=== PATIENT | female | born 1990 | race Caucasian/White ===

== ENCOUNTER 2017-12-14 08:15 | Emergency (ER) | payer MEDICAID, SELFPAY ==
[2017-12-14 08:25] VITALS: BP 119/73; PULSE 74; RESP 16; TEMP 36.6; O2SAT 99
--- NOTE | 2017-12-14 08:58 | DI.CT_ITS ---
SYMPTOM/DIAGNOSIS: HEADACHE R/O ACUTE DISEASE CRANIAL CT (WITHOUT CONTRAST): Noncontrast. No priors. A noncontrast cranial CT was performed. The ventricular system is normal in appearance. There is no evidence of an intracranial mass lesion. There is no evidence of a subdural or epidural hematoma. No focal areas of decreased attenuation are seen. CONCLUSION: Normal noncontrast Cranial CT. The findings were discussed with the Emergency Department on the date of the examination.
--- NOTE | 2017-12-14 09:01 | ED.GENADUL_ITS ---
Discharge Plan Disposition Patient Disposition: HOME Condition: Improving Discharge Details Chief Complaint: Headache Clinical Impression: Headache, Abdominal pain Primary Care Provider: Abbey Fuentes ED Provider: Precious Paiz Home Meds and New Rx's Prescriptions: Continue levothyroxine 125 MCG tablet 125 mcg PO DAILY@0600 Qty: 30 RF: 0 acetaminophen [Tylenol] 325 MG tablet 1,000 mg PO Q4H PRN PRNRF: 0 amoxicillin 500 mg Capsule 1 tab PO Q8H RF: 0 sertraline 25 mg Tablet 25 mg PO DAILY RF: 0 ibuprofen 600 MG tablet 600 mg PO Q6H PRN PRNRF: 0 Discharge Instructions Instructions: Abdominal Pain (ED), General Headache (ED) Additional Instructions: Drink plenty of fluids and get plenty of rest. Alternate Tylenol and Motrin as needed and directed for pain. Follow-up with her primary care doctor in 1 week for reevaluation. Return to the emergency department with any worsening or new concerning symptoms. Discharge Data Discharge Date/Time-TO BE ENTERED AT DEPARTURE: 12/14/17 11:17 Discharge Physician: Precious Paiz Medical Decision Making Patient is a 27-year-old female with a history of anxiety, depression and hypothyroidism who presents for headache and abdominal pain for 2 days. Headache is bitemporal, worse when bending over. Admits to photophobia and blurry vision but denies any nausea, vomiting, diarrhea neck pain, urinary symptoms, dizziness. She denies a history of headaches but has a family history of migraines. She states the headache started gradually and denies thunderclap and states is not the worst headache of her life. Vitals within normal limits. No focal deficits. Abdomen is soft but very minimally diffusely tender. No meningeal signs. She appears nontoxic and in no acute distress but does appear uncomfortable with headache. She is currently on amoxicillin for a recent dental abscess but denies any dental pain and no acute abscess noted on exam. Differential diagnosis includes tension headache, dehydration, migraine. Doubt meningitis as she denies fever, neck pain and no focal deficits. Will place an IV, bolus IV fluids, Compazine, Benadryl, Toradol and obtain a CT head. Will hold on CT abdomen at this time and the patient is agreeable. 1050 -- Labs reviewed and unremarkable. CT head negative. Patient states she feels much better and is requesting to go home. Patient that her symptoms can be due to tension headache, migraine, dehydration. Also discussed the possibility of serious causes of headache but doubt meningitis, or subarachnoid hemorrhage and patient agrees and would not want LP. Patient instructed on the importance of rest, fluids. Will send home with 2 tabs of Compazine. She is instructed to alternate Tylenol and Motrin. She is instructed to return here immediately with any worsening symptoms and follow-up with her primary care doctor early next week. HPI General Mode of arrival: ambulatory . Date/Time Provider Initiated Documentation: 12/14/17 08:26 . Limitations to Documentation: no limitations . Information obtained by: patient . HPI Narrative: Patient is a 27-year-old female with history of anxiety, depression and hypothyroidism who presents for headache and abdominal pain for the past 2 days. States the headache is bitemporal, throbbing, worse with bending over, and no improvement with Tylenol or Motrin. She states she woke up at 3 AM this morning crying due to the headache and states it is 9/10. She states the headache began gradually 2 days ago and has worsened since then. Denies thunderclap-like headache. States it feels like she is hearing a pulse in my ears . Denies known history of headaches or migraines but does admit to a family history of migraines. She states her abdominal pain started around the same time and is diffuse, stabbing and feels like she was kicked in the got . She states she has been eating and drinking normally and denies nausea, vomiting, diarrhea, fever, urinary symptoms. She does admit to photophobia and blurry vision. She denies dizziness, neck pain. Her last dose of Tylenol was 3 :30 AM. History: Anxiety, depression, hypothyroidism Surgical history: Tubal ligation, dental surgery as a child Social history: Smokes tobacco, daily marijuana use, denies alcohol use. FH: Migraines - grandmother and aunt Medications: Zoloft, Tylenol, ibuprofen, Synthroid, on amoxicillin currently for a dental abscess which is improving. Allergies: Prozac, Remeron Bad side effects PCP: Abbey Fuentes LMP: 2 weeks ago Related Data Home Medications Medication Instructions Recorded Confirmed ibuprofen 600 mg PO Q6H PRN PRN tab 04/28/17 12/14/17 levothyroxine 125 mcg PO DAILY@0600 #30 tab 05/28/17 12/14/17 acetaminophen [Tylenol] 1,000 mg PO Q4H PRN PRN 12/14/17 12/14/17 amoxicillin 1 tab PO Q8H 12/14/17 12/14/17 sertraline 25 mg PO DAILY 12/14/17 12/14/17 Previous Rx's Medication Instructions Recorded ibuprofen 600 mg PO Q6H PRN PRN tab 04/28/17 levothyroxine 125 mcg PO DAILY@0600 #30 tab 05/28/17 Allergies Allergy/AdvReac Type Severity Reaction Status Date / Time mirtazapine [From Remeron] AdvReac Severe Agitation Unverified 08/01/17 12:56 fluoxetine HCl [From Prozac] AdvReac Agitation Unverified 08/01/17 12:56 General Stated Complaint: Headache MELBA: 3 Review of Systems Review of Systems All systems reviewed & are unremarkable except as noted in HPI and below Constitutional Denies chills, Denies excessive sweating, Denies fatigue, Denies fever(s), Reports headache(s), Denies weakness and Denies weight loss Eyes Reports system reviewed and no additional complaints, except as docu and Reports blurry vision ENT Denies vertigo, Denies dizziness, Denies otalgia, Reports headache(s), Denies nasal congestion, Denies sore throat and Denies throat swelling Cardiovascular Denies chest pain, Denies syncope, Denies rapid heart rate and Denies dyspnea Respiratory Denies dyspnea Gastrointestinal Reports abdominal pain, Denies diarrhea and Denies vomiting Genitourinary Denies hematuria, Denies dysuria and Denies flank pain Musculoskeletal Denies back pain and Denies joint swelling Integumentary/Breasts Denies lesions and Denies rash Neurologic Denies behavioral changes, Denies confusion, Denies vertigo, Denies dizziness, Denies syncope, Reports headache(s) and Denies weakness Psychiatric Denies behavioral changes, Denies confusion and Denies depression Endocrine Denies excessive sweating and Denies fatigue Hematologic/Lymphatic Denies easy bruising and Denies lymphadenopathy Allergic/Immunologic Denies throat swelling PFSH Family History Mother No problems noted. Father FHx: Sibxuke-Voykp-Dwlyi disease Maternal Aunt No problems noted. Maternal Cousin No problems noted. Medical History Anxiety with depression Hypothyroidism Poor dentition Root canal Social History Smoking/Tobacco Use Status: Current every day Surgical History Ligation of fallopian tube (07/18/17) Exam Const General: cooperative and healthy appearing Orientation: alert and awake HENMI Head: normal to inspection Ears: hearing grossly normal bilaterally, external ears normal and TM's normal bilaterally General nose exam: external nose normal Face and sinus: sinus tenderness frontal (bilaterally) Mouth: oral mucosae normal Teeth and gingiva: dentition normal Throat: posterior oropharynx normal and uvula midline Eyes General: appearance normal, both eyes and all related structures Eyelids: eyelids normal Pupils: PERRL EOM: EOM intact bilaterally Neck Neck: normal visual inspection Lymphatic: no lymphadenopathy noted Chest Chest: normal inspection of the chest Resp Effort & Inspection: normal respiratory effort and able to speak in complete sentences Auscultation: clear to auscultation bilaterally Cardio Rate: regular rate Rhythm: regular rhythm GI Inspection: normal to inspection Palpation: soft, not firm, no guarding, no hepatosplenomegaly, no masses and tender (very minimal diffusely tender) Auscultation: normal bowel sounds Back/Spine/Pelvis Back: no CVA tenderness Skin General skin exam: no rashes or lesions noted Neuro General: alert, awake, oriented x3 and no focal motor deficits Cranial Nerves: CN's II-XI intact bilaterally Cognition: normal cognition Speech: speech normal Gait: normal gait Motor: muscle tone normal throughout and strength 5/5 throughout Sensory Exam: no sensory deficits noted Other: Negative Kernig's and Brudzinski's signs Extrem General: normal to inspection, full ROM and normal capillary refill Psych Appearance: grossly normal Mental Status: mental status grossly normal Speech and Movement: speech and movement normal Affect: normal affect Thought Process: normal Course Vital Signs Temperature 97.9 F 12/14/17 08:25 Pulse 74 12/14/17 08:25 Respiratory Rate 16 12/14/17 08:25 Blood Pressure 119/73 12/14/17 08:25 Pulse Oximetry 99 12/14/17 08:25 Temperature 97.9 F 12/14/17 08:25 Temperature Source Temporal Artery Scan 12/14/17 08:25 Pulse 74 12/14/17 08:25 Respiratory Rate 16 12/14/17 08:25 Respiratory Effort 12/14/17 08:30 Blood Pressure 119/73 12/14/17 08:25 Pulse Oximetry 99 12/14/17 08:25 Oxygen Delivery Method Room Air 12/14/17 08:25 Oxygen Flow Rate 0 12/14/17 08:25 Pain Level 9 12/14/17 08:34 Lab/Test Results Lab/Test Results: POC- Test(urine) Negative
[2017-12-14] MEDS: diphenhydrAMINE 50 MG/ML VIAL 25 MG IVP (09:14)
[2017-12-14] MEDS: Prochlorperazine 10 MG/2 ML VIAL IVP (09:15)
[2017-12-14] MEDS: Ketorolac 30 MG/ML VIAL IVP (09:15)
[2017-12-14 09:23] LABS: HCT 41.3 % (36.0-46.0); HGB 14.2 g/dL (12.0-15.5); Mean Corp. HGB Concentration 34.4 g/dL (32.0-36.0); Mean Corpuscular Hemoglobin 30.8 pg (27.0-33.0); Mean Corpuscular Volume 89.6 fL (80-95); Mean Platelet Volume 9.2 fL (8.0-11.0); Platelet Count 289 x1000/uL (130-400); RBC 4.61 m/cumm (4.00-5.20); RBC Distribution Width 13.8 % (11.7-14.6); White Blood Cell Count 7.57 k/cumm (4.4-10.8)
[2017-12-14 09:39] LABS: ALT 27 U/L (12-78); AST 13 U/L (15-37); Alkaline Phosphatase 41 U/L (46-116); Anion Gap 6.7 mmol/L (3-11); BUN 13 mg/dL (7-18); Bilirubin, Total 0.3 mg/dL (0.2-1.0); CO2 28.3 mmol/L (21.0-32.0); Calcium 8.3 mg/dL (8.5-10.1); Chloride 102 mmol/L (98-107); Glucose 91 mg/dL (70-100); Lipase 103 U/L (73-393); Potassium 3.9 mmol/L (3.5-5.1); Sodium 137 mmol/L (136-145); Total Protein 7.2 g/dL (6.4-8.2)
[2017-12-14 11:06] VITALS: BP 102/60; PULSE 54; RESP 17; TEMP 36.8; O2SAT 98
[2017-12-14] MEDS: Prochlorperazine 10 MG TAB PO (11:17)
== END 2017-12-14 11:17 | disposition home or self-care (01) ==
PROVIDERS: Emergency Provider Physician Assistant; PCP Nurse Practitioner Family
DX: R51 Headache (principal); R10.817 Generalized abdominal tenderness
CPT/HCPCS: 36415; 80053; 81025; 83690; 85027; 96374; 96375; 99284; 70450; 99285; J0780; J1200; J1885

== ENCOUNTER 2018-04-15 14:21 | Outpatient (REF) | payer MEDICAID, SELFPAY | END 2018-04-15 14:41 | LOC: NCHCN 14:21 | PROVIDERS: PCP Nurse Practitioner Family; Visit Provider Nurse Practitioner Family | DX: R30.0 Dysuria (principal) | CPT/HCPCS: 87077; 87086; 87186 ==

== ENCOUNTER 2018-08-06 11:13 | Outpatient (REF) | payer SELFPAY ==
[2018-08-06 12:54] LABS: TSH (W/Ref FT4) 30.07 uIU/mL (0.358-3.74)
[2018-08-06 13:17] LABS: FREE T4 0.59 ng/dL (0.76-1.46)
== END 2018-08-06 11:33 ==
LOC: NCHCN 11:13
PROVIDERS: PCP Nurse Practitioner Family; Visit Provider Nurse Practitioner Family
DX: E03.9 Hypothyroidism, unspecified (principal)
CPT/HCPCS: 84439; 84443

== ENCOUNTER 2018-08-19 13:53 | Outpatient (CLI) | payer SELFPAY ==
--- NOTE | 2018-08-19 13:27 | DI.RAD_ITS ---
SYMPTOMS/DIAGNOSIS: RIGHT HEEL PAIN X 2 MOS, M79.671 RIGHT FOOT: Three views were obtained. There is a minimal osteophyte at the site of attachment of the Achilles tendon on the calcaneus. No other bony or soft tissue abnormality seen.
== END 2018-08-19 14:13 ==
PROVIDERS: PCP Nurse Practitioner Family; Visit Provider Nurse Practitioner Family
DX: M79.671 Pain in right foot (principal); M25.771 Osteophyte, right ankle
CPT/HCPCS: 73630

== ENCOUNTER 2019-05-21 13:16 | Outpatient (REF) | payer MEDICAID, SELFPAY ==
[2019-05-21 20:45] LABS: HCT 39.1 % (36.0-46.0); HGB 13.1 g/dL (12.0-15.5); Mean Corp. HGB Concentration 33.5 g/dL (32.0-36.0); Mean Corpuscular Hemoglobin 31.3 pg (27.0-33.0); Mean Corpuscular Volume 93.3 fL (80-95); Platelet Count 346 x1000/uL (130-400); RBC 4.19 m/cumm (4.00-5.20); RBC Distribution Width 13.9 % (11.7-14.6); White Blood Cell Count 7.59 k/cumm (4.4-10.8)
[2019-05-21 20:58] LABS: ALT 42 U/L (14-59); AST 31 U/L (15-37); Albumin 4.7 g/dL (3.4-5.0); Alkaline Phosphatase 37 U/L (46-116); BUN 9 mg/dL (7-18); Bilirubin, Total 0.2 mg/dL (0.2-1.0); CREATININE 0.73 mg/dL (0.55-1.02); Chloride 102 mmol/L (98-107); Glucose 78 mg/dL (74-106); Potassium 4.1 mmol/L (3.5-5.1); Sodium 138 mmol/L (136-145); Total Protein 7.9 g/dL (6.4-8.2)
[2019-05-21 21:22] LABS: TSH (W/Ref FT4) 80.35 uIU/mL (0.36-3.74)
[2019-05-21 21:39] LABS: FREE T4 0.39 ng/dL (0.76-1.46)
== END 2019-05-21 13:36 ==
LOC: NCHCN 13:16
PROVIDERS: PCP Nurse Practitioner Family; Visit Provider Nurse Practitioner Family
DX: E03.9 Hypothyroidism, unspecified (principal)
CPT/HCPCS: 80053; 85027; 84439; 84443

== ENCOUNTER 2019-07-17 13:55 | Outpatient (REF) | payer MEDICAID, SELFPAY ==
[2019-07-17 15:39] LABS: ALT 20 U/L (14-59); AST 16 U/L (15-37); Albumin 4.2 g/dL (3.4-5.0); Alkaline Phosphatase 39 U/L (46-116); Anion Gap 9.3 mmol/L (3-11); BUN 11 mg/dL (7-18); Bilirubin, Total 0.3 mg/dL (0.2-1.0); CO2 26.7 mmol/L (21.0-32.0); CREATININE 0.78 mg/dL (0.55-1.02); Calcium 8.8 mg/dL (8.5-10.1); Chloride 102 mmol/L (98-107); Glucose 97 mg/dL (74-106); Potassium 3.9 mmol/L (3.5-5.1); Sodium 138 mmol/L (136-145); TSH (W/Ref FT4) 76.49 uIU/mL (0.36-3.74); Total Protein 7.6 g/dL (6.4-8.2)
[2019-07-17 16:13] LABS: FREE T4 0.43 ng/dL (0.76-1.46)
== END 2019-07-17 14:15 ==
LOC: NCHCN 13:55
PROVIDERS: PCP Nurse Practitioner Family; Visit Provider Nurse Practitioner Family
DX: E03.9 Hypothyroidism, unspecified (principal); Z00.00 Encounter for general adult medical examination without abnormal findings
CPT/HCPCS: 80053; 84439; 84443

== ENCOUNTER 2019-08-13 22:18 | Outpatient (REF) | payer MEDICAID, SELFPAY ==
[2019-08-15 07:29] LABS: COVID-19 RT-PCR Result NEGATIVE (Negative)
== END 2019-08-13 22:38 ==
LOC: NCHCN 22:18
PROVIDERS: PCP Nurse Practitioner Family; Visit Provider Nurse Practitioner Family
DX: Z11.59 Encounter for screening for other viral diseases (principal)
CPT/HCPCS: U0003

== ENCOUNTER 2019-10-13 18:56 | Outpatient (REF) | payer MEDICAID, SELFPAY ==
[2019-10-13 18:36] LABS: Bilirubin Negative (Negative); Blood Trace-lysed (Negative); Clarity Clear (Clear); Glucose Negative (Negative); Ketones Negative (Negative); Leukocyte Esterase Negative (Negative); Nitrite Negative (Negative); Specific Gravity 1.015 (1.005-1.025); Urobilinogen 0.2 EU/dL (Up TO 0.2); pH 5.5 (5-8)
[2019-10-13 18:43] LABS: Bacteria Rare HPF (Negative); C & S Indicated? C&S Done As Ordered; Casts Negative LPF (Negative); Crystals Negative HPF (Negative); Epithelial Cells Few HPF (Negative); Mucus Negative (Negative); RBC 0-2 HPF (0-2)
[2019-10-13 18:50] LABS: HCT 39.1 % (36.0-46.0); Mean Corp. HGB Concentration 33.2 g/dL (32.0-36.0); Mean Corpuscular Hemoglobin 30.7 pg (27.0-33.0); Mean Corpuscular Volume 92.2 fL (80-95); Mean Platelet Volume 10.2 fL (8.0-11.0); Platelet Count 345 x1000/uL (130-400); RBC 4.24 m/cumm (4.00-5.20); RBC Distribution Width 13.8 % (11.7-14.6); White Blood Cell Count 7.67 k/cumm (4.4-10.8)
[2019-10-13 19:07] LABS: ALT 43 U/L (14-59); AST 25 U/L (15-37); Albumin 4.2 g/dL (3.4-5.0); Alkaline Phosphatase 46 U/L (46-116); BUN 12 mg/dL (7-18); Bilirubin, Total 0.2 mg/dL (0.2-1.0); Calcium 9.4 mg/dL (8.5-10.1); Chloride 103 mmol/L (98-107); Glucose 93 mg/dL (74-106); Potassium 4.5 mmol/L (3.5-5.1); Sodium 139 mmol/L (136-145); TSH (W/Ref FT4) 26.38 uIU/mL (0.36-3.74); Total Protein 7.4 g/dL (6.4-8.2)
[2019-10-13 19:25] LABS: FREE T4 0.64 ng/dL (0.76-1.46)
== END 2019-10-13 19:16 ==
LOC: NCHCN 18:56
PROVIDERS: PCP Nurse Practitioner Family; Visit Provider Nurse Practitioner Family
DX: R53.83 Other fatigue (principal); E03.9 Hypothyroidism, unspecified; E04.9 Nontoxic goiter, unspecified
CPT/HCPCS: 80053; 85027; 81003; 81015; 84439; 84443; 87086

== ENCOUNTER 2019-11-12 00:50 | Outpatient (CLI) | payer MEDICAID, SELFPAY ==
--- NOTE | 2019-11-12 | DI.US_ITS ---
EXAM: US THYROID CLINICAL HISTORY: ENLARGED THYROID,E04.9,HYPOTHYROIDISM,E03.9 TECHNIQUE: Ultrasound performed using standard protocol. COMPARISON: US [facility] OB from 04/26/2017 FINDINGS: Thyroid ultrasound was performed according to the usual protocol. Thyroid gland is markedly heteroge neous and atrophic, right lobe measures 36 x 10 x 11 millimeters and left lobe measures 41 x 6.7 x 13 millimeters. No focal lesion identified. IMPRESSION: Atrophic heterogeneous thyroid gland. No focal abnormality seen. DATA REPOSITORY:
== END 2019-11-12 01:10 ==
PROVIDERS: PCP Nurse Practitioner Family; Visit Provider Nurse Practitioner Family
DX: E03.4 Atrophy of thyroid (acquired) (principal); E04.9 Nontoxic goiter, unspecified
CPT/HCPCS: 76536

== ENCOUNTER 2020-03-23 15:47 | Outpatient (REF) | payer MEDICAID, SELFPAY ==
[2020-03-23 21:04] LABS: TSH (W/Ref FT4) 114.11 uIU/mL (0.36-3.74)
[2020-03-23 21:25] LABS: FREE T4 0.25 ng/dL (0.76-1.46)
== END 2020-03-23 16:07 ==
LOC: NCHCN 15:47
PROVIDERS: PCP Nurse Practitioner Family; Visit Provider Nurse Practitioner Family
DX: E03.9 Hypothyroidism, unspecified (principal); M54.5 Low back pain; R82.998 Other abnormal findings in urine
CPT/HCPCS: 84439; 84443; 87086

== ENCOUNTER 2020-10-25 13:07 | Outpatient (REF) | payer MEDICAID, SELFPAY ==
[2020-10-25 19:33] LABS: Abs Immature Grans 0.02 10^3/uL (0.0-0.06); Absolute Basophil Count 0.08 10^3/uL (0.0-0.2); Absolute Eosinophil Count 0.36 10^3/uL (0.0-0.7); Absolute Lymphocyte Count 2.96 10^3/uL (1.2-3.4); Absolute Monocyte Count 0.41 10^3/uL (0.1-0.8); Absolute Neutrophil Count 4.11 10^3/uL (1.2-6.7); Eosinophils % 4.5; HCT 37.3 % (36.0-46.0); HGB 12.3 g/dL (11.2-15.7); Immature Grans % 0.3; Lymphocytes % 37.3; MCH 30.8 pg (27.0-33.0); MCV 93.5 fL (80-95); MPV 10.1 fL (8.0-11.0); Monocytes % 5.2; Neutrophils % 51.7; Nucleated RBC 0 %; Platelet Count 327 10^3/uL (130-400); RBC 3.99 10^6/uL (3.93-5.22); RDW 15.2 % (11.7-14.6); RDW-SD 52.9 fL; WBC 7.94 10^3/uL (4.4-10.8)
[2020-10-25 19:36] LABS: ALT 45 U/L (14-59); AST 31 U/L (15-37); Albumin 4.8 g/dL (3.4-5.0); Alkaline Phosphatase 42 U/L (46-116); Anion Gap 8.7 mmol/L (3-11); BUN 9 mg/dL (7-18); Bilirubin, Total 0.3 mg/dL (0.2-1.0); CO2 29.3 mmol/L (21.0-32.0); CREATININE 0.9 mg/dL (0.55-1.02); Calcium 9.6 mg/dL (8.5-10.1); Chloride 102 mmol/L (98-107); Glucose 89 mg/dL (74-106); Lipase 97 U/L (73-393); Potassium 4.2 mmol/L (3.5-5.1); Sodium 140 mmol/L (136-145); Total Protein 8.1 g/dL (6.4-8.2)
== END 2020-10-25 13:08 | disposition home or self-care (01) ==
LOC: LBN 13:07
PROVIDERS: PCP Nurse Practitioner Family; Visit Provider Nurse Practitioner Family
DX: R19.01 Right upper quadrant abdominal swelling, mass and lump (principal); R10.11 Right upper quadrant pain
CPT/HCPCS: 80053; 83690; 85025

== ENCOUNTER 2020-10-26 01:29 | Outpatient (CLI) | payer MEDICAID, SELFPAY ==
--- NOTE | 2020-10-26 07:30 | DI.CT_ITS ---
Exam(s) CT ABDOMEN PELVIS W EXAM: CT ABDOMEN PELVIS W CLINICAL HISTORY: RUQ abdominal mass unknown etiology,R19.00. TECHNIQUE: Imaging Protocol: Axial computed tomography images with coronal and sagittal reformatted images were created and reviewed CONTRAST MATERIAL: Intravenous: Omnipaque 350 Contrast volume:100 ml Oral: yes / COMPARISON: No exams were available for comparison FINDINGS: ABDOMEN: Lung Bases: Normal where visualized. Liver: Enlarged. Moderate to severe fatty infiltration.. No measurable mass. Gallbladder and biliary tract: No radiodense calculus or dilation. Pancreas: Normal density, no abnormal calcifications or inflammatory process. Spleen: Normal. Kidneys: Normal size, contour and axis. No radiodense stones or obstructive uropathy. No masses seen. Adrenal glands: No masses seen. Abdominal Aorta: Abdominal portion non-dilated. Soft tissues: No soft tissue mass or abdominal wall hernia. PELVIS: Bladder: No gross wall thickening. No calculi.No focal mass. Bowel: No obstruction or bowel wall thickening. Appendix normal. Peritoneal cavity: No ascites, collection or mesenteric inflammatory response. Bones: Within normal limits for age. Reproductive organs: Retroverted uterus. Within normal limits. Lymph nodes: Unremarkable. Impression: Enlarged fatty liver, otherwise unremarkable CT scan of the abdomen and pelvis. RADIATION DOSE DELIVERED: 1,311.89mGy.cm Total DLP DATA REPOSITORY: All CT scans at this facility are submitted to the National Radiology Data Registry (NRDR) Dose Index Registry (DIR) with the [employer] (A[employer]). RADIATION OPTIMIZATION: All CT scans at this facility use at least one of these dose optimization te chniques: automated exposure control; mA and/or kV adjustment per patient size (includes targeted exa ms where dose is matched to clinical indication); or iterative reconstruction.
[2020-10-26] MEDS: Breeza Beverage 473 ML BTL PO ×2 (12:16→12:17)
[2020-10-26] MEDS: Omnipaque 350 MG/ML 50 ML BTL PO (12:17)
[2020-10-26] MEDS: Omnipaque 350 MG/ML 100 ML BTL IJ (13:24)
[2020-10-26] MEDS: Normal Saline - Diluent 50 ML VIAL IV (13:25)
== END 2020-10-26 01:49 ==
PROVIDERS: PCP Nurse Practitioner Family; Visit Provider Nurse Practitioner Family
DX: K76.0 Fatty (change of) liver, not elsewhere classified (principal); R19.00 Intra-abdominal and pelvic swelling, mass and lump, unspecified site
CPT/HCPCS: 74177; J3490; Q9967

== ENCOUNTER 2021-06-22 13:43 | Outpatient (REF) | payer MEDICAID, SELFPAY ==
[2021-06-22 23:26] LABS: TSH 63.71 uIU/mL (0.36-3.74)
== END 2021-06-22 13:44 | disposition home or self-care (01) ==
LOC: NCHCN 13:43
PROVIDERS: PCP Nurse Practitioner Family; Visit Provider Physician Assistant
DX: E03.9 Hypothyroidism, unspecified (principal)
CPT/HCPCS: 84443

== ENCOUNTER 2021-07-03 12:56 | Emergency (ER) | payer MEDICAID, SELFPAY ==
[2021-07-03 13:04] VITALS: BP 126/62; PULSE 76; RESP 16; TEMP 36.3; O2SAT 98
--- NOTE | 2021-07-03 13:16 | W.ED.GENAD ---
Discharge Plan Disposition Patient Disposition: HOME Condition: Stable Discharge Details Clinical Impression: Vertigo Primary Care Provider: Stanley Ferguson ED Provider: Humberto Pruitt Home Meds and New Rx's Prescriptions: New meclizine 25 mg tablet 25 mg PO TID PRN (Reason: dizziness) Qty: 30 0RF Continued escitalopram oxalate [Lexapro] 20 mg tablet 20 mg PO DAILY 0RF levothyroxine 125 MCG tablet 125 mcg PO DAILY@0600 Qty: 30 0RF acetaminophen [Tylenol] 325 MG tablet 1,000 mg PO Q4H PRN PRN0RF ibuprofen 600 MG tablet 600 mg PO Q6H PRN PRN0RF buspirone 5 mg tablet 5 mg PO BID 0RF Label Comments: TAKE 1 TABLET BY MOUTH TWICE DAILY Discharge Instructions Instructions: Vertigo (ED) Additional Instructions: follow up with your primary care provider within 1 week if you feel more ill, have severe worsening symptoms or pain return to the emergency department Medical Decision Making 30 yo female with hx of hypothyroidism who comes in with cc of feeling dizzy with head turning. She states yesterday she started with a sore throat and bilateral ear pain and today since waking up has felt dizzy with changing postiions, feels the room is spinning. Denies any headaches, fevers, chills, neck stiffness, chest pain, lightheadedness, dyspnea. She localizes discomfort to the posterior pharynx. She arrives stable speaking clearly and in full sentences and swallowing normally. Her bilateral tm's and external auditory canals are normal, perrl, eomi, posterior pharynx with mild erythema, no exudatges and uvula is midline. No submandibular swelling or restricted neck movements or pain over the hyoid, no findings to suggest abscess or epiglotitis. Her symptoms seem typical for uri and likely has labrynthitis. She has a reassuring hints exam and normal gait so doubt central vertigo. Will test for strep and covid and also treat with meclizine and reassess. labs show elevated tsh and midly low free t4, she states she has this checked frequently at her pcp's office and is always abnormal, do not feel it requires inpatient management and can f/u with pcp. She feels better, ambulating without assistance with continued normal neuro exam. Will prescribe prn meclizine and advised to f/u with pcp, return precautions given. Suspect peripheral vertigo due to labrynthitis. Differential Diagnosis Differential Diagnosis: labrynthitis, vertigo, uri, strep HPI General Mode of arrival: ambulatory. Date/Time Provider Initiated Documentation: 07/03/21 12:58. Limitations to Documentation: no limitations. Information obtained by: patient. History of Present Illness 30 year old F presents to the emergency department with the chief complaint of dizziness, described as moderate, Patient started experiencing this day(s) (1) and it has been intermittent. improves with No relieving factors improve symptom(s), No exacerbating factors reported . Patient notes denies fever/chills. Patient did receive the following treatments prior to arrival, none Related Data Home Medications Medication Instructions Recorded Confirmed ibuprofen 600 mg tablet 600 mg PO Q6H PRN PRN tab 04/28/17 07/03/21 levothyroxine 125 mcg tablet 125 mcg PO DAILY@0600 #30 tab 05/28/17 07/03/21 acetaminophen 325 mg tablet 1,000 mg PO Q4H PRN PRN 12/14/17 07/03/21 (Tylenol) escitalopram oxalate 20 mg tablet 20 mg PO DAILY 10/25/20 07/03/21 (Lexapro) buspirone 5 mg tablet 5 mg PO BID 07/03/21 07/03/21 meclizine 25 mg tablet 25 mg PO TID PRN #30 tab 07/03/21 Previous Rx's Medication Instructions Recorded ibuprofen 600 mg tablet 600 mg PO Q6H PRN PRN tab 04/28/17 levothyroxine 125 mcg tablet 125 mcg PO DAILY@0600 #30 tab 05/28/17 meclizine 25 mg tablet 25 mg PO TID PRN #30 tab 07/03/21 Allergies Allergy/AdvReac Type Severity Reaction Status Date / Time mirtazapine [From Remeron] AdvReac Severe Agitation Verified 10/25/20 11:57 fluoxetine HCl [From Prozac] AdvReac Agitation Verified 10/25/20 11:57 General Stated Complaint: Dizzy/Sync MELBA: 3 Review of Systems All systems reviewed & are unremarkable except as noted in HPI and below Constitutional Constitutional: Denies chills, Denies fever(s) and Denies weakness Eyes Eyes: Denies loss of vision ENT Ears, Nose, Mouth, and Throat: Denies change in voice Cardiovascular Cardiovascular: Denies chest pain and Denies dyspnea Respiratory Respiratory: Denies cough and Denies dyspnea Gastrointestinal Gastrointestinal: Denies abdominal pain, Denies nausea and Denies vomiting Genitourinary Genitourinary: Denies dysuria Musculoskeletal Musculoskeletal: Denies joint swelling Integumentary/Breasts Skin/Breast: Denies rash Neurologic Neurologic: Denies loss of vision and Denies weakness PFSH All Active Problems (Updated 07/03/21 @ 14:44 by Humberto Pruitt MD) Vertigo (Acute) Medical History (Updated 07/03/21 @ 14:44 by Humberto Pruitt MD) Anxiety with depression Off and On since age 15, typically situational. Onset after parents divorce, again with of grandfather. Previous use of Remeron, Prozac, Celexa Hypothyroidism Onset at age 9. Diagnosed with goiter Seen by [facility] [employer] at [facility]. Poor dentition Root canal 11/29 Surgical History (Updated 01/02/18 @ 14:35 by [employer] [place]) Ligation of fallopian tube (07/18/17) Bilateral laparoscopic salpingectomy for sterilization. Normal pathology. Family History Mother No problems noted. Father FHx: Duflmpn-Gdgda-Ubojz disease Maternal Aunt No problems noted. Maternal Cousin No problems noted. Social History Smoking/Tobacco Use Status: Current every day Tobacco Type: cigarettes Smoking risk assessment performed?: Yes Alcohol Intake: never Drug use: Daily Substance use type: marijuana Do you feel safe in your relationship?: Yes Exam Const General: no acute distress Orientation: alert HENMT Head: normal to inspection Ears: external ears normal General nose exam: external nose normal Mouth: oral mucosae normal and moist mucous membranes Eyes General: appearance normal, both eyes and all related structures Neck Neck: normal visual inspection Resp Effort & Inspection: normal respiratory effort and able to speak in complete sentences Cardio Rate: regular rate Skin General skin exam: no rashes or lesions noted Neuro General: patient alert and patient oriented x3 Extrem General: normal to inspection Psych Mental Status: mental status grossly normal Course Vital Signs Vital signs: Vital Signs Temperature 36.3 C L 07/03/21 13:04 Pulse 76 07/03/21 13:04 Respiratory Rate 16 07/03/21 13:04 Blood Pressure 126/62 07/03/21 13:04 Pulse Oximetry 98 07/03/21 13:04 Temperature 36.3 C L 07/03/21 13:04 Temperature Source Temporal Artery Scan 07/03/21 13:04 Pulse 76 07/03/21 13:04 Respiratory Rate 16 07/03/21 13:04 Respiratory Effort 07/03/21 13:04 Blood Pressure 126/62 07/03/21 13:04 Blood Pressure Position Sitting 07/03/21 13:04 Pulse Oximetry 98 07/03/21 13:04 Oxygen Delivery Method Room Air 07/03/21 13:04 Oxygen Flow Rate 0 07/03/21 13:04 Pain Level 6 07/03/21 13:04
[2021-07-03] MEDS: Normal Saline 1,000 ML 1000 ML IV (13:30)
[2021-07-03] MEDS: Meclizine 25 MG TAB PO (13:30)
[2021-07-03 13:43] LABS: Abs Immature Grans 0.02 10^3/uL (0.0-0.06); Absolute Basophil Count 0.09 10^3/uL (0.0-0.2); Absolute Eosinophil Count 0.28 10^3/uL (0.0-0.7); Absolute Lymphocyte Count 2.76 10^3/uL (1.2-3.4); Absolute Monocyte Count 0.43 10^3/uL (0.1-0.8); Absolute Neutrophil Count 3.62 10^3/uL (1.2-6.7); Basophils % 1.3; Eosinophils % 3.9; HCT 35.4 % (36.0-46.0); HGB 11.5 g/dL (11.2-15.7); Immature Grans % 0.3; Lymphocytes % 38.3; MCH 29.6 pg (27.0-33.0); MCHC 32.5 % (32.0-36.0); MPV 9.7 fL (8.0-11.0); Neutrophils % 50.2; Platelet Count 376 10^3/uL (130-400); RBC 3.89 10^6/uL (3.93-5.22); RDW 13.9 % (11.7-14.6); RDW-SD 46.7 fL
[2021-07-03] MEDS: Normal Saline Flush 10 ML SYR IVP (13:45)
[2021-07-03 13:53] LABS: Diff Comment Agrees w/ Instrument; RBC Morphology Normal
[2021-07-03 13:59] LABS: ALT 18 U/L (14-59); AST 17 U/L (15-37); Albumin 4.5 g/dL (3.4-5.0); Alkaline Phosphatase 66 U/L (46-116); Anion Gap 9.6 mmol/L (3-11); BUN 8 mg/dL (7-18); Bilirubin, Total 0.4 mg/dL (0.2-1.0); CO2 27.4 mmol/L (21.0-32.0); CREATININE 0.9 mg/dL (0.55-1.02); Chloride 102 mmol/L (98-107); Glucose 87 mg/dL (74-106); Potassium 3.6 mmol/L (3.5-5.1); Sodium 139 mmol/L (136-145); TSH (W/Ref FT4) 80.03 uIU/mL (0.36-3.74); Total Protein 8.4 g/dL (6.4-8.2)
[2021-07-03 14:02] LABS: Source Nasal/Nares
[2021-07-03 14:08] VITALS: RESP 16
[2021-07-03 14:17] LABS: FREE T4 0.53 ng/dL (0.76-1.46)
--- NOTE | 2021-07-03 14:34 | NUR.NOTE ---
pt ambulatory to [facility] states feeling better Nursing Note:
[2021-07-03 14:42] LABS: COVID-19 PCR Negative (Negative)
== END 2021-07-03 14:50 | disposition home or self-care (01) ==
PROVIDERS: Emergency Provider Emergency Medicine; PCP Nurse Practitioner Family
DX: R42 Dizziness and giddiness (principal); E03.9 Hypothyroidism, unspecified; H92.03 Otalgia, bilateral; Z20.822 Contact with and (suspected) exposure to COVID-19
CPT/HCPCS: 36415; 80053; 87635; 87880; 96360; 99283; 99284; 83735; 84439; 84443; 85025; 87081

== ENCOUNTER 2021-08-23 14:40 | Outpatient (REF) | payer MEDICAID, SELFPAY ==
--- NOTE | 2021-08-23 09:30 | PAPFT_PTH ---
PATIENT: Trinity Morse LOC: [facility]#:[id number] AGE/SX: 30/F ROOM: RE08/23/[address]: Yariel Ferreira : 1990 BED: DIS: 08/23/2021 SPEC #: [id number] RECD: 08/23/21 18:06 STATUS: MIRELLA RERachel #: [id number] CHRISTIAN: 08/23/21 09:[address]: Yariel Ferreira DEPT: [facility] Cytology RECD BY: April Alvarado ENTERED: 08/23/21 18:06 SP TYPE: PAPFT ANABEL DR: Stanley Ferguson Tissues: 1 - CX/ENDOCX FOR PAP SMEARS Procedures: PAP THIN PREP/UVM Screening HPV DNA PROBE Comments: [id number]
[2021-08-23 15:31] LABS: TSH 7.98 uIU/mL (0.36-3.74)
[2021-08-23 17:25] LABS: Calculated LDL 167 mg/dL (<100); Cholesterol 239 mg/dL (<200); HDL Cholesterol 44 mg/dL (40-60); Triglyceride 140 mg/dL (<150)
[2021-08-25 14:45] LABS: Chlamydia Result Negative (Negative); GC Result Negative (Negative)
== END 2021-08-23 14:41 | disposition home or self-care (01) ==
LOC: NCHCN 14:40
PROVIDERS: PCP Nurse Practitioner Family; Visit Provider Physician Assistant
DX: Z11.3 Encounter for screening for infections with a predominantly sexual mode of transmission (principal); Z12.4 Encounter for screening for malignant neoplasm of cervix; Z11.51 Encounter for screening for human papillomavirus (HPV); E03.9 Hypothyroidism, unspecified; Z13.220 Encounter for screening for lipoid disorders
CPT/HCPCS: 80061; 87491; 87591; 88142; 84443; 87624

== ENCOUNTER 2021-09-15 12:06 | Emergency (ER) | payer MEDICAID, SELFPAY ==
[2021-09-15 12:14] VITALS: BP 131/90; PULSE 67; RESP 16; TEMP 36.1; O2SAT 98
[2021-09-15 13:00] LABS: Abs Immature Grans 0.02 10^3/uL (0.0-0.06); Absolute Basophil Count 0.11 10^3/uL (0.0-0.2); Absolute Eosinophil Count 0.34 10^3/uL (0.0-0.7); Absolute Lymphocyte Count 3.35 10^3/uL (1.2-3.4); Absolute Monocyte Count 0.43 10^3/uL (0.1-0.8); Absolute Neutrophil Count 5.02 10^3/uL (1.2-6.7); Basophils % 1.2; Eosinophils % 3.7; HCT 41.4 % (36.0-46.0); HGB 13.7 g/dL (11.2-15.7); Immature Grans % 0.2; Lymphocytes % 36.1; MCH 28.4 pg (27.0-33.0); MCHC 33.1 % (32.0-36.0); MCV 86 fL (80-95); MPV 9.6 fL (8.0-11.0); Monocytes % 4.6; Neutrophils % 54.2; Platelet Count 353 10^3/uL (130-400); RBC 4.83 10^6/uL (3.93-5.22); RDW 14.1 % (11.7-14.6); RDW-SD 43.9 fL; WBC 9.27 10^3/uL (4.4-10.8)
[2021-09-15] MEDS: Normal Saline 1,000 ML 1000 ML IV (13:01)
[2021-09-15 14:33] LABS: ALT 22 U/L (14-59); AST 14 U/L (15-37); Albumin 3.8 g/dL (3.4-5.0); Alkaline Phosphatase 47 U/L (46-116); Anion Gap 7.7 mmol/L (3-11); BUN 6 mg/dL (7-18); Bilirubin, Total 0.2 mg/dL (0.2-1.0); CO2 26.3 mmol/L (21.0-32.0); CREATININE 0.7 mg/dL (0.55-1.02); Calcium 8.7 mg/dL (8.5-10.1); Chloride 104 mmol/L (98-107); Glucose 85 mg/dL (74-106); Potassium 3.7 mmol/L (3.5-5.1); Sodium 138 mmol/L (136-145); TSH 21.52 uIU/mL (0.36-3.74); Total Protein 7.4 g/dL (6.4-8.2)
--- NOTE | 2021-09-15 14:43 | W.ED.GENAD ---
Discharge Plan Disposition Patient Disposition: HOME Condition: Stable Discharge Details Clinical Impression: Hypothyroidism, Insomnia, Anorexia Primary Care Provider: Yariel Ferreira ED Provider: April Gamboa Home Meds and New Rx's Prescriptions: Continued escitalopram oxalate [Lexapro] 20 mg tablet 20 mg PO DAILY acetaminophen [Tylenol] 325 MG tablet 1,000 mg PO Q4H PRN PRN ibuprofen 600 MG tablet 600 mg PO Q6H PRN PRN0RF buspirone 5 mg tablet 5 mg PO DAILY Label Comments: TAKE 1 TABLET BY MOUTH TWICE DAILY meclizine 25 mg tablet 25 mg PO TID PRN (Reason: dizziness) Qty: 30 0RF clonazepam 1 mg tablet 1 mg PO .QHS PRN Label Comments: TAKE 1 TABLET BY MOUTH AT NIGHT AND A 1/2 TABLET DURING THE DAY NEEDED levothyroxine 125 MCG tablet 137 mcg PO DAILY@0600 Discharge Instructions Instructions: Hypothyroidism (ED) Additional Instructions: Your doctor about increasing your thyroid medication today or tomorrow Have regular meals and fluids, have small amount 6 times daily, try bland diet, crackers, applesauce, bananas He should have at least eight 8 ounce glasses of fluid daily, this does not include soda or coffee Referrals: Yariel Ferreira [Primary Care Provider] - Discharge Data Discharge Date/Time-TO BE ENTERED AT DEPARTURE: 09/15/21 15:05 Medical Decision Making Patient has ferritin that is increased from 7.8-21 in the past few weeks, she will need readjustment of her Synthroid, she is referred back to her PCP She appears well, her vitals are stable, and her lab did not show additional evidence of acute abnormality she is discharged home in stable condition with stable vitals and encouraged to drink She is encouraged to return should she have new or worsening Medical Records Medical records reviewed: Yes I reviewed the patient's medical records. Lab Data Lab results reviewed: Yes I reviewed the patient's lab results. HPI General Date/Time Provider Initiated Documentation: 09/15/21 12:08. HPI Narrative: This 30-year-old female with history of depression, anxiety, feeling tired, insomnia. Denies any suicidal ideations, her counselor does not want any psychological evaluation. States she feels like she is dehydrated. States she just recently increased her Synthroid but denies any additional changes. Denies chance of . Denies any pain complaints. States he feels safe at home but has decreased interest in all food and fluids. States he feels tired all the time Related Data Home Medications Medication Instructions Recorded Confirmed ibuprofen 600 mg tablet 600 mg PO Q6H PRN PRN 04/28/17 09/15/21 acetaminophen 325 mg tablet 1,000 mg PO Q4H PRN PRN 12/14/17 09/15/21 (Tylenol) escitalopram oxalate 20 mg tablet 20 mg PO DAILY 10/25/20 09/15/21 (Lexapro) buspirone 5 mg tablet 5 mg PO DAILY 07/03/21 09/15/21 meclizine 25 mg tablet 25 mg PO TID PRN dizziness #30 tabs 07/03/21 09/15/21 clonazepam 1 mg tablet 1 mg PO .QHS PRN 09/15/21 09/15/21 levothyroxine 125 mcg tablet 137 mcg PO DAILY@0600 09/15/21 09/15/21 Previous Rx's Medication Instructions Recorded ibuprofen 600 mg tablet 600 mg PO Q6H PRN PRN 04/28/17 meclizine 25 mg tablet 25 mg PO TID PRN dizziness #30 tabs 07/03/21 Allergies Allergy/AdvReac Type Severity Reaction Status Date / Time mirtazapine [From Remeron] AdvReac Severe Agitation Verified 09/15/21 12:21 fluoxetine HCl [From Prozac] AdvReac Agitation Verified 09/15/21 12:21 General Stated Complaint: GenMedical MELBA: 3 Review of Systems All systems reviewed & are unremarkable except as noted in HPI and below PFSH All Active Problems (Updated 09/15/21 @ 14:46 by ARIELA Duggan) Hypothyroidism (Chronic) Insomnia (Acute) Anorexia (Acute) Medical History (Updated 09/15/21 @ 14:46 by ARIELA Duggan) Anxiety with depression Off and On since age 15, typically situational. Onset after parents divorce, again with of grandfather. Previous use of Remeron, Prozac, Celexa Hypothyroidism Onset at age 9. Diagnosed with goiter Seen by Pediatric Computerized Table Cutter at [facility] [place]. Poor dentition Root canal 11/29 Surgical History (Updated 01/02/18 @ 14:35 by [facility]) Ligation of fallopian tube (07/18/17) Bilateral laparoscopic salpingectomy for sterilization. Normal pathology. Family History Mother No problems noted. Father FHx: Zzbhbvl-Nnrzo-Xdrmx disease Maternal Aunt No problems noted. Maternal Cousin No problems noted. Social History Smoking/Tobacco Use Status: Current every day Tobacco Type: cigarettes Smoking risk assessment performed?: Yes Alcohol Intake: never Drug use: Daily Substance use type: marijuana Do you feel safe in your relationship?: Yes Exam Const General: cooperative and comfortable HENMT Head: normal to inspection Mouth: oral mucosae normal Other: Moist mucous membranes Eyes Pupils: PERRL Chest Chest: normal inspection of the chest Resp Effort & Inspection: normal respiratory effort Auscultation: clear to auscultation bilaterally Cardio Rate: regular rate GI Inspection: normal to inspection Skin General skin exam: no rashes or lesions noted Neuro General: patient alert and patient oriented x3 Extrem General: normal to inspection Course Vital Signs Vital signs: Vital Signs Temperature 36.1 C L 09/15/21 12:14 Pulse 67 09/15/21 12:14 Respiratory Rate 16 09/15/21 12:14 Blood Pressure 131/90 09/15/21 12:14 Pulse Oximetry 98 09/15/21 12:14 Temperature 36.1 C L 09/15/21 12:14 Temperature Source Tympanic 09/15/21 12:14 Pulse 67 09/15/21 12:14 Respiratory Rate 16 09/15/21 12:14 Respiratory Effort 09/15/21 14:16 Respiratory Depth Normal 09/15/21 14:16 Respiratory Pattern Normal 09/15/21 14:16 Blood Pressure 131/90 09/15/21 12:14 Blood Pressure Position Sitting 09/15/21 12:14 Pulse Oximetry 98 09/15/21 12:14 Oxygen Delivery Method Room Air 09/15/21 12:14 Oxygen Flow Rate 0 09/15/21 12:14 Pain Level 0 09/15/21 12:14 Lab/Test Results Lab/Test Results: Laboratory Tests Range/Units 09/15/21 09/15/21 09/15/21 12:55 12:55 13:01 WBC (4.4-10.8) 10^3/uL 9.27 RBC (3.93-5.22) 10^6/uL 4.83 Hgb (11.2-15.7) g/dL 13.7 Hct (36.0-46.0) % 41.4 MCV (80-95) fL 86 MCH (27.0-33.0) pg 28.4 MCHC (32.0-36.0) % 33.1 RDW (11.7-14.6) % 14.1 Plt Count (130-400) 10^3/uL 353 MPV (8.0-11.0) fL 9.6 Immature Gran % 0.2 Neutrophils % 54.2 Lymphocytes % 36.1 Monocytes % 4.6 Eosinophils % 3.7 Basophils % 1.2 Nucleated RBC % (0.0-0.3) % 0.0 Absolute Neutrophils (1.2-6.7) 10^3/uL 5.02 Absolute Lymphocytes (1.2-3.4) 10^3/uL 3.35 Absolute Monocytes (0.1-0.8) 10^3/uL 0.43 Absolute Eosinophils (0.0-0.7) 10^3/uL 0.34 Absolute Basophils (0.0-0.2) 10^3/uL 0.11 Sodium Cancelled 138 Potassium Cancelled 3.7 Chloride Cancelled 104 Carbon Dioxide Cancelled 26.3 Anion Gap Cancelled 7.7 BUN Cancelled 6 L Creatinine Cancelled 0.7 Estimated GFR/1.73 m2 Cancelled >= 60.00 Glucose Cancelled 85 Calcium Cancelled 8.7 Total Bilirubin Cancelled 0.2 AST Cancelled 14 L ALT Cancelled 22 Alkaline Phosphatase Cancelled 47 Total Protein Cancelled 7.4 Albumin Cancelled 3.8 TSH Cancelled 21.52 H POC- Test(urine) Negative PAWSS Have you Been Recently Intoxicated or Drunk Within the Last 30 days?: Yes Have you Ever Experienced Previous Episodes of Alcohol Withdrawal?: No Have you ever Experienced Withdrawal Seizures?: No Have you ever Experienced Delirium Tremens(DT)s?: No Have you ever undergone Alcohol Rehabilitation Treatment (i.e, inpt ot outpatient treatment programs)?: No Have you ever Experienced Blackouts?: No Have you ever Combined Alcohol with other Downers within the last 90 days?: No Have you ever Combined Alcohol with any other Substance of Abuse during the last 90 days?: No Result: 1
[2021-09-15 14:53] VITALS: BP 139/93; PULSE 55; O2SAT 94
== END 2021-09-15 15:05 | disposition home or self-care (01) ==
PROVIDERS: Emergency Provider Physician Assistant; PCP Physician Assistant
DX: E03.9 Hypothyroidism, unspecified (principal); G47.00 Insomnia, unspecified; R63.0 Anorexia; Z32.02 Encounter for pregnancy test, result negative; F17.210 Nicotine dependence, cigarettes, uncomplicated
CPT/HCPCS: 36415; 80053; 81025; 96360; 99284; 84443; 85025

== ENCOUNTER 2021-11-25 08:51 | Emergency (ER) | payer MEDICAID, SELFPAY ==
[2021-11-25 08:55] VITALS: BP 119/78; PULSE 77; RESP 20; TEMP 36.7; O2SAT 100
--- NOTE | 2021-11-25 09:03 | W.ED.GENAD ---
Discharge Plan Disposition Patient Disposition: HOME Condition: Stable Discharge Details Clinical Impression: Sprain of right wrist Primary Care Provider: Yariel Ferreira ED Provider: Zoraida Valdovinos Home Meds and New Rx's Prescriptions: Continued clonazepam 0.5 mg tablet 1 mg PO BID Qty: 12 0RF buspirone 5 mg tablet 7.5 mg PO DAILY Label Comments: TAKE 1 TABLET BY MOUTH TWICE DAILY acetaminophen [Tylenol] 325 MG tablet 1,000 mg PO Q4H PRN PRN paroxetine HCl 20 mg tablet 20 tab PO DAILY Label Comments: TAKE ONE TABLET BY MOUTH EVERY DAY ibuprofen 600 MG tablet 600 mg PO Q6H PRN PRN0RF meclizine 25 mg tablet 25 mg PO TID PRN (Reason: dizziness) Qty: 30 0RF levothyroxine 125 MCG tablet 150 mcg PO DAILY@0600 Discharge Instructions Instructions: Wrist Sprain (ED) Additional Instructions: No evidence of broken bones at this time. I do suspect that you sprained your hand and wrist. Rest ice compression elevation. Wear the splint as needed for comfort. Please take Tylenol or Ibuprofen with food every 4-6 hours as needed for pain and swelling. Follow up with primary care provider in 3-5 days. Return to ED sooner if any worsening or concerns. Increase oral fluids. Referrals: Yariel Ferreira [Primary Care Provider] - Discharge Data Discharge Date/Time-TO BE ENTERED AT DEPARTURE: 11/25/21 11:12 Medical Decision Making X-rays ordered, within normal limits no fracture. Patient placed in universal wrist splint instructed on RICE procedures and follow-up care. This text was generated using entegra technologiesation system, please disregard any oddities of phrase or misspellings. HPI General Mode of arrival: ambulatory. Date/Time Provider Initiated Documentation: 11/25/21 08:53. Limitations to Documentation: no limitations. Information obtained by: patient and RN notes reviewed. HPI Narrative: 31-year-old female presents to the ER with chief complaint of right wrist and hand pain after punching a wall this morning. Has not taken any medications prior to arrival. There is some swelling to the radial aspect of her right wrist. Distal CMS intact. Related Data Home Medications Medication Instructions Recorded Confirmed ibuprofen 600 mg tablet 600 mg PO Q6H PRN PRN 04/28/17 11/25/21 acetaminophen 325 mg tablet 1,000 mg PO Q4H PRN PRN 12/14/17 11/25/21 (Tylenol) meclizine 25 mg tablet 25 mg PO TID PRN dizziness #30 tabs 07/03/21 11/25/21 levothyroxine 125 mcg tablet 150 mcg PO DAILY@0600 09/15/21 11/25/21 buspirone 5 mg tablet 7.5 mg PO DAILY 10/20/21 11/25/21 clonazepam 0.5 mg tablet 1 mg PO BID #12 tabs 10/20/21 11/25/21 paroxetine HCl 20 mg tablet 20 tab PO DAILY 11/25/21 11/25/21 Previous Rx's Medication Instructions Recorded ibuprofen 600 mg tablet 600 mg PO Q6H PRN PRN 04/28/17 meclizine 25 mg tablet 25 mg PO TID PRN dizziness #30 tabs 07/03/21 clonazepam 0.5 mg tablet 1 mg PO BID #12 tabs 10/20/21 Allergies Allergy/AdvReac Type Severity Reaction Status Date / Time mirtazapine [From Remeron] AdvReac Severe Agitation Verified 11/25/21 08:58 fluoxetine HCl [From Prozac] AdvReac Agitation Verified 11/25/21 08:58 General Stated Complaint: Orthopedic MELBA: 4 Review of Systems All systems reviewed & are unremarkable except as noted in HPI and below Musculoskeletal Musculoskeletal: Reports as per HPI, Reports arthralgias and Reports joint swelling PFSH All Active Problems (Updated 11/25/21 @ 11:08 by Zoraida Valdovinos NP) Sprain of right wrist (Acute) Medical History (Updated 11/25/21 @ 11:08 by Zoraida Valdovinos NP) Anxiety with depression Off and On since age 15, typically situational. Onset after parents divorce, again with of grandfather. Previous use of Remeron, Prozac, Celexa Hypothyroidism Onset at age 9. 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 Poor dentition Root canal 11/29 Surgical History Ligation of fallopian tube (07/18/17) Bilateral laparoscopic salpingectomy for sterilization. Normal pathology. Family History Mother No problems noted. Father FHx: Feeomav-Gdxbh-Ueogz disease Maternal Aunt No problems noted. Maternal Cousin No problems noted. Social History Smoking/Tobacco Use Status: Current every day Tobacco Type: cigarettes Smoking risk assessment performed?: Yes Alcohol Intake: never Drug use: Daily Substance use type: marijuana Do you feel safe at home: Yes Do you feel safe in your relationship?: Yes Exam Extrem Right upper extremity: normal capillary refill, wrist Details: tenderness, swelling Location: of the dorsal wrist and radial pulse present and hand Course Vital Signs Vital signs: Vital Signs Temperature 36.7 C 11/25/21 08:55 Pulse 77 11/25/21 08:55 Respiratory Rate 20 11/25/21 08:55 Blood Pressure 119/78 11/25/21 08:55 Pulse Oximetry 100 11/25/21 08:55 Temperature 36.7 C 11/25/21 08:55 Temperature Source Temporal Artery Scan 11/25/21 08:55 Pulse 77 11/25/21 08:55 Respiratory Rate 20 11/25/21 08:55 Respiratory Effort 11/25/21 08:59 Blood Pressure 119/78 11/25/21 08:55 Blood Pressure Position Sitting 11/25/21 08:55 Pulse Oximetry 100 11/25/21 08:55 Oxygen Delivery Method Room Air 11/25/21 08:55 Oxygen Flow Rate 0 11/25/21 08:55 Pain Level 8 11/25/21 09:01
--- NOTE | 2021-11-25 09:18 | DI.RAD_ITS ---
Exam(s) XR WRIST RT COMPLETE EXAM: XR WRIST RT COMPLETE CLINICAL HISTORY: R/O Fracture. TECHNIQUE: 2D digital imaging was performed of the right wrist. Three views were obtained. PA, lat eral and oblique views were obtained. COMPARISON: No exams were available for comparison FINDINGS: BONES: No acute fracture is present. No bony destructive lesion is seen. JOINTS: The carpal bones are normally aligned. SOFT TISSUE: Normal. IMPRESSION: Unremarkable radiographs of the right wrist. DATA REPOSITORY: RADIATION DOSE DELIVERED:
--- NOTE | 2021-11-25 09:18 | DI.RAD_ITS ---
Exam(s) XR HAND RT COMPLETE EXAM: XR HAND RT COMPLETE CLINICAL HISTORY: Injury, R/O Fracture. TECHNIQUE: 2D digital imaging was performed of the right hand. Three images were obtained. AP, late ral and oblique views were obtained. COMPARISON: No exams were available for comparison FINDINGS: BONES: No acute fracture is present. No bony destructive lesion is seen. JOINTS: No dislocation present. SOFT TISSUE: Normal. IMPRESSION: Unremarkable radiographs of the right hand. DATA REPOSITORY: RADIATION DOSE DELIVERED:
[2021-11-25] MEDS: Ibuprofen 600 MG TAB PO (09:23)
== END 2021-11-25 11:12 | disposition home or self-care (01) ==
PROVIDERS: Emergency Provider Registered Nurse Emergency; PCP Physician Assistant
DX: S63.501A Unspecified sprain of right wrist, initial encounter (principal); F17.210 Nicotine dependence, cigarettes, uncomplicated; W22.01XA Walked into wall, initial encounter
CPT/HCPCS: 29125; 99283; 73110; 73130; 99282

== ENCOUNTER 2021-12-02 14:23 | Emergency (ER) | payer MEDICAID, SELFPAY ==
[2021-12-02 14:28] VITALS: BP 110/69; PULSE 76; RESP 18; TEMP 36.8; O2SAT 100
--- NOTE | 2021-12-02 16:15 | ED.GENADUL_ITS ---
Discharge Plan Disposition Patient Disposition: HOME Condition: Stable Discharge Details Clinical Impression: Left rib fracture, Pain Primary Care Provider: Yariel Ferreira ED Provider: Zoraida Valdovinos Home Meds and New Rx's Prescriptions: New oxycodone 5 mg tablet 5 mg PO Q8H PRN (Reason: pain) Qty: 3 0RF No Action clonazepam 0.5 mg tablet 1 mg PO BID Qty: 12 0RF buspirone 5 mg tablet 7.5 mg PO DAILY Label Comments: TAKE 1 TABLET BY MOUTH TWICE DAILY acetaminophen [Tylenol] 325 MG tablet 1,000 mg PO Q4H PRN PRN paroxetine HCl 20 mg tablet 20 tab PO DAILY Label Comments: TAKE ONE TABLET BY MOUTH EVERY DAY ibuprofen 600 MG tablet 600 mg PO Q6H PRN PRN0RF meclizine 25 mg tablet 25 mg PO TID PRN (Reason: dizziness) Qty: 30 0RF levothyroxine 125 MCG tablet 150 mcg PO DAILY@0600 Discharge Instructions Instructions: Rib Fracture (ED) Additional Instructions: Please take the oxycodone 1 tablet every 4-6 hours as needed for moderate to severe pain. You may take this with Tylenol and ibuprofen. You may also try lidocaine patches which you can obtain [id number] 1 a day. Hold a pillow to the side of your chest and guard with any movement, coughing or deep breathing. Follow up with primary care provider in 3-5 days. Return to ED sooner if any worsening or concerns. Increase oral fluids. Please take Tylenol or Ibuprofen with food every 4-6 hours as needed for pain and swelling. Medical Decision Making Patient is declining repeat chest x-ray at this time. No increased shortness of breath or respiratory distress. We will give patient oxycodone 5 mg here and send patient home with 4 tablets and apply a lidocaine patch. HPI General Mode of arrival: ambulatory . Date/Time Provider Initiated Documentation: 12/02/21 14:58 . Limitations to Documentation: no limitations . Information obtained by: patient, RN notes reviewed and old records reviewed . HPI Narrative: 31-year-old female presents to the ER with chief complaint of left-sided rib pain. Patient was seen 3 days ago at [facility] and was diagnosed with a single rib fracture on the left she reports that she was instructed to take Tylenol and ibuprofen which she has been doing she reports poor pain control. She denies any new shortness of breath new pain. She is declining a repeat x- ray at this time. She denies any productive cough. She does have lung sounds bilaterally to auscultation. Past medical history includes anxiety and depression, hypothyroidism and poor dentition. Related Data Home Medications Medication Instructions Recorded Confirmed ibuprofen 600 mg tablet 600 mg PO Q6H PRN PRN 04/28/17 11/25/21 acetaminophen 325 mg tablet 1,000 mg PO Q4H PRN PRN 12/14/17 11/25/21 (Tylenol) meclizine 25 mg tablet 25 mg PO TID PRN dizziness #30 tabs 07/03/21 11/25/21 levothyroxine 125 mcg tablet 150 mcg PO DAILY@0600 09/15/21 11/25/21 buspirone 5 mg tablet 7.5 mg PO DAILY 10/20/21 11/25/21 clonazepam 0.5 mg tablet 1 mg PO BID #12 tabs 10/20/21 11/25/21 paroxetine HCl 20 mg tablet 20 tab PO DAILY 11/25/21 11/25/21 oxycodone 5 mg tablet 5 mg PO Q8H PRN pain #3 tabs 12/02/21 Previous Rx's Medication Instructions Recorded ibuprofen 600 mg tablet 600 mg PO Q6H PRN PRN 04/28/17 meclizine 25 mg tablet 25 mg PO TID PRN dizziness #30 tabs 07/03/21 clonazepam 0.5 mg tablet 1 mg PO BID #12 tabs 10/20/21 oxycodone 5 mg tablet 5 mg PO Q8H PRN pain #3 tabs 12/02/21 Allergies Allergy/AdvReac Type Severity Reaction Status Date / Time mirtazapine [From Remeron] AdvReac Severe Agitation Verified 11/25/21 08:58 fluoxetine HCl [From Prozac] AdvReac Agitation Verified 11/25/21 08:58 General Stated Complaint: Chest/Rib MELBA: 3 Review of Systems All systems reviewed & are unremarkable except as noted in HPI and below Cardiovascular Cardiovascular: Reports chest pain (Left side, contusions noted,) PFSH All Active Problems (Updated 12/02/21 @ 16:21 by Zoraida Valdovinos NP) Sprain of right wrist (Acute) Left rib fracture (Acute) Pain (Acute) Medical History (Updated 12/02/21 @ 16:21 by Zoraida Valdovinos NP) Anxiety with depression Off and On since age 15, typically situational. Onset after parents divorce, again with of grandfather. Previous use of Remeron, Prozac, Celexa Hypothyroidism Onset at age 9. Diagnosed with [place]iter [place] Pediatric Business Mgr [place] [facility] [place] Poor dentition Root canal 11/29 Surgical History Ligation of fallopian tube (07/18/17) Bilateral laparoscopic salpingectomy for sterilization. Normal pathology. Family History Mother No problems noted. Father FHx: Rscotuo-Zzmyr-Pxfiw disease Maternal Aunt No problems noted. Maternal Cousin No problems noted. Social History Smoking/Tobacco Use Status: Current every day Tobacco Type: cigarettes Smoking risk assessment performed?: Yes Alcohol Intake: never Drug use: Daily Substance use type: marijuana Do you feel safe at home: Yes Do you feel safe in your relationship?: Yes Exam Narrative Exam Narrative: Constitutional: Alert and oriented x3. Appears stated age. Normal body habitus. Head: Normocephalic, no trauma. Chest: RRR, Normal S1, S2, distal pulses intact. Contusions noted to left lateral chest wall that are appear to be healing. Lung sounds are equal bilaterally. Resp: Lungs clear to auscultation bilaterally, no wheezes, rales, or rhonchi. Abdomen: Soft, non-distended, Normoactive bowel sounds all 4 quads. Musculoskeletal: Normal gait, 5/5 strength to all four extremities. Skin: No suspicious rashes or lesions. Capillary refill less than 2 sec. Neurologic: Cranial nerves II-XII intact. Alert and oriented x 3. Motor: No deficits noted. Sensory: Intact bilaterally all 4 extremities. Reflexes: DTR's intact bilaterally.. Course Vital Signs Vital signs: Vital Signs Temperature 36.8 C 12/02/21 14:28 Pulse 76 12/02/21 14:28 Respiratory Rate 18 12/02/21 14:28 Blood Pressure 110/69 12/02/21 14:28 Pulse Oximetry 100 09/16/22 14:28 Temperature 36.8 C 12/02/21 14:28 Temperature Source Temporal Artery Scan 12/02/21 14:28 Pulse 76 12/02/21 14:28 Respiratory Rate 18 12/02/21 14:28 Blood Pressure 110/69 12/02/21 14:28 Blood Pressure Position Sitting 12/02/21 14:28 Pulse Oximetry 100 12/02/21 14:28 Oxygen Delivery Method Room Air 12/02/21 14:28 Oxygen Flow Rate 0 12/02/21 14:28
[2021-12-02] MEDS: Lidocaine 5% Patch 1 PATCH TP (16:19)
[2021-12-02] MEDS: oxyCODONE 5 MG TAB PO (16:19)
== END 2021-12-02 16:49 | disposition home or self-care (01) ==
PROVIDERS: Emergency Provider Registered Nurse Emergency; PCP Physician Assistant
DX: S22.32XA Fracture of one rib, left side, initial encounter for closed fracture (principal); F17.210 Nicotine dependence, cigarettes, uncomplicated; X58.XXXA Exposure to other specified factors, initial encounter
CPT/HCPCS: 99283; 99284

== ENCOUNTER 2021-12-15 08:28 | Emergency (ER) | payer MEDICAID, SELFPAY ==
[2021-12-15 08:31] VITALS: BP 161/97; PULSE 139; RESP 20; TEMP 36.8; O2SAT 97
[2021-12-15 08:53] LABS: Bilirubin Moderate (Negative); Blood Small (Negative); Clarity Clear (Clear); Glucose Negative (Negative); Ketones 80 mg/dL (Negative); Leukocyte Esterase Negative (Negative); Nitrite Negative (Negative); Urobilinogen 0.2 EU/dL (Up TO 0.2)
[2021-12-15 08:59] LABS: Bacteria Few HPF (Negative); Casts Negative LPF (Negative); Crystals Negative HPF (Negative); Epithelial Cells Many HPF (Negative); Mucus Moderate (Negative); WBC 0-2 HPF (0-5)
[2021-12-15 09:00] LABS: C & S Indicated? No/Sq. Contamination
[2021-12-15] MEDS: LORazepam 1 MG TAB PO (09:39)
[2021-12-15] MEDS: Lactated Ringers 1,000 ML 1000 ML IV (09:50)
[2021-12-15 09:54] LABS: Abs Immature Grans 0.04 10^3/uL (0.0-0.06); Absolute Basophil Count 0.13 10^3/uL (0.0-0.2); Absolute Eosinophil Count 0.14 10^3/uL (0.0-0.7); Absolute Monocyte Count 0.81 10^3/uL (0.1-0.8); Absolute Neutrophil Count 11.02 10^3/uL (1.2-6.7); Basophils % 0.9; HCT 39.7 % (36.0-46.0); HGB 13.4 g/dL (11.2-15.7); Immature Grans % 0.3; Lymphocytes % 14.7; MCH 28.2 pg (27.0-33.0); MCHC 33.8 % (32.0-36.0); MCV 84 fL (80-95); MPV 9.2 fL (8.0-11.0); Monocytes % 5.7; Neutrophils % 77.4; Platelet Count 369 10^3/uL (130-400); RBC 4.75 10^6/uL (3.93-5.22); RDW-SD 43.1 fL; WBC 14.24 10^3/uL (4.4-10.8)
[2021-12-15 09:55] LABS: Absolute Lymphocyte Count 2.09 10^3/uL (1.2-3.4)
--- NOTE | 2021-12-15 10:03 | W.ED.GENAD ---
Discharge Plan Disposition Patient Disposition: HOME Condition: Stable Discharge Details Clinical Impression: Depression, Anxiety, Acute nausea with nonbilious vomiting Primary Care Provider: Yariel Ferreira ED Provider: Vipin Sena Home Meds and New Rx's Prescriptions: Continued clonazepam 0.5 mg tablet 1 mg PO BID Qty: 12 0RF buspirone 5 mg tablet 7.5 mg PO DAILY Label Comments: TAKE 1 TABLET BY MOUTH TWICE DAILY acetaminophen [Tylenol] 325 MG tablet 1,000 mg PO Q4H PRN PRN paroxetine HCl 20 mg tablet 20 tab PO DAILY Label Comments: TAKE ONE TABLET BY MOUTH EVERY DAY ibuprofen 600 MG tablet 600 mg PO Q6H PRN PRN0RF meclizine 25 mg tablet 25 mg PO TID PRN (Reason: dizziness) Qty: 30 0RF levothyroxine 125 MCG tablet 150 mcg PO DAILY@0600 Discharge Instructions Instructions: Depression (ED), Anxiety (ED) Additional Instructions: Please follow-up with [facility]. Please follow the safety plan that was established with crisis screener today. Please return to the emergency department immediately should you have any worsening or new concerning symptoms or active thoughts of harming yourself. [facility]Outside] Yariel Ferreira [Primary Care Provider] - Discharge Data Discharge Date/Time-TO BE ENTERED AT DEPARTURE: 12/15/21 15:37 Medical Decision Making 1015 --31-year-old female here with severe anxiety and emotional distress related to social stressors including ongoing divorce, now with nausea, vomiting and loose stool, not eating over the past few days. Patient is tachycardic and appears dehydrated. Abdominal exam is benign. She is quite anxious and upset. I will give Ativan 1 mg p.o. for anxiety. Patient has noted passive suicidality to care management here. She denies active suicidality. I have called [facility] for crisis evaluation. Consider electrolyte normalities. Plan to check labs. I will give IV fluid bolus for dehydration. 1234 --patient was seen by [facility] crisis screener. Patient deemed not at immediate risk of harming self. She is depressed and seeking voluntary psychiatric treatment. Plan established with crisis screener and patient and her family. She has a safety plan for discharge. Patient notes she is feeling better after benzodiazepine. I will discharge with outpatient follow-up as outlined by crisis screener. Usual customary discharge instructions were reviewed with the patient. She was encouraged to return immediately for any worsening or new concerning symptoms. HPI General Mode of arrival: ambulatory. Date/Time Provider Initiated Documentation: 12/15/21 08:56. Limitations to Documentation: no limitations. Information obtained by: patient. HPI Narrative: 31-year-old female here with chief complaint of dehydration. Patient notes she is psychologically overwhelmed. She notes she is going through a divorce and extremely stressed. She has severe nausea and loose stool. Anxiety is worsening symptoms. She notes that she is not eating. She is not actively suicidal but notes that she just wants it all to end. Patient denies physical trauma. Related Data Home Medications Medication Instructions Recorded Confirmed ibuprofen 600 mg tablet 600 mg PO Q6H PRN PRN 04/28/17 12/15/21 acetaminophen 325 mg tablet 1,000 mg PO Q4H PRN PRN 12/14/17 12/15/21 (Tylenol) meclizine 25 mg tablet 25 mg PO TID PRN dizziness #30 tabs 07/03/21 12/15/21 levothyroxine 125 mcg tablet 150 mcg PO DAILY@0600 09/15/21 12/15/21 buspirone 5 mg tablet 7.5 mg PO DAILY 10/20/21 12/15/21 clonazepam 0.5 mg tablet 1 mg PO BID #12 tabs 10/20/21 12/15/21 paroxetine HCl 20 mg tablet 20 tab PO DAILY 11/25/21 12/15/21 Previous Rx's Medication Instructions Recorded ibuprofen 600 mg tablet 600 mg PO Q6H PRN PRN 04/28/17 meclizine 25 mg tablet 25 mg PO TID PRN dizziness #30 tabs 07/03/21 clonazepam 0.5 mg tablet 1 mg PO BID #12 tabs 10/20/21 Allergies Allergy/AdvReac Type Severity Reaction Status Date / Time mirtazapine [From Remeron] AdvReac Severe Agitation Verified 12/15/21 08:39 fluoxetine HCl [From Prozac] AdvReac Agitation Verified 12/15/21 08:39 General Stated Complaint: Nausea/Vomit/Diar MELBA: 3 Review of Systems All systems reviewed & are unremarkable except as noted in HPI and below Constitutional Constitutional: Denies fever(s) Gastrointestinal Gastrointestinal: Reports as per HPI Psychiatric Psychiatric: Reports as per HPI [facility] All Active Problems (Updated 12/15/21 @ 12:38 by Vipin Sena MD) Sprain of right wrist (Acute) Left rib fracture (Acute) Pain (Acute) Depression (Chronic) Anxiety (Chronic) Acute nausea with nonbilious vomiting (Acute) Medical History (Updated 12/15/21 @ 12:38 by Vipin Sena MD) Anxiety with depression Off and On since age 15, typically situational. Onset after parents divorce, again with of grandfather. Previous use of Remeron, Prozac, Celexa Hypothyroidism Onset at age 9. Diagnosed with goiter Seen by Pediatric [facility] at [facility]. Poor dentition Root canal 11/29 Surgical History Ligation of fallopian tube (07/18/17) Bilateral laparoscopic salpingectomy for sterilization. Normal pathology. Family History Mother No problems noted. Father FHx: Kpoutjc-Hlkfi-Swmkm disease Maternal Aunt No problems noted. Maternal Cousin No problems noted. Social History Smoking/Tobacco Use Status: Current every day Tobacco Type: cigarettes Smoking risk assessment performed?: Yes Alcohol Intake: current Alcohol Intake frequency: holidays/special occasions only Drug use: Daily Substance use type: marijuana Do you feel safe at home: Yes Do you feel safe in your relationship?: Yes Exam Const General: in distress and anxious Orientation: alert and oriented x3 HENPR Mouth: mucous membranes dry Eyes Conjunctivae: normal conjunctivae Sclera: normal sclerae EOM: EOM intact bilaterally Neck Neck: trachea midline and supple Resp Auscultation: clear to auscultation bilaterally, no rales, no rhonchi and no wheezes Cardio Rate: tachycardic Rhythm: regular rhythm GI Palpation: soft, not firm, no guarding, no masses, not rigid and nontender Skin General skin exam: no rashes or lesions noted Neuro General: patient alert, patient awake, patient oriented x3 and tone normal Extrem General: no edema Psych Mental Status: mental status grossly normal Course Vital Signs Vital signs: Vital Signs Temperature 36.8 C 12/15/21 08:31 Pulse 139 H 12/15/21 08:31 Respiratory Rate 20 12/15/21 08:31 Blood Pressure 161/97 H 12/15/21 08:31 Pulse Oximetry 97 12/15/21 08:31 Temperature 36.8 C 12/15/21 08:31 Pulse 139 H 12/15/21 08:31 Respiratory Rate 20 12/15/21 08:31 Respiratory Effort Non-Labored 12/15/21 08:36 Blood Pressure 161/97 H 12/15/21 08:31 Blood Pressure Position Sitting 12/15/21 08:31 Pulse Oximetry 97 12/15/21 08:31 Oxygen Delivery Method Room Air 12/15/21 08:31 Oxygen Flow Rate 0 12/15/21 08:31 Pain Level 6 12/15/21 08:31 Comment 12/15/21 08:31 Lab/Test Results Lab/Test Results: Laboratory Tests Range/Units 12/15/21 12/15/21 08:47 09:40 WBC (4.4-10.8) 10^3/uL 14.24 H RBC (3.93-5.22) 10^6/uL 4.75 Hgb (11.2-15.7) g/dL 13.4 Hct (36.0-46.0) % 39.7 MCV (80-95) fL 84 MCH (27.0-33.0) pg 28.2 MCHC (32.0-36.0) % 33.8 RDW (11.7-14.6) % 14.0 Plt Count (130-400) 10^3/uL 369 MPV (8.0-11.0) fL 9.2 Immature Gran % 0.3 Neutrophils % 77.4 Lymphocytes % 14.7 Monocytes % 5.7 Eosinophils % 1.0 Basophils % 0.9 Nucleated RBC % (0.0-0.3) % 0.0 Absolute Neutrophils (1.2-6.7) 10^3/uL 11.02 H Absolute Lymphocytes (1.2-3.4) 10^3/uL 2.09 Absolute Monocytes (0.1-0.8) 10^3/uL 0.81 H Absolute Eosinophils (0.0-0.7) 10^3/uL 0.14 Absolute Basophils (0.0-0.2) 10^3/uL 0.13 Urine Color (Yellow) Yellow Urine Clarity (Clear) Clear Urine pH (5-8) 6.0 Ur Specific [place] (1.005-1.025) 1.020 Urine Protein (Negative) mg/dL Trace H Urine Ketones (Negative) mg/dL 80 H Urine Blood (Negative) Small H Urine Nitrite (Negative) Negative Urine Bilirubin (Negative) Moderate H Urine Urobilinogen (Up TO 0.2) EU/dL 0.2 Ur Leukocyte Esterase (Negative) Negative Urine RBC (0-2) HPF 3-5 H Urine WBC (0-5) HPF 0-2 Ur Epithelial Cells (Negative) HPF Many Urine Crystals (Negative) HPF Negative Urine Bacteria (Negative) HPF Few Urine Casts (Negative) LPF Negative Urine Mucus (Negative) Moderate Ur Culture Indicated? No/Sq. Contamination Urine Glucose (Negative) mg/dL Negative POC- Test(urine) Negative
[2021-12-15 10:04] LABS: ALT 49 U/L (14-59); AST 27 U/L (15-37); Albumin 4.1 g/dL (3.4-5.0); Alkaline Phosphatase 61 U/L (46-116); Anion Gap 9.1 mmol/L (3-11); BUN 6 mg/dL (7-18); Bilirubin, Total 0.5 mg/dL (0.2-1.0); CO2 29.9 mmol/L (21.0-32.0); CREATININE 0.6 mg/dL (0.55-1.02); Calcium 9.5 mg/dL (8.5-10.1); Chloride 98 mmol/L (98-107); Estimated GFR 122.99 (mL/min/1.73m2); Glucose 100 mg/dL (74-106); Magnesium 1.8 mg/dL (1.8-2.4); Potassium 3.5 mmol/L (3.5-5.1); Sodium 137 mmol/L (136-145); Total Protein 8.2 g/dL (6.4-8.2)
--- NOTE | 2021-12-15 10:07 | NUR.NOTE ---
Nursing Note: Had care management come talk with patient, patient is denying any help; patient states she just wants this all to end, complex care nurse practitioner suggests that [facility] speak with patient to rule out suicidal ideation. aware.
[2021-12-15 10:15] LABS: TSH (W/Ref FT4) 0.06 uIU/mL (0.36-3.74)
[2021-12-15 10:45] LABS: FREE T4 1.61 ng/dL (0.76-1.46)
[2021-12-15 10:58] LABS: Bilirubin Negative (Negative); Blood Small (Negative); Clarity Clear (Clear); Glucose Negative (Negative); Ketones 80 mg/dL (Negative); Leukocyte Esterase Negative (Negative); Nitrite Negative (Negative); Specific Gravity 1.015 (1.005-1.025); Urobilinogen 0.2 EU/dL (Up TO 0.2)
[2021-12-15 11:03] LABS: Bacteria Rare HPF (Negative); Epithelial Cells Moderate HPF (Negative); WBC 0-2 HPF (0-5)
[2021-12-15 11:04] LABS: C & S Indicated? No; Casts Negative LPF (Negative); Crystals Negative HPF (Negative); Mucus Trace (Negative)
--- NOTE | 2021-12-15 13:12 | PDOC.MHPN2 ---
Date of service: 12/15/21 Time of Service: 09:00 Mental Health Emergency Note Release HS release signed:: No Reason for Visit In the last 2 weeks has the pt presented for ES prior to today?: Unknown Impression This typewriters functional tester recived incoming call from Dr. Talha Sena informing MH there was a patient in ED. Client presented to [facility] for panic atttack and per client's reports having a mental break down. Per Nathen's report client is an active client of [facility] and receives therapy services. Per Joao reports client reports she has an upcoming appointment scheduled for therapy the upcoming week of 12/19. Nathen reports client is not currently endorsing SI/HI and does not feel client needs to be screened at this time. Nathen is requesting for ES to outreach to client and confirm status of upcoming therapy appointment. Client's contact # was provided ([phone]. Plan/Disposition Recommended Disposition: [facility] Services [facility] Services: Therapy (attend upcoming therapy appointment). Plan: Client is to be discharged/follow-up call from is to be completed. Reports/communication Outcome discussed with: ED/Personnel (Dr. Talha Sena)
[2021-12-15 15:50] VITALS: BP 161/97; PULSE 139; RESP 20; TEMP 36.8; O2SAT 97
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
== END 2021-12-15 15:37 | disposition home or self-care (01) ==
PROVIDERS: Emergency Provider Student in an Organized Health Care Education/Training Program; PCP Physician Assistant
DX: F41.9 Anxiety disorder, unspecified (principal); F32.A Depression, unspecified; R11.2 Nausea with vomiting, unspecified; R00.0 Tachycardia, unspecified; F17.210 Nicotine dependence, cigarettes, uncomplicated
CPT/HCPCS: 36415; 80053; 81025; 96360; 99284; 81003; 81015; 83735; 84439; 84443; 85025

== ENCOUNTER 2022-01-23 06:58 | Emergency (ER) | payer MEDICAID, SELFPAY ==
[2022-01-23 07:04] VITALS: BP 145/85; PULSE 91; RESP 18; TEMP 36.6; O2SAT 99
--- NOTE | 2022-01-23 07:23 | ED.GENADUL_ITS ---
Discharge Plan Disposition Patient Disposition: HOME Condition: Stable Discharge Details Clinical Impression: Suicidal thoughts, Depression Primary Care Provider: Yariel Ferreira ED Provider: Maribel Sena Home Meds and New Rx's Prescriptions: No Action clonazepam 0.5 mg tablet 1 mg PO BID Qty: 12 0RF buspirone 5 mg tablet 7.5 mg PO DAILY Label Comments: TAKE 1 TABLET BY MOUTH TWICE DAILY acetaminophen [Tylenol] 325 MG tablet 1,000 mg PO Q4H PRN PRN paroxetine HCl 20 mg tablet 20 tab PO DAILY Label Comments: TAKE ONE TABLET BY MOUTH EVERY DAY ibuprofen 600 MG tablet 600 mg PO Q6H PRN PRN0RF meclizine 25 mg tablet 25 mg PO TID PRN (Reason: dizziness) Qty: 30 0RF levothyroxine 125 MCG tablet 150 mcg PO DAILY@0600 Discharge Instructions Instructions: Depression (ED) Additional Instructions: Please return immediately to the emergency department if you develop any new or worsening symptoms, if your condition does not improve as expected, or if you become otherwise concerned. It is extremely important that you call soon as possible to make an appointment to be seen in follow-up for this visit by your primary care doctor. Stand Alone Forms: Work Release Referrals: Yariel Ferreira [Primary Care Provider] - Discharge Data Discharge Date/Time-TO BE ENTERED AT DEPARTURE: 01/23/22 09:06 Medical Decision Making 31-year-old female with a history of anxiety and depression presents for increasing depression and thoughts of suicide for the past few weeks, worse today. She has a plan to overdose on her medications. No previous history of suicide attempts. Her blood pressure and heart rate are mildly elevated. Patient medically cleared per [facility] medical clearance form. Case discussed with Althea from [facility] services and she will assess patient. Case endorsed to Dr. Maribel Sena to follow-up with mental health regarding plan. HPI General Mode of arrival: ambulatory . Date/Time Provider Initiated Documentation: 01/23/22 07:01 . Limitations to Documentation: no limitations . Information obtained by: patient . HPI Narrative: Patient is a 31-year-old female with a history of depression and anxiety prese nts for increasing depression and thoughts of suicide for the past few weeks, worse today. Patient states she has thoughts of overdosing on her medication. Patient states she has not taken any of her medications today. She denies any previous history of suicide attempts. She states she has been having ongoing issues with her ex and this is caused increased stress and depression. She states she is living with her boyfriend and she feels safe. She states her children are at school. She states she smokes marijuana but denies any other alcohol or drug use. She denies any hallucinations. Patient states she has had a safety plan contracted 3 times within the last few months for her depression. Related Data Home Medications Medication Instructions Recorded Confirmed ibuprofen 600 mg tablet 600 mg PO Q6H PRN PRN 04/28/17 01/23/22 acetaminophen 325 mg tablet 1,000 mg PO Q4H PRN PRN 12/14/17 01/23/22 (Tylenol) meclizine 25 mg tablet 25 mg PO TID PRN dizziness #30 tabs 07/03/21 01/23/22 levothyroxine 125 mcg tablet 150 mcg PO DAILY@0600 09/15/21 01/23/22 buspirone 5 mg tablet 7.5 mg PO DAILY 10/20/21 01/23/22 clonazepam 0.5 mg tablet 1 mg PO BID #12 tabs 10/20/21 01/23/22 paroxetine HCl 20 mg tablet 20 tab PO DAILY 11/25/21 01/23/22 Previous Rx's Medication Instructions Recorded ibuprofen 600 mg tablet 600 mg PO Q6H PRN PRN 04/28/17 meclizine 25 mg tablet 25 mg PO TID PRN dizziness #30 tabs 07/03/21 clonazepam 0.5 mg tablet 1 mg PO BID #12 tabs 10/20/21 Allergies Allergy/AdvReac Type Severity Reaction Status Date / Time mirtazapine [From Remeron] AdvReac Severe Agitation Verified 01/23/22 07:08 fluoxetine HCl [From Prozac] AdvReac Agitation Verified 01/23/22 07:08 General Stated Complaint: PsychEval MELBA: 2 Review of Systems All systems reviewed & are unremarkable except as noted in HPI and below Constitutional Constitutional: Reports as per HPI, Denies chills and Denies fever(s) Eyes Eyes: Denies blurry vision ENT Ears, Nose, Mouth, and Throat: Denies dizziness, Denies sore throat and Denies throat swelling Cardiovascular Cardiovascular: Denies chest pain and Denies dyspnea Respiratory Respiratory: Denies cough and Denies dyspnea Gastrointestinal Gastrointestinal: Denies abdominal pain, Denies diarrhea and Denies vomiting Genitourinary Genitourinary: Denies hematuria and Denies dysuria Musculoskeletal Musculoskeletal: Denies back pain and Denies numbness Integumentary/Breasts Skin/Breast: Denies lesions and Denies rash Neurologic Neurologic: Denies dizziness, Denies localized weakness and Denies numbness Psychiatric Psychiatric: Reports suicidal ideation Allergic/Immunologic Allergic/Immunologic: Denies throat swelling PFSH All Active Problems (Updated 01/23/22 @ 07:28 by Precious Paiz DO) Suicidal thoughts (Acute) Depression (Chronic) Medical History (Updated 01/23/22 @ 07:28 by Precious Paiz DO) Anxiety with depression Off and On since age 15, typically situational. Onset after parents divorce, again with of grandfather. Previous use of Remeron, Prozac, Celexa Hypothyroidism Onset at age 9. Diagnosed with goiter Seen by Pediatric Periodontal Assistant at [facility] [place]. Poor dentition Root canal 11/29 Surgical History Ligation of fallopian tube (07/18/17) Bilateral laparoscopic salpingectomy for sterilization. Normal pathology. Family History Mother No problems noted. Father FHx: Jaijsiu-Ndidz-Oyceu disease Maternal Aunt No problems noted. Maternal Cousin No problems noted. Social History Smoking/Tobacco Use Status: Current every day Tobacco Type: cigarettes Smoking risk assessment performed?: Yes Alcohol Intake: current Alcohol Intake frequency: holidays/special occasions only Drug use: Daily Substance use type: marijuana Do you feel safe at home: Yes Do you feel safe in your relationship?: Yes Exam Const General: cooperative, anxious and other (tearful) Orientation: alert, awake and oriented x3 HENMT Head: normal to inspection Mouth: oral mucosae normal Eyes General: appearance normal, both eyes and all related structures Neck Neck: normal visual inspection Resp Effort & Inspection: normal respiratory effort and able to speak in complete sentences Auscultation: clear to auscultation bilaterally Cardio Rate: regular rate Rhythm: regular rhythm Skin General skin exam: no rashes or lesions noted Neuro General: patient alert, patient awake and patient oriented x3 Motor: muscle tone normal throughout Extrem General: normal to inspection and full ROM Psych Appearance: grossly normal Affect: normal affect Course Vital Signs Vital signs: Vital Signs Temperature 97.9 F 01/23/22 07:04 Pulse 91 H 01/23/22 07:04 Respiratory Rate 18 01/23/22 07:04 Blood Pressure 145/85 H 01/23/22 07:04 Pulse Oximetry 99 01/23/22 07:04 Temperature 97.9 F 01/23/22 07:04 Temperature Source Tympanic 01/23/22 07:04 Pulse 91 H 01/23/22 07:04 Respiratory Rate 18 01/23/22 07:04 Respiratory Effort Non-Labored 01/23/22 07:05 Blood Pressure 145/85 H 01/23/22 07:04 Blood Pressure Position Sitting 01/23/22 07:04 Pulse Oximetry 99 01/23/22 07:04 Oxygen Delivery Method Room Air 01/23/22 07:04 Oxygen Flow Rate 0 01/23/22 07:04 Pain Level 0 01/23/22 07:04 Sign Out Sign Out Data: Sign Out Comment: Depressed and suicidal. Plan to overdose on pills. Medically cleared. Awaiting to speak with mental health. Last updated by Precious Paiz DO at 01/23/22 07:42
--- NOTE | 2022-01-23 08:46 | ED.PROG_ITS ---
Date of service: 01/23/22 Time of Service: 07:30 Medical Decision Making Trinity Morse was signed out to me at time of shift change by Dr. Paiz with mental health evaluation pending, discharge with safety planning appropriate if also recommended by mental health. Mental health met with patient. I discussed patient with mental health, who stated that discharge is appropriate, plan for checking him and possibly care bed if patient elects to do so, mental health states that patient was unsure whether she wanted to go to care better not at this time. I discussed the plan with patient. She states that check-in's have helped her in the past and she feels this is a safe plan for her. Patient states that she does not have a plan to harm herself and feels safe going home with checking for mental health. She states that she will think about whether or not she feels that she needs a care bed. Patient reports that she will be staying with her boyfriend who will take care of her. She states that she does not have access to firearms. I had a discussion with Patient regarding return to emergency d epartment precautions with plan for immediate return if any worsening, home care, and importance of outpatient follow-up. Pt verbalizes understanding of the plan and is amenable. Patient discharged to home with clear plan for outpatient follow-up. All questions were answered. Disposition decision was made weighing the risks and benefits of hospitalization versus outpatient treatment, the risk for further decompensation, and the patient's wishes. Medical Records Medical records reviewed: Yes I reviewed the patient's medical records. Sign Out Sign Out Data: Sign Out Comment: Depressed and suicidal. Plan to overdose on pills. Medically cleared. Awaiting to speak with mental health. Last updated by Precious Paiz DO at 01/23/22 07:42 Discharge Plan Disposition Patient Disposition: HOME Condition: Stable Discharge Details Clinical Impression: Suicidal thoughts, Depression Primary Care Provider: Yariel Ferreira ED Provider: Maribel Sena Home Meds and New Rx's Prescriptions: No Action clonazepam 0.5 mg tablet 1 mg PO BID Qty: 12 0RF buspirone 5 mg tablet 7.5 mg PO DAILY Label Comments: TAKE 1 TABLET BY MOUTH TWICE DAILY acetaminophen [Tylenol] 325 MG tablet 1,000 mg PO Q4H PRN PRN paroxetine HCl 20 mg tablet 20 tab PO DAILY Label Comments: TAKE ONE TABLET BY MOUTH EVERY DAY ibuprofen 600 MG tablet 600 mg PO Q6H PRN PRN0RF meclizine 25 mg tablet 25 mg PO TID PRN (Reason: dizziness) Qty: 30 0RF levothyroxine 125 MCG tablet 150 mcg PO DAILY@0600 Discharge Instructions Instructions: Depression (ED) Additional Instructions: Please return immediately to the emergency department if you develop any new or worsening symptoms, if your condition does not improve as expected, or if you become otherwise concerned. It is extremely important that you call soon as possible to make an appointment to be seen in follow-up for this visit by your primary care doctor. Stand Alone Forms: Work Release Referrals: Yariel Ferreira [Primary Care Provider] - Discharge Data Discharge Date/Time-TO BE ENTERED AT DEPARTURE: 01/23/22 09:06
[2022-01-23] MEDS: LORazepam 1 MG TAB PO (09:06)
--- NOTE | 2022-01-23 13:26 | PDOC.MHCN_ITS ---
Date of service: 01/23/22 Time of Service: 08:10 PHQ-9 Over the last 2 weeks, how often have you been bothered by any of the following problems? 1. Little interest or pleasure in doing things: nearly every day 2. Feeling down, depressed, or hopeless: more than half the days 3. Trouble falling or staying asleep, or sleeping too much: not at all 4. Feeling tired or having little energy: several days 5. Poor appetite or overeating: not at all 6. Feeling bad about yourself - or that you are a failure or have let yourself and your family down: nearly every day 7. Trouble concentrating on things, such as reading the newspaper or watching television: nearly every day 8. Moving or speaking so slowly that other people could have noticed? - Or the opposite - being so fidgety or restless that you have been moving around a lot more than usual: several days 9. Thoughts that you would be better off or of hurting yourself in some way: several days Total score: 14 If you checked off any problems, how difficult have these problems made it for you to do your work, take care of things at home, or get along with other people?: very difficult PHQ-9 Results: Positive Source: Developed by Drs. Rigoberto Velazquez, Bindu Mckeon, Benjamin Berg and colleagues, with an educational chris from [employer]. Suicide Severity Rate CSSRS Have you wished you were or wished you could go to sleep and not wake up?: Yes Have you actually had any thoughts of killing yourself?: Yes CSSRS2 Have you been thinking about how you might do this?: Yes Have you had these thoughts and had some intention of acting on them?: No Have you started to work out or worked out the details of how to kill yourself? Do you intend to carry out this plan?: No CSSRS3 Have you ever done anything, started to do anything or prepared to do anything to end your life?: No Screening Score Total Score: 4 Screening: Positive Mental Health Emergency Note Release [facility] release signed:: Yes Reason for Visit Trinity reports she has had increased suicidal ideation and needed to talk to someone about what's happening. In the last 2 weeks has the pt presented for ES prior to today?: Unknown Client Information Client is: Adult Outpatient Well Housed: Yes Non Suicidal Self Injury Current: No History: yes, Trinity reports she use to cut herself years ago. Safety Risk/Harm to Self or Others Current Ideation to Harm Self or Others: Yes to self. (Trinity reports she was thinking about overdosing on her medications but drove herself to the emergency room instead.) Intent: no, has no intent. Plan: yes,has a plan. History of suicide attempt: No history of suicide attempt reported Risk: Does risk to harm exist?: No Risk: N/A Duty to warn indicated: No Asssessment/Mental Status Appearance: Disheveled Attitude: Cooperative Behavior: Gait disturbances Speech: Normal Affect: Cogruent with mood Mood: Sad, Depressed and Anxious Thought process: Unremarkable Hallucinations: No evidence Delusions: No evidence Attention: Unremarkable Perception: Not impaired Orientation: Fully orientated Memory: Intact Insight: Fair Judgement: Fair Neurovegetative Symptoms Sleep: No change Appetitie: Increase Interests: Decrease Energy: Decrease Libido: Not applicable Substance Use: Do you use nicotine?: No Have you used substances in the last 7 days?: yes, Trinity smokes marijauna. Additional Issues: Assaultive/Threatening Behavior: No Medical Concerns: No Client engaged in active self harm w/weapon: No Threatening to run away: No Child reported abuse/neglect: No Voluntarily presenting for services: Yes Domestic violence is a concern: No Extreme Psychosis or extreme behavior is present: No Impression Trinity reports she has had increased anxiety the past two days and today she felt she was endorsing suicidal ideation. Trinity reports she would overdose on her medications if she was not able to discuss what is going on. Trinity does not want to end her life as she is a mom, she just feels as if she is st ruggling due to not having a lot of natural supports. Trinity reports she has her boyfriend as a support and plans to go stay with him. Trinity and this commercial real estate underwriter had a conversation about what a crisis bed looks like and this commercial real estate underwriter has asked her to consider a referral to a crisis bed. Resources Reos[employer]ces reviewed and given:: 988, Crisis Bed and [facility] Plan/Disposition Recommended Disposition: [facility] Services ([employer] check ins) [facility] Services: Other and Therapy. Plan: Trinity will be discharged home on a safety plan and follow up with ES regarding a crisis bed referral and how she is doing. Person reported agreement to plan: Yes Reports/communication Outcome discussed with: ED/Personnel
== END 2022-01-23 09:06 | disposition home or self-care (01) ==
PROVIDERS: Emergency Provider Student in an Organized Health Care Education/Training Program; PCP Physician Assistant
DX: F32.A Depression, unspecified (principal); R45.851 Suicidal ideations
CPT/HCPCS: 99285; 99283

== ENCOUNTER 2022-02-14 08:46 | Emergency (ER) | payer MEDICAID, SELFPAY ==
[2022-02-14 09:02] VITALS: BP 120/81; PULSE 88; RESP 17; TEMP 37.1; O2SAT 96
--- NOTE | 2022-02-14 09:45 | DI.CT_ITS ---
Exam(s) CT ABDOMEN PELVIS W EXAM: CT ABDOMEN PELVIS W CLINICAL HISTORY: RLQ pain TECHNIQUE: Imaging Protocol: Axial computed tomography images with coronal and sagittal reformatted images were created and reviewed CONTRAST MATERIAL: Intravenous: Omnipaque 350 Contrast volume:100 mL Oral: Yes COMPARISON: CT CT ABDOMEN PELVIS W from 10/26/2020 FINDINGS: ABDOMEN: Lung Bases: Normal where visualized. Liver: Normal density. No measurable mass. Portal, Superior Mesenteric, and Splenic Veins: Unremarkable. Gallbladder and Biliary Tract: No radiodense calculus or dilation. Pancreas: Normal density, no abnormal calcifications or inflammatory process. Spleen: Normal. Adrenals: No masses seen. Kidneys: Normal size, contour and axis. No radiodense stones or obstructive uropathy. No masses seen. Abdominal Aorta: Abdominal portion non-dilated. Bowel: No evidence of bowel obstruction. There is mild wall thickening in loops of proximal small jocelyn wel in the left upper quadrant. No evidence of appendicitis. Peritoneal Cavity: There is a small amount of free fluid in the pelvis. No free air. Lymph Nodes: Within normal limits. Bones: Within normal limits for the patient's age. Soft Tissues: Unremarkable. PELVIS: Bladder: Symmetric distention, no gross wall thickening. Reproductive Organs: Unremarkable as visualized. Lymph Nodes: Within normal limits. Bones: Within normal limits for the patient's age. IMPRESSION: 1. No findings to suggest acute appendicitis. 2. Mild wall thickening in loops of proximal small bowel in the left upper quadrant. This may repres ent an enteritis. Please correlate clinically. 3. Small amount of free fluid in the pelvis which may be physiologic. 4. Findings were discussed with Ilan Cartwright at 11:11 a.m. on 02/14/2022. RADIATION DOSE DELIVERED: 1,075.66mGy.cm Total DLP DATA REPOSITORY: All CT scans at this facility are submitted to the National Radiology Data Registry (NRDR) Dose Index Registry (DIR) with the [employer] (A[employer]). RADIATION OPTIMIZATION: All CT scans at this facility use at least one of these dose optimization te chniques: automated exposure control; mA and/or kV adjustment per patient size (includes targeted exa ms where dose is matched to clinical indication); or iterative reconstruction.
--- NOTE | 2022-02-14 09:48 | W.ED.GENAD ---
Discharge Plan Disposition Patient Disposition: Home Condition: Stable Discharge Details Clinical Impression: Rupture of cyst of right ovary Primary Care Provider: Yariel Ferreira ED Provider: Ilan Cartwright Home Meds and New Rx's Prescriptions: Continued buspirone 5 mg tablet 7.5 mg PO DAILY Label Comments: TAKE 1 TABLET BY MOUTH TWICE DAILY acetaminophen [Tylenol] 325 MG tablet 1,000 mg PO Q4H PRN PRN paroxetine HCl 20 mg tablet 60 mg PO DAILY Label Comments: TAKE ONE TABLET BY MOUTH EVERY DAY ibuprofen 600 MG tablet 600 mg PO Q6H PRN PRN0RF meclizine 25 mg tablet 25 mg PO TID PRN (Reason: dizziness) Qty: 30 0RF levothyroxine 125 MCG tablet 150 mcg PO DAILY@0600 clonazepam 0.5 mg tablet 1 mg PO BID PRN No Action dicyclomine 20 mg tablet 20 mg PO TID PRN (Reason: stomach upset) Qty: 14 0RF Discharge Instructions Instructions: Ovarian Cyst (ED) Additional Instructions: Please continue inhe-fqq-lawfkwr pain medication as needed for discomfort. You have been given a limited supply of narcotic after discussion of risk versus benefit of this. Please do not drive any vehicles, operate heavy machinery, utilize firearms or perform anything dangerous while on this medication. Use sparingly and only as needed for severe pain. If not improving in the next week follow-up with your primary care provider for reassessment otherwise return to the emergency department for any significant worsening or change of your symptoms. Stand Alone Forms: Work Release Referrals: Yariel Ferreira [Primary Care Provider] - 1 week (If not improving) Discharge Data Discharge Date/Time-TO BE ENTERED AT DEPARTURE: 02/14/22 13:38 Medical Decision Making Patient presenting to the emergency department for chief complaint of right-sided lower abdominal pain. This started last night and has only progressively worsened since. Patient did take some enxy-phx-tqxgoyv pain medication yesterday evening but did not help with pain much. She does state 1 episode of vomiting. Pain does not seem to change with food intake and she does states she is ready to start her menstrual cycle any day now. She denies fever chills, chest pain or shortness of breath. Physical exam shows right lower quadrant and suprapubic tenderness to palpation otherwise no CVA tenderness, normal respiratory cardiac exam, normal active bowel sounds. We will plan on checking labs and CT imaging and ensuring patient is not . Pending results we will give patient IV fluids and ketorolac. Review of patient's labs show an unremarkable CBC. CMP shows BUN of 6, creatinine 1.5 otherwise unremarkable CMP. Urinalysis shows trace intact blood but otherwise negative for infection, patient is not . Review of CT imaging and speaking with radiologist shows a small amount of physiological fluid present in the lower pelvis but otherwise unremarkable CT with no signs of appendicitis bowel obstruction or other surgical findings. Reassessed patient and she states no improvement after ketorolac and still having significant amount of pain. Will order transvaginal and pelvic ultrasound. Pending those results we will give patient [place] to see if this helps with discomfort. Primary report from imaging technician states good blood flow to right ovary, there is the free fluid noted but otherwise no emergent findings were reported. Will discharge patient with limited amount of narcotic to help given her severe pain but feel this is more likely an ovarian cyst that is ruptured with continued irritation due to free fluid. Will recommend that patient follows up with primary care provider if not improving in the next week. After discussion of diagnosis and plan of care patient has no further needs, questions, or concerns and states clear understanding to return to the emergency department for any worsening symptoms. This documentation was generated using [employer] dictation system, please disregard any oddities of phrase or misspellings. Sign Out No HPI General Mode of arrival: ambulatory. Date/Time Provider Initiated Documentation: 02/14/22 09:33. Limitations to Documentation: no limitations. Information obtained by: patient, RN notes reviewed and old records reviewed. History of Present Illness 31 year old F presents to the emergency department with the chief complaint of Right lower quadrant abdominal pain, described as moderate and severe, with intensity rated at 9. Quality is described as sharp, and is localized to the abdomen and right. Patient reports no radiation. Patient started experiencing this day(s) (1) and it has been constant. No relieving factors improve symptom(s), No exacerbating factors reported . Patient notes nausea/vomiting. Patient did receive the following treatments prior to arrival, none Related Data Home Medications Medication Instructions Recorded Confirmed ibuprofen 600 mg tablet 600 mg PO Q6H PRN PRN 04/28/17 02/16/22 acetaminophen 325 mg tablet 1,000 mg PO Q4H PRN PRN 12/14/17 02/16/22 (Tylenol) meclizine 25 mg tablet 25 mg PO TID PRN dizziness #30 tabs 07/03/21 02/16/22 levothyroxine 125 mcg tablet 150 mcg PO DAILY@0600 09/15/21 02/16/22 buspirone 5 mg tablet 7.5 mg PO DAILY 10/20/21 02/16/22 paroxetine HCl 20 mg tablet 60 mg PO DAILY 11/25/21 02/16/22 clonazepam 0.5 mg tablet 1 mg PO BID PRN 02/14/22 02/16/22 dicyclomine 20 mg tablet 20 mg PO TID PRN stomach upset #14 02/16/22 tabs Previous Rx's Medication Instructions Recorded ibuprofen 600 mg tablet 600 mg PO Q6H PRN PRN 04/28/17 meclizine 25 mg tablet 25 mg PO TID PRN dizziness #30 tabs 07/03/21 dicyclomine 20 mg tablet 20 mg PO TID PRN stomach upset #14 02/16/22 tabs Allergies Allergy/AdvReac Type Severity Reaction Status Date / Time mirtazapine [From Remeron] AdvReac Severe Agitation Verified 02/16/22 17:25 fluoxetine HCl [From Prozac] AdvReac Agitation Verified 02/16/22 17:25 General Stated Complaint: Abd Prob MELBA: 3 Review of Systems Constitutional Constitutional: Denies chills, Denies fever(s) and Denies poor appetite Cardiovascular Cardiovascular: Denies chest pain and Denies dyspnea Respiratory Respiratory: Denies cough and Denies dyspnea Gastrointestinal Gastrointestinal: Reports as per HPI, Reports abdominal pain, Denies melena, Denies change in bowel habits, Denies constipation, Denies diarrhea, Reports nausea and Reports vomiting Genitourinary Genitourinary: Denies hematuria, Denies dysuria, Denies pelvic pain, Denies flank pain, Denies urinary hesitancy, Denies urinary urgency and Denies vaginal discharge Integumentary/Breasts Skin/Breast: Denies rash PFSH All Active Problems (Updated 02/16/22 @ 19:31 by Zoraida Valdovinos, MARINO) Suicidal thoughts (Acute) Depression (Chronic) Rupture of cyst of right ovary (Acute) Gastroenteritis (Acute) Medical History (Updated 02/16/22 @ 19:31 by Zoraida Valdovinos NP) Anxiety with depression Off and On since age 15, typically situational. Onset after parents divorce, again with of grandfather. Previous use of Remeron, Prozac, Celexa Hypothyroidism Onset at age 9. 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 Poor dentition Root canal 11/29 Surgical History Ligation of fallopian tube (07/18/17) Bilateral laparoscopic salpingectomy for sterilization. Normal pathology. Family History Mother No problems noted. Father FHx: Tu[place]rumy-Qezhw-Imwev disease Maternal Aunt No problems noted. Maternal Cousin No problems noted. Social History Smoking/Tobacco Use Status: Current every day Tobacco Type: cigarettes Smoking risk assessment performed?: Yes Alcohol Intake: current Alcohol Intake frequency: holidays/special occasions only Drug use: Daily Substance use type: marijuana Do you feel safe at home: Yes Do you feel safe in your relationship?: Yes Exam Const General: cooperative Orientation: alert, awake and oriented x3 Resp Effort & Inspection: normal respiratory effort and able to speak in complete sentences Auscultation: clear to auscultation bilaterally Cardio Rate: regular rate Rhythm: regular rhythm Heart Sounds: S1 normal and S2 normal GI Inspection: normal to inspection Palpation: soft, no hepatosplenomegaly, not firm, no guarding, no masses, no pulsatile masses, not rigid, no splenomegaly and tender in the RLQ; not suprapubicly, psoas sign negative and with no rebound tenderness Auscultation: normal bowel sounds General: No CVA tenderness Back/Spine/Pelvis Back: no CVA tenderness Neuro General: patient alert, patient awake, patient oriented x3, gait normal and moves all extremities Course Vital Signs Vital signs: Vital Signs Temperature 37.1 C 02/14/22 09:02 Pulse 88 02/14/22 09:02 Respiratory Rate 17 02/14/22 09:02 Blood Pressure 120/81 02/14/22 09:02 Pulse Oximetry 96 02/14/22 09:02 Temperature 37.1 C 02/14/22 09:02 Temperature Source Tympanic 02/14/22 09:02 Pulse 88 02/14/22 09:02 Respiratory Rate 17 02/14/22 09:02 Blood Pressure 120/81 02/14/22 09:02 Blood Pressure Position Sitting 02/14/22 09:02 Pulse Oximetry 96 02/14/22 09:02 Oxygen Delivery Method Room Air 02/14/22 09:02 Oxygen Flow Rate 0 02/14/22 09:02 Pain Level 9 02/14/22 09:02
[2022-02-14 09:55] LABS: Abs Immature Grans 0.01 10^3/uL (0.0-0.06); Absolute Basophil Count 0.06 10^3/uL (0.0-0.2); Absolute Eosinophil Count 0.28 10^3/uL (0.0-0.7); Absolute Lymphocyte Count 2.08 10^3/uL (1.2-3.4); Absolute Monocyte Count 0.43 10^3/uL (0.1-0.8); Absolute Neutrophil Count 4.07 10^3/uL (1.2-6.7); Basophils % 0.9; Immature Grans % 0.1; MCH 28.1 pg (27.0-33.0); MCHC 32.5 % (32.0-36.0); MCV 87 fL (80-95); MPV 9.2 fL (8.0-11.0); Monocytes % 6.2; Neutrophils % 58.8; Platelet Count 303 10^3/uL (130-400); RBC 4.62 10^6/uL (3.93-5.22); RDW 15.6 % (11.7-14.6); RDW-SD 49.3 fL; WBC 6.93 10^3/uL (4.4-10.8)
[2022-02-14 09:57] LABS: Bilirubin Negative (Negative); Blood Trace-intact (Negative); Clarity Clear (Clear); Glucose Negative (Negative); Ketones Negative (Negative); Leukocyte Esterase Negative (Negative); Nitrite Negative (Negative); Urobilinogen 0.2 EU/dL (Up TO 0.2); pH 6.5 (5-8)
[2022-02-14 10:03] LABS: Bacteria Negative HPF (Negative); C & S Indicated? No; Casts Negative LPF (Negative); Crystals Negative HPF (Negative); Epithelial Cells Few HPF (Negative); Mucus Negative (Negative); RBC 0-2 HPF (0-2); WBC Negative HPF (0-5)
[2022-02-14] MEDS: Ketorolac 15 MG/ML VIAL IVP (10:05)
[2022-02-14] MEDS: Normal Saline 1,000 ML 1000 ML IV (10:06)
[2022-02-14] MEDS: Ondansetron 4 MG/2 ML VIAL IVP (10:06)
[2022-02-14 10:12] LABS: ALT 36 U/L (14-59); AST 31 U/L (15-37); Albumin 3.8 g/dL (3.4-5.0); Alkaline Phosphatase 59 U/L (46-116); Anion Gap 7.2 mmol/L (3-11); BUN 6 mg/dL (7-18); Bilirubin, Total 0.3 mg/dL (0.2-1.0); CO2 29.8 mmol/L (21.0-32.0); CREATININE 0.5 mg/dL (0.55-1.02); Calcium 8.9 mg/dL (8.5-10.1); Chloride 100 mmol/L (98-107); Estimated GFR 128.52 (mL/min/1.73m2); Glucose 95 mg/dL (74-106); Magnesium 1.8 mg/dL (1.8-2.4); Potassium 3.5 mmol/L (3.5-5.1); Sodium 137 mmol/L (136-145); Total Protein 7.6 g/dL (6.4-8.2)
[2022-02-14] MEDS: Omnipaque 350 MG/ML 100 ML BTL IJ (10:36)
[2022-02-14] MEDS: Normal Saline - Diluent 50 ML VIAL IV (10:36)
--- NOTE | 2022-02-14 11:30 | DI.US_ITS ---
Exam(s) US PELVIS TRANSVAGINAL EXAM: US PELVIS TRANSVAGINAL CLINICAL HISTORY: Right pelvic pain. TECHNIQUE: Transabdominal and transvaginal pelvic ultrasound was performed using standard protocol. COMPARISON: CT CT ABDOMEN PELVIS W from 02/14/2022 FINDINGS: UTERUS: Position: Retroverted. Size: 7.8 long by 5.5 AP by 6.1 transverse cm Endometrium: 1.4 cm. Normal for patient's menstrual status. There is a small amount of fluid seen wit hin the endometrial canal. Myometrium: Unremarkable. Cervix: Unremarkable. OVARIES: Right: 3.7 x 2.5 x 3.3 cm Cyst or mass: No suspicious cystic or solid masses. Left: 3.7 x 3 x 2 cm Cyst or mass: No suspicious cystic or solid masses. DOPPLER: Color: Symmetric and uniform flow to both ovaries. CUL-DE-SAC: Free fluid: There is a small amount of free fluid in the cul-de-sac. This is likely physiologic. Other: None. IMPRESSION: 1. Normal-appearing uterus with endometrial stripe within normal limits. 2. Unremarkable bilateral ovaries. 3. Findings were discussed with Ilan Cartwright in the emergency department on the date of the exami nation. DATA REPOSITORY:
[2022-02-14] MEDS: HYDROcodone 5/Acetaminophen 325 TAB PO (11:40)
[2022-02-14 13:37] VITALS: BP 139/93; PULSE 78; RESP 18; O2SAT 100
== END 2022-02-14 13:38 | disposition home or self-care (01) ==
PROVIDERS: Emergency Provider Nurse Practitioner Family; PCP Physician Assistant
DX: N83.291 Other ovarian cyst, right side (principal)
CPT/HCPCS: 36415; 80053; 81025; 96361; 96374; 96375; 99285; 74177; 76830; 76856; 81003; 81015; 83735; 85025; 99284; J1885; J2405; J3490

== ENCOUNTER 2022-02-16 17:01 | Emergency (ER) | payer MEDICAID, SELFPAY ==
[2022-02-16 17:22] VITALS: BP 130/93; PULSE 79; RESP 18; TEMP 36.8; O2SAT 97
--- NOTE | 2022-02-16 17:30 | RT.EKG_ITS ---
APPROVED REPORT Exam: Resting ECG Reason for Exam: chest pain Patient Location: E HR:68 bpm ECG Measurements Heart Rate 68 AXIS IL 179 P 82 QRSd 90 QRS 39 QT 381 T -8 QTc 407 Conclusion Sinus rhythm...normal P axis, V-rate 60- 99
--- NOTE | 2022-02-16 18:04 | ED.GENADUL_ITS ---
Discharge Plan Disposition Patient Disposition: Home Condition: Stable Discharge Details Clinical Impression: Gastroenteritis Primary Care Provider: Yariel Ferreira ED Provider: Zoraida Valdovinos Home Meds and New Rx's Prescriptions: New dicyclomine 20 mg tablet 20 mg PO TID PRN (Reason: stomach upset) Qty: 14 0RF No Action buspirone 5 mg tablet 7.5 mg PO DAILY Label Comments: TAKE 1 TABLET BY MOUTH TWICE DAILY acetaminophen [Tylenol] 325 MG tablet 1,000 mg PO Q4H PRN PRN paroxetine HCl 20 mg tablet 60 mg PO DAILY Label Comments: TAKE ONE TABLET BY MOUTH EVERY DAY ibuprofen 600 MG tablet 600 mg PO Q6H PRN PRN0RF meclizine 25 mg tablet 25 mg PO TID PRN (Reason: dizziness) Qty: 30 0RF levothyroxine 125 MCG tablet 150 mcg PO DAILY@0600 clonazepam 0.5 mg tablet 1 mg PO BID PRN Discharge Instructions Instructions: Gastroenteritis (ED) Additional Instructions: Please take the nausea medication as directed approximately 20 to 30 minutes before eating or drinking anything. Take the dicyclomine up to 3 times daily as needed for stomach cramps. Clear liquids for the next 2 to 3 days advance as tolerated with a bland diet. No spicy, fried, fatty foods. Follow up with primary care provider in 3-5 days. Return to ED sooner if any worsening or concerns. Increase oral fluids. Please take Tylenol or Ibuprofen with food every 4-6 hours as needed for pain and swelling. Referrals: Yariel Ferreira [Primary Care Provider] - 5 days Discharge Data Discharge Date/Time-TO BE ENTERED AT DEPARTURE: 02/16/22 19:53 Medical Decision Making Patient is a 31-year-old female was seen earlier for abdominal pain possible ovarian cyst and had CT and a full complete work-up. Labs were largely unremarkable, had a CT abdomen pelvis. Which showed some inflammation in the colon in the left upper quadrant questionable enteritis. And some free pelvic fluid. I do suspect gastroenteritis, I discussed this with the patient. I did give her some dicyclomine and instructed on home care and Zofran. Discussed tricked return instructions. Labs are largely unremarkable. Discussed strict return instructions. I did not offer any additional narcotics as I reported that this may be making her feel worse including the bloating and dizziness. She verbalizes understanding. This text was generated using [employer] system, please disregard any oddities of phrase or misspellings. Medical Records Medical records reviewed: Yes I reviewed the patient's medical records. Medical records narrative: CT results and lab results from earlier visit. Lab Data Lab results reviewed: Yes I reviewed the patient's lab results. Labs: Laboratory Tests Range/Units 02/16/22 02/16/22 02/16/22 17:55 17:55 18:25 WBC (4.4-10.8) 10^3/uL 7.72 RBC (3.93-5.22) 10^6/uL 4.87 Hgb (11.2-15.7) g/dL 13.6 Hct (36.0-46.0) % 41.4 MCV (80-95) fL 85 MCH (27.0-33.0) pg 27.9 MCHC (32.0-36.0) % 32.9 RDW (11.7-14.6) % 15.4 H Plt Count (130-400) 10^3/uL 345 MPV (8.0-11.0) fL 9.2 Immature Gran % 0.3 Neutrophils % 45.6 Lymphocytes % 43.3 Monocytes % 6.5 Eosinophils % 3.4 Basophils % 0.9 Nucleated RBC % (0.0-0.3) % 0.0 Absolute Neutrophils (1.2-6.7) 10^3/uL 3.53 Absolute Lymphocytes (1.2-3.4) 10^3/uL 3.34 Absolute Monocytes (0.1-0.8) 10^3/uL 0.50 Absolute Eosinophils (0.0-0.7) 10^3/uL 0.26 Absolute Basophils (0.0-0.2) 10^3/uL 0.07 Sodium (136-145) mmol/L 137 Potassium (3.5-5.1) mmol/L 3.5 Chloride (98-107) mmol/L 101 Carbon Dioxide (21.0-32.0) mmol/L 27.6 Anion Gap (3-11) mmol/L 8.4 BUN (7-18) mg/dL 8 Creatinine (0.55-1.02) mg/dL 0.6 Est GFR (CKD-EPI 2020) (mL/min/1.73m2) 122.99 Glucose (74-106) mg/dL 89 Calcium (8.5-10.1) mg/dL 9.2 Magnesium (1.8-2.4) mg/dL 1.9 Total Bilirubin (0.2-1.0) mg/dL 0.3 AST (15-37) U/L 24 ALT (14-59) U/L 34 Alkaline Phosphatase (46-116) U/L 59 Troponin I (<or=60) ng/L < 50 Total Protein (6.4-8.2) g/dL 8.0 Albumin (3.4-5.0) g/dL 4.0 Lipase (73-393) U/L 60 Urine Color (Yellow) Yellow Urine Clarity (Clear) Sl Cloudy Urine pH (5-8) 6.5 Ur Specific [place] (1.005-1.025) 1.020 Urine Protein (Negative) mg/dL Negative Urine Ketones (Negative) mg/dL Negative Urine Blood (Negative) Trace-intact H Urine Nitrite (Negative) Negative Urine Bilirubin (Negative) Negative Urine Urobilinogen (Up TO 0.2) EU/dL 0.2 Ur Leukocyte Esterase (Negative) Negative Urine RBC (0-2) HPF 3-5 H Urine WBC (0-5) HPF 0-2 Ur Epithelial Cells (Negative) HPF Many Urine Crystals (Negative) HPF Negative Urine Bacteria (Negative) HPF Few Urine Mucus (Negative) Moderate Ur Culture Indicated? No Urine Glucose (Negative) mg/dL Negative Sign Out No HPI General Mode of arrival: ambulatory . Date/Time Provider Initiated Documentation: 02/16/22 17:32 . Limitations to Documentation: no limitations . Information obtained by: patient, RN notes reviewed and old records reviewed . HPI Narrative: 31-year-old female presents to the ER chief complaint abdominal pain, nausea vomiting bloating dizziness after being seen here 2 days ago diagnosed with ovarian cyst with normal free fluid in the pelvis was given tramadol which he checked yesterday. Denies any Is needed, emesis. Denies any vaginal bleeding. Initial FAST exam no significant amount of fluid noted. Related Data Home Medications Medication Instructions Recorded Confirmed ibuprofen 600 mg tablet 600 mg PO Q6H PRN PRN 04/28/17 02/16/22 acetaminophen 325 mg tablet 1,000 mg PO Q4H PRN PRN 12/14/17 02/16/22 (Tylenol) meclizine 25 mg tablet 25 mg PO TID PRN dizziness #30 tabs 07/03/21 02/16/22 levothyroxine 125 mcg tablet 150 mcg PO DAILY@0600 09/15/21 02/16/22 buspirone 5 mg tablet 7.5 mg PO DAILY 10/20/21 02/16/22 paroxetine HCl 20 mg tablet 60 mg PO DAILY 11/25/21 02/16/22 clonazepam 0.5 mg tablet 1 mg PO BID PRN 02/14/22 02/16/22 dicyclomine 20 mg tablet 20 mg PO TID PRN stomach upset #14 02/16/22 tabs Previous Rx's Medication Instructions Recorded ibuprofen 600 mg tablet 600 mg PO Q6H PRN PRN 04/28/17 meclizine 25 mg tablet 25 mg PO TID PRN dizziness #30 tabs 07/03/21 dicyclomine 20 mg tablet 20 mg PO TID PRN stomach upset #14 02/16/22 tabs Allergies Allergy/AdvReac Type Severity Reaction Status Date / Time mirtazapine [From Remeron] AdvReac Severe Agitation Verified 02/16/22 17:25 fluoxetine HCl [From Prozac] AdvReac Agitation Verified 02/16/22 17:25 General Stated Complaint: GenMedical MELBA: 3 Review of Systems All systems reviewed & are unremarkable except as noted in HPI and below Constitutional Constitutional: Reports as per HPI and Reports headache(s) ENT Ears, Nose, Mouth, and Throat: Reports dizziness and Reports headache(s) Gastrointestinal Gastrointestinal: Reports abdominal pain, Reports bloating, Reports nausea and Reports vomiting Neurologic Neurologic: Denies abnormal movements, Denies abnormal speech, Reports dizziness, Reports headache(s), Denies localized weakness and Denies seizure- like activity PFSH All Active Problems (Updated 02/16/22 @ 19:31 by Zoraida Valdovinos NP) Suicidal thoughts (Acute) Depression (Chronic) Rupture of cyst of right ovary (Acute) Gastroenteritis (Acute) Medical History (Updated 02/16/22 @ 19:31 by Zoraida Valdovinos NP) Anxiety with depression Off and On since age 15, typically situational. Onset after parents divorce, again with of grandfather. Previous use of Remeron, Prozac, Celexa Hypothyroidism Onset at age 9. 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 Poor dentition Root canal 11/29 Surgical History Ligation of fallopian tube (07/18/17) Bilateral laparoscopic salpingectomy for sterilization. Normal pathology. Family History Mother No problems noted. Father FHx: Sqidvth-Xqlta-Cdrwf disease Maternal Aunt No problems noted. Maternal Cousin No problems noted. Social History Smoking/Tobacco Use Status: Current every day Tobacco Type: cigarettes Smoking risk assessment performed?: Yes Alcohol Intake: current Alcohol Intake frequency: holidays/special occasions only Drug use: Daily Substance use type: marijuana Do you feel safe at home: Yes Do you feel safe in your relationship?: Yes Exam Narrative Exam Narrative: Constitutional: Alert and oriented x3. Appears stated age. Normal body habitus. Head: Normocephalic, no trauma. Eyes: Pupils PERRL, Red reflex noted, EOM's intact. Eyelids symmetrical without lesions, discharge, or swelling. ENT: Bilateral TM's WNL, External ear normal to inspection, no mastoid TTP, swelling, or erythema, Nasal turbinates WNL, no nasal discharge. Normal dentition, Posterior pharynx WNL, no exudate. Chest: RRR, Normal S1, S2, distal pulses intact. Resp: Lungs clear to auscultation bilaterally, no wheezes, rales, or rhonchi. Abdomen: Soft, non-distended, Normoactive bowel sounds all 4 quads. Left upper quadrant tenderness with palpation. Musculoskeletal: Normal gait, 5/5 strength to all four extremities. Skin: No suspicious rashes or lesions. Capillary refill less than 2 sec. Neurologic: Cranial nerves II-XII intact. Alert and oriented x 3. Motor: No deficits noted. Sensory: Intact bilaterally all 4 extremities. Reflexes: DTR's intact bilaterally.. Hematologic/Lymphatic: No ecchymosis, no lymphadenopathy. Course Vital Signs Vital signs: Vital Signs Temperature 36.8 C 02/16/22 17:22 Pulse 79 02/16/22 17:22 Respiratory Rate 18 02/16/22 17:22 Blood Pressure 130/93 H 02/16/22 17:22 Pulse Oximetry 97 02/16/22 17:22 Temperature 36.8 C 02/16/22 17:22 Temperature Source Oral 02/16/22 17:22 Pulse 79 02/16/22 17:22 Respiratory Rate 18 02/16/22 17:22 Respiratory Effort Non-Labored 02/16/22 17:26 Blood Pressure 130/93 H 02/16/22 17:22 Blood Pressure Position Sitting 02/16/22 17:22 Pulse Oximetry 97 02/16/22 17:22 Oxygen Delivery Method Room Air 02/16/22 17:22 Oxygen Flow Rate 0 02/16/22 17:22
[2022-02-16 18:07] LABS: Abs Immature Grans 0.02 10^3/uL (0.0-0.06); Absolute Basophil Count 0.07 10^3/uL (0.0-0.2); Absolute Eosinophil Count 0.26 10^3/uL (0.0-0.7); Absolute Lymphocyte Count 3.34 10^3/uL (1.2-3.4); Absolute Neutrophil Count 3.53 10^3/uL (1.2-6.7); Basophils % 0.9; Eosinophils % 3.4; HCT 41.4 % (36.0-46.0); HGB 13.6 g/dL (11.2-15.7); Immature Grans % 0.3; Lymphocytes % 43.3; MCH 27.9 pg (27.0-33.0); MCHC 32.9 % (32.0-36.0); MCV 85 fL (80-95); MPV 9.2 fL (8.0-11.0); Monocytes % 6.5; Neutrophils % 45.6; Platelet Count 345 10^3/uL (130-400); RBC 4.87 10^6/uL (3.93-5.22); RDW 15.4 % (11.7-14.6); RDW-SD 47.8 fL; WBC 7.72 10^3/uL (4.4-10.8)
[2022-02-16 18:12] VITALS: RESP 18
[2022-02-16 18:25] LABS: ALT 34 U/L (14-59); AST 24 U/L (15-37); Alkaline Phosphatase 59 U/L (46-116); Anion Gap 8.4 mmol/L (3-11); BUN 8 mg/dL (7-18); Bilirubin, Total 0.3 mg/dL (0.2-1.0); CO2 27.6 mmol/L (21.0-32.0); CREATININE 0.6 mg/dL (0.55-1.02); Calcium 9.2 mg/dL (8.5-10.1); Chloride 101 mmol/L (98-107); Estimated GFR 122.99 (mL/min/1.73m2); Glucose 89 mg/dL (74-106); Lipase 60 U/L (73-393); Magnesium 1.9 mg/dL (1.8-2.4); Potassium 3.5 mmol/L (3.5-5.1); Sodium 137 mmol/L (136-145); Troponin I < 50 ng/L (<or=60)
[2022-02-16 18:36] LABS: Bilirubin Negative (Negative); Blood Trace-intact (Negative); Clarity Sl Cloudy (Clear); Glucose Negative (Negative); Ketones Negative (Negative); Leukocyte Esterase Negative (Negative); Nitrite Negative (Negative); Urobilinogen 0.2 EU/dL (Up TO 0.2); pH 6.5 (5-8)
[2022-02-16] MEDS: Ketorolac 15 MG/ML VIAL IVP (18:39)
[2022-02-16] MEDS: Ondansetron 4 MG/2 ML VIAL IVP (18:39)
[2022-02-16] MEDS: Normal Saline 1,000 ML 1000 ML IV (18:40)
[2022-02-16 18:46] LABS: Bacteria Few HPF (Negative); C & S Indicated? No; Crystals Negative HPF (Negative); Epithelial Cells Many HPF (Negative); Mucus Moderate (Negative); WBC 0-2 HPF (0-5)
[2022-02-16] MEDS: Ondansetron O.D.T. 4 MG TABEF, 3 TABS/BTL PO (19:49)
[2022-02-16] MEDS: Dicyclomine 20 MG TAB PO (19:49)
== END 2022-02-16 19:53 | disposition home or self-care (01) ==
PROVIDERS: Emergency Provider Registered Nurse Emergency; PCP Physician Assistant
DX: K52.9 Noninfective gastroenteritis and colitis, unspecified (principal); E03.9 Hypothyroidism, unspecified; F17.210 Nicotine dependence, cigarettes, uncomplicated
CPT/HCPCS: 80053; 83690; 93005; 96361; 96374; 96375; 99284; 81003; 81015; 83735; 84484; 85025; 93010; J1885; J2405

== ENCOUNTER 2022-04-05 11:18 | Outpatient (REF) | payer MEDICAID, SELFPAY ==
[2022-04-05 16:01] LABS: TSH 3.24 uIU/mL (0.36-3.74)
== END 2022-04-05 11:19 | disposition home or self-care (01) ==
LOC: NCHCN 11:18
PROVIDERS: PCP Physician Assistant; Visit Provider Physician Assistant
DX: E04.8 Other specified nontoxic goiter (principal)
CPT/HCPCS: 84443

== ENCOUNTER 2023-09-10 18:31 | Outpatient (REF) | payer MEDICAID, SELFPAY ==
--- OUTSIDE RECORDS SUMMARY | 2023-09-10 18:33 | XMS_ITS | Continuity of Care Document ---
Author Name Unknown Organization [facility] Address [address] [place] [address] Care Team Providers Care Blade Boner Name Role Phone Yariel Ferreira Primary Care Physician Encounter [facility] Date(s): 05/30/22 - 05/30/[address] [id number] Encounter Diagnosis Osteomyelitis(Discharge Diagnosis) - 05/30/22 Dental infection(Discharge Diagnosis) - 05/30/22 Osteomyelitis, unspecified(Final) - [facility] [place] [facility] (current[facility] drug therapy(Final) - Nicotine dependence, cigarettes, uncomplicated(Final) - Discharge Disposition: Home or Self Care Attending Physician: Aimee Rosas MD Admitting Physician: Aimee Rosas MD Allergies, Adverse Reactions, Alerts Substance Reaction Severity Status mirtazapine Unknown Active FLUoxetine Unknown Active Functional Status 05/30/22 Other exposure to Infectious Disease Non e Medications !-Tylenol with Codeine #3 oral tablet 1 tab, Oral, every 4 hr, PRN as needed for pain, # 12 tab, 0 Refill(s), 06/07/22 17:15:00 EDT Start Date: 05/30/22 Stop Date: 06/07/22 Status: Ordered Abilify 0 Refill(s) Start Date: 05/30/22 Status: Ordered clindamycin 150 mg oral capsule 150 mg = 1 cap, Oral, TID, X 14 days, # 42 cap, 0 Refill(s), 06/13/22 17:14:00 EDT, Pharmacy: [id number], 155, cm, 05/30/22 11:50:00 EDT, Height/Length Dosing, 81, kg, 05/30/22 11:50:00 EDT, Weight Dosing Start Date: 05/30/22 Stop Date: 06/13/22 Status: Ordered cloNIDine 0 Refill(s) Start Date: 05/30/22 Status: Ordered levothyroxine 0 Refill(s) Start Date: 05/30/22 Status: Ordered naproxen 375 mg oral tablet 375 mg = 1 tab, Oral, BID, PRN pain, moderate, # 20 tab, 0 Refill(s), Pharmacy: [id number], 155, cm, 11/29/21 20:05:00 EDT, Height/Length Dosing, 81.65, kg, 11/29/21 20:05:00 EDT, Weight Dosing Start Date: 11/29/21 Status: Ordered Paxil 60 mg =, 0 Refill(s) Start Date: 05/30/22 Status: Ordered prazosin 0 Refill(s) Start Date: 05/30/22 Status: Ordered Results Laboratory List Name Date Beta hCG Quantitative 05/30/22 CBC w/ Diff 05/30/22 Comprehensive Metabolic Panel (CMP) 05/30 Automated Diff 05/30/22 Most recent to oldest [Reference Range]: 1 WBC [5.0-10.0 x10^3/mcL] 9.4 x10^3/mcL (05/30/22 1:01 PM) RBC [4.1-5.3 x10^6/mcL] 4.2 x10^6/mcL (05/30/22 1:01 PM) Neutro Auto [40.0-75.0 %] 60.4 % (05/30/22 1:01 PM) Lymph Auto [20.0-50.0 %] 31.4 % (05/30/22 1:01 PM) Childress Auto [2.0-15.0 %] 4.0 % (05/30/22 1:01 PM) Basophil Auto [0.0-1.0 %] 0.7 % (05/30/22 1:01 PM) BUN [7-18 mg/dL] 5 mg/dL *LOW* (05/30/22 1:01 PM) Glucose Level [74-106 mg/dL] 84 mg/dL (05/30/22 1:01 PM) Potassium Level [3.5-5.1 mmol/L] 3.7 mmo l/L (05/30/22 1:01 PM) MCV [80.0-96.0] 88.3 (05/30/22 1:01 PM) AST [15-37 unit/L] 25 unit/L (05/30/22 1: PM) ALT [14-59 unit/L] 38 unit/L (05/30/22 1: PM) MCHC [31.0-35.0 g/dL] 33.2 g/dL (05/30/22 1: PM) Sodium Level [136-145 mmol/L] 143 mmol/L (05/30/22 1: PM) Hct [37.0-47.0 %] 37.0 % (05/30/22 PM) Calcium Level [8.5-10.1 mg/dL] 9.0 mg/dL (05/30/22 1: PM) Albumin Level [3.4-5.0 g/dL] 3.4 g/dL (05/30/22 1: PM) Protein Total [6.4-8.2 g/dL] 7.3 g/dL (05/30/22 1:01 PM) MCH [26.0-32.0 pg] 29.4 pg (05/30/22 1: PM) Neutro Absolute 5.6 x10^3/mcL *NA* (05/30/22 1:01 PM) Bilirubin Total [0.2-1.0 mg/dL] 0.2 mg/d L (05/30/22 1: PM) Hgb [12.0-16.0 g/dL] 12.3 g/dL (05/30/22 1:01 PM) Alk Phos [46-146 unit/L] 51 unit/L (05/30/22 1:01 PM) Platelets [130-450 x10^3/mcL] 411 x10^3/ mcL (05/30/22 1:01 PM) CO2 [21-32 mmol/L] 27 mmol/L (05/30/22 1:01 PM) eGFR Non-AA [>=60] 127 (05/30/22 1:01 PM) eGFR AA [>=60] 127 (05/30/22 1:01 PM) Chloride Level [98-107 mmol/L] 105 mmol/ L (05/30/22 1:01 PM) RDW-CV [11.7-17.0 %] 13.8 % (05/30/22 1:01 PM) Imm Gran Auto [0.0-0.9 %] 0.3 % (05/30/22 1:01 PM) Creatinine Level [0.55-1.02 mg/dL] 0.52 mg/dL *LOW* (05/30/22 1:01 PM) Eos, Auto [1.0-6.0 %] 3.2 % (05/30/22 1:01 PM) Beta hCG Qnt [1-6 mIntlUnit/mL] 1 mIntlU nit/mL (05/30/22 1:01 PM) Vital Signs Most recent to oldest [Reference Range]: 1 2 3 Temperature Temporal Artery [36-38 Deg C] 36.6 Deg C (05/30/22 11:35 AM) Peripheral Pulse Rate [60-100 bpm] 70 bpm (05/30/22 4:37 PM) 68 bpm (05/30/22 3:12 PM) 70 bpm (05/30/22 2:11 PM) Respiratory Rate [12-24 br/min] 20 br/min (05/30/22 4:37 PM) 18 br/min (05/30/22 3:12 PM) 16 br/min (05/30/22 2:11 PM) Blood Pressure [90-140/60-90 mmHg] 119/66mmHg (05/30/22 4:37 PM) 147/87mmHg *HI* (05/30/22 3:12 PM) 131/75mmHg (05/30/22 2:11 PM) Weight Dosing 81.00 kg (05/30/22 11:50 AM) Weight Estimated 81.00 kg (05/30/22 11:35 AM) Height/Length Dosing 155.000 cm (05/30/22 11:50 AM) Height/Length Estimated 155.000 cm (05/30/22 11:35 AM) Social History Social History Type Response Tobacco Current everyday tob acco user Tobacco Use:. 1 PPD per day. Sex Female Hospital Discharge Instructions Patient Education 05/30/2022 16:16:22 Osteomyelitis, Adult Osteomyelitis, Adult Bone infections, also called osteomyelitis,occur when bacteria or other germs get inside a bone. This can happen if you have an infection in another part of your body that spreads through your blood.It can also happen if you have a wound or a broken bone (fracture) that breaks the skin. A wound ora fracture can allow germs from your skin or from outside of your body to spread to your bone. Bone infections need to be treated quickly to: ??? Prevent bone damage. ??? Prevent the infection from spreading to other areas of your body. What are the causes? Most bone infections are caused by bacteria. The most common bacteria is one found on the skin (staphylococcus). Bone infections can also be caused by other germs, such as viruses and funguses. What increases the risk? You are more likely to develop this condition if: ??? You recently had surgery, especially bone or joint surgery. ??? You have had an injury, such as stepping on a nail or having a fracture that exposes bones through the skin. ??? You have a long-term (chronic) disease, such as: ??? Diabetes. ??? HIV (human immunodeficiency virus). ??? Rheumatoid arthritis. ??? Sickle cell anemia. ??? Kidney disease that requires dialysis. ??? You have a condition that affects your body's defense system (immune system) or you take medicines that block or weaken the immune system. ??? You have a condition that reduces your blood flow. ??? You have an artificial joint. ??? You have had a joint or bone repaired with plates or screws. ??? You use IV drugs. What are the signs or symptoms? Symptoms vary depending on the type and location of your infection. Common symptoms of bone infections include: ??? Fever and chills. ??? Skin redness and warmth. ??? Swelling. ??? Pain and stiffness. ??? Drainage of fluid or pus near the infection. How is this diagnosed? This condition may be diagnosed based on: ??? Your symptoms and medical history. ??? A physical exam. ??? Tests, such as: ??? A sample of tissue, fluid, or blood taken to be examined under a microscope. ??? Pus or discharge swabbed from a wound for testing. This is to identify the type of germs and todetermine what type of medicine will kill them. ??? Blood tests. ??? Imaging studies, including X-rays, MRI, CT scan, bone scan, or ultrasound. How is this treated? Treatment for this condition depends on the cause and type of infection. Antibiotic medicines are usually the first treatment for a bone infection. This may be done in a hospital at first. You may have to continue IV antibiotics at home or take antibiotics by mouth for several weeks after that. Other treatments may include surgery to: ??? Remove or dying tissue from a bone. ??? Remove an infected artificial joint. ??? Remove infected plates or screws that were used to repair a broken bone. Follow these instructions at home: Medicines ??? Take [id number]-[id number] and prescription medicines as told by your health care provider. Finish all antibiotic medicine even if you start to feel better. ??? Follow instructions from your health care provider about how to take IV antibiotics at home. You may need to have a nurse come to your home to give you the IV antibiotics. Managing pain, stiffness, and swelling If directed, put ice on the affected area. To do this: ??? Put ice in a plastic bag. ??? Place a towel between your skin and the bag. ??? Leave the ice on for 20 minutes, 2???3 times a day. General instructions ??? Ask your health care provider if you have any restrictions on your activities. ??? Do not use any products that contain nicotine or tobacco, such as cigarettes, e-cigarettes, andchewing tobacco. If you need help quitting, ask your health care provider. ??? Keep all follow-up visits as told by your health care provider. This is important. How is this prevented? Wash your hands often to stop the spread of germs. Wash your hands for at least 20 seconds withsoap and water. If soap and water are not available, use hand information security. ??? Keep any open areas, cuts, or wounds clean. Apply a clean bandage after cleaning the area. ??? Check wounds frequently for signs of infections. Signs of infection include redness, swelling, warmth, pus, or a bad smell. ??? Wear proper footwear to avoid injuries to the feet. Contact a health care provider if: ??? You develop a fever or chills. ??? You have redness, warmth, pain, or swelling that returns after treatment. Get help right away if: ??? You have rapid breathing or you have trouble breathing. ??? You have chest pain. ??? You cannot drink fluids or make urine. ??? The affected area swells, changes color, or turns blue. ??? You have numbness or severe pain in the affected area. These symptoms may represent a serious problem that is an emergency. Do not wait to see if the symptoms will go away. Get medical help right away. Call your local emergency services (911 in the [place] Do not drive yourself to the hospital. Summary ??? Bone infections, also called osteomyelitis,occur when bacteria or other germs get inside a bone. ??? You are more likely to get this type of infection if you have a condition that lowers your ability to fight infections. You are also likely to get this condition if you take medicines that block or weaken the immune system. ??? Most bone infections are caused by bacteria. They can also be caused by other germs, such as viruses and funguses. ??? Treatment for this condition usually starts with taking antibiotics. Further treatment depends on the cause and type of infection. This information is not intended to replace advice given to you by your health care provider. Make sure you discuss any questions you have with your health care provider. Document Revised: 05/20/2020 Document Reviewed: 05/20/2020 [employer] Patient Education ?? 2021 [employer]. Follow Up Care 05/30/2022 11:35:04 With:Yariel Ferreira DO Address: [address] [place] [phone] When:1 month Physician Emergency department Note * Vinnie Montenegro MD: MODIFY, PERFORM Event Display: ED Note Physician Authored Date: [id number] HERO YEPEZ :1990 Age:31 years Sex:Female Visit Date:05/30/2022 Primary Care Physician: Yariel Ferreira DO Basic Information Time Seen: Vinnie Montenegro MD / 05/30/2022 11:52 Chief Complaint 4 days of amoxicillin for dental infection R side lower teeth. Pt sent in from urgent care for worsening facial/ tongue swelling, pt states difficulty swallowing, denies SOB. History Of Present Illness: 31-year-old female??past medical history??hypothyroidism presents with??dental pain. ??She has had symptoms for approximately??5 days at this point, located??right lower mandibular pain.?? Has been on amoxicillin for the past 3 to 4 days??prescribed as an outpatient but symptoms have been getting worse. ??No difficulty swallowing or sore throat, no fevers nausea vomiting chest pain shortness of breath abdominal pain??or any other symptoms. Review of Systems: Dental pain Physical Exam Vitals & Measurements T:??36.6?C ??(Temporal Artery)?? HR:??70??(Peripheral)?? RR:??20?? BP:??119/66?? SpO2:??98%?? HT:??155.000??cm?? WT:??81.00??kg??(Estimated)?? Pain Score:??6?? Pain Score:??6?? O2 Therapy:??Room air?? General: Alert and oriented, well nourished,?No??acute distress HENT: Significant dental caries throughout??entire mouth, there is some swelling underneath the tongue Neck: There is some induration beneath the right lower mandible??with pain to palpation??and slightswelling??noted Medical Decision Makin-year-old female presents with??dental pain that started 4 to 5 days ago, has been taking??amoxicillin for the past 3 to 4 days??without relief, symptoms are getting worse. ??36.6, 132/92, 75, 16, 100%. ??Patient has??evidence of submandibular swelling??underneath the tongue and has some induration that is palpable??near the right??anterior submandibular space. ??She is phonating well and has no neck stiffness on exam, tolerating p.o., and does not have a sore throat??and no respiratory distress, phonating normally. ?? CT scan??soft tissue neck was obtained to look for??any drainable abscess, the??submandibular tissues were??unremarkable for any drainable abscess, there was osteomyelitis noted of the right mandibular??molars, when speaking to the radiologist about this he said that this extended into the mandible itself.?? 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 ??Ultimately I spoke with ENT??on-call at [facility],??and they are in agreement that this is not??an overt case of Wilfrid angina??given the clinical presentation, and the swelling was focal on the right side of the mandible??and certainly not bilateral??and there is no signs of any respiratory compromise or distress??or any other distress. ??She was given??Tylenol threes??and ibuprofen for pain.?? Patient was called for update. OMFS??referral was placed through [facility] to get the teeth removed. ??In the meantime if she isable to follow-up with dentist this was highly recommended to have her teeth removed.??Instructed to stop taking the amoxicillin and start clindamycin.??Given return precautions the ED, strict returnprecautions regarding any worsening symptoms. ??Discharged her condition return precautions to the ED. Procedure No Qualifying Data Assessment/Plan 1.??Osteomyelitis??M86.9 Ordered: !-Tylenol with Codeine #3 oral tablet, 1 tab, Oral, every 4 hr, PRN as needed for pain, # 12 tab, 0Refill(s), 06/07/22 17:15:00 EDT clindamycin 150 mg oral capsule, 150 mg = 1 cap, Oral, TID, X 14 days, # 42 cap, 0 Refill(s), 06/13/22 17:14:00 EDT, Pharmacy: [id number], 155, cm, 05/30/22 11:50:00 EDT, Height/Length Dosing,81, kg, 05/30/22 11:50:00 EDT, Weight Dosing Discharge Patient, 05/30/22 17:13:00 EDT, Home Independently, Constant Indicator ?? Patient Education Osteomyelitis, Adult Follow Up With When Contact Information Yariel Ferreira DO Within [address] [place] [phone] Additional Instructions: Medication Reconciliation New Prescription acetaminophen-codeine (!-Tylenol with Codeine #3 oral tablet)1 tab Oral (given by mouth) every 4 hours as needed as needed for pain. Refills: 0. ?? clindamycin (clindamycin 150 mg oral capsule)1 Capsules Oral (given by mouth) 3 times a day for 14 Days. Refills: 0. ?? Unchanged ARIPiprazole (Abilify) ?? cloNIDine ?? levothyroxine ?? naproxen (naproxen 375 mg oral tablet)1 tab Oral (given by mouth) 2 times a day as needed pain, moderate. Refills: 0. ?? PARoxetine (Paxil)60 Milligrams. ?? prazosin Problem List/Past Medical History Ongoing No qualifying data Historical No qualifying data Medication Administration Given morphine, 4 mg, IV Push morphine, 2 mg, IV Push NS bolus, 1000 mL, IV Piggyback Toradol, 15 mg, IV Push Toradol, 15 mg, IV Push Unasyn, IV Piggyback Allergies FLUoxetine mirtazapine Social History Alcohol Current, 1-2 times per year Electronic Cigarette/Vaping Electronic Cigarette Use: Use, within last 90 days. Use per Day: 26-50 Inhales/day. Substance Use Current, Marijuana, Daily Tobacco Current everyday tobacco user Tobacco Use:. 1 PPD per day. Lab Results CBC and Differential?? LATEST RESULTS?? HISTORICAL RESULTS?? WBC?? 05/30/22 13:01?? 9.4?? 11/29/21?? 12.1 ??High?? RBC?? 05/30/22 13:01?? 4.2?? 11/29/21?? 4.9?? Hgb?? 05/30/22 13:01?? 12.3?? 11/29/21?? 13.8?? Hct?? 05/30/22 13:01?? 37.0?? 11/29/21?? 41.0?? MCV?? 05/30/22 13:01?? 88.3?? 11/29/21?? 83.7?? MCH?? 05/30/22 13:01?? 29.4?? 11/29/21?? 28.2?? MCHC?? 05/30/22 13:01?? 33.2?? 11/29/21?? 33.7?? RDW-CV?? 05/30/22 13:01?? 13.8?? 11/29/21?? 14.8?? Platelets?? 05/30/22 13:01?? 411?? 11/29/21?? 362?? Neutro Auto?? 05/30/22 13:01?? 60.4?? 11/29/21?? 64.5?? Lymph Auto?? 05/30/22 13:01?? 31.4?? 11/29/21?? 25.7?? Childress Auto?? 05/30/22 13:01?? 4.0?? 11/29/21?? 6.6?? Eos, Auto?? 05/30/22 13:01?? 3.2?? 11/29/21?? 2.3?? Basophil Auto?? 05/30/22 13:01?? 0.7?? 11/29/21?? 0.7?? Imm Gran Auto?? 05/30/22 13:01?? 0.3?? 11/29/21?? 0.2?? Neutro Absolute?? 05/30/22 13:01?? 5.6?? 11/29/21?? 7.8? Routine Chemistry?? LATEST RESULTS?? HISTORICAL RESULTS?? Sodium Level?? 05/30/22 13:01?? 143?? 11/29/21?? 138?? Potassium Level?? 05/30/22 13:01?? 3.7?? 11/29/21?? 3.5?? Chloride Level?? 05/30/22 13:01?? 105?? 11/29/21?? 103?? CO2?? 05/30/22 13:01?? 27?? 11/29/21?? 26?? Alk Phos?? 05/30/22 13:01?? 51?? 11/29/21?? 45 ??Low?? AST?? 05/30/22 13:01?? 25?? 11/29/21?? 14 ??Low?? ALT?? 05/30/22 13:01?? 38?? 11/29/21?? 23?? BUN?? 05/30/22 13:01?? 5 ??Low?? 11/29/21?? 5 ??Low?? Glucose Level?? 05/30/22 13:01?? 84?? 11/29/21?? 89?? Creatinine Level?? 05/30/22 13:01?? 0.52 ??Low?? 11/29/21?? 0.66?? eGFR AA?? 05/30/22 13:01?? 127?? 11/29/21?? 120?? eGFR Non-AA?? 05/30/22 13:01?? 127?? 11/29/21?? 120?? Calcium Level?? 05/30/22 13:01?? 9.0?? 11/29/21?? 9.1?? Protein Total?? 05/30/22 13:01?? 7.3?? 11/29/21?? 7.4?? Albumin Level?? 05/30/22 13:01?? 3.4?? 11/29/21?? 3.8?? Bilirubin Total?? 05/30/22 13:01?? 0.2?? 11/29/21?? 0.4? Testing?? LATEST RESULTS?? Beta hCG Qnt?? 05/30/22 13:01?? 1? Electronically Signed on 05/30/22 05:17 PM Vinnie Montenegro MD Electronically Signed on 05/30/22 08:39 PM Vinnie Montenegro MD Emergency department Discharge instructions * Vinnie Montenegro MD: PERFORM Event Display: ED Discharge Information Authored Date: [id number] HERO YEPEZ :1990 Age:31 years Sex:Female Visit Date:05/30/2022 Primary Care Physician: Yariel Ferreira DO Discharge Instructions We would like to thank you for allowing us to assist you with your healthcare needs. The following includes patient education materials and information regarding your injury/illness. Diagnosis from Today's Visit Osteomyelitis Discharge Vitals Temperature??(Temporal Artery) 97.9 ??F (36.6 ??C) Heart Rate??(Peripheral) 70 Respiratory Rate?? 20 Blood Pressure?? 119/66?? Height?? 61.02 in (155.000 cm) Weight??(Estimated) 178.61 lb (81.00 kg) Allergies FLUoxetine mirtazapine What to Do Next Instructions from Your Care Team Come immediately back to the ER with any worsening symptoms. You Need to Schedule the Following Appointments Follow Up with??Yariel Ferreira DO When:??Within 1 month Where: [address] [place] [phone] You were treated today on an emergency basis; it may be warner to contact your primary care provider to notify them of your visit today. You may have been referred to your regular doctor or a specialist, please follow up as instructed. If your condition worsens or you can't get in to see the doctor, contact the Emergency Department. Medications What How Much When Why Instructions Next Dose New acetaminophen-codeine (!- Tylenol with Codeine #3 oral tablet) 1 tab Oral (given by mouth) Every 4 hours as needed for as needed for pain Osteomyelitis Printed Prescription New clindamycin (clindamycin 150 mg oral capsule) 1 Capsules Oral (given by mouth) 3 times a day Osteomyelitis Duration: 14 Days Pickup at [facility] Unchanged ARIPiprazole (Abilify) Unchanged cloNIDine Unchanged levothyroxine Unchanged naproxen (naproxen 375 mg oral tablet) 1 tab Oral (given by mouth) 2 times a day as needed for pain, moderate Fracture of rib of left side Back contusion Ovarian cyst Unchanged PARoxetine (Paxil) 60 Milligrams Unchanged prazosin Pharmacy Information [facility]: [address], [place] [id number] [phone] Education Materials Osteomyelitis, Adult Bone infections, also called osteomyelitis,occur when bacteria or other germs get inside a bone. This can happen if you have an infection in another part of your body that spreads through your blood.It can also happen if you have a wound or a broken bone (fracture) that breaks the skin. A wound ora fracture can allow germs from your skin or from outside of your body to spread to your bone. Bone infections need to be treated quickly to: ? Prevent bone damage. ? Prevent the infection from spreading to other areas of your body. What are the causes? Most bone infections are caused by bacteria. The most common bacteria is one found on the skin (staphylococcus). Bone infections can also be caused by other germs, such as viruses and funguses. What increases the risk? You are more likely to develop this condition if: ? You recently had surgery, especially bone or joint surgery. ? You have had an injury, such as stepping on a nail or having a fracture that exposes bones through the skin. ? You have a long-term (chronic) disease, such as: ? Diabetes. ? HIV (human immunodeficiency virus). ? Rheumatoid arthritis. ? Sickle cell anemia. ? Kidney disease that requires dialysis. ? You have a condition that affects your body's defense system (immune system) or you take medicines that block or weaken the immune system. ? You have a condition that reduces your blood flow. ? You have an artificial joint. ? You have had a joint or bone repaired with plates or screws. ? You use IV drugs. What are the signs or symptoms? Symptoms vary depending on the type and location of your infection. Common symptoms of bone infections include: ? Fever and chills. ? Skin redness and warmth. ? Swelling. ? Pain and stiffness. ? Drainage of fluid or pus near the infection. How is this diagnosed? This condition may be diagnosed based on: ? Your symptoms and medical history. ? A physical exam. ? Tests, such as: ? A sample of tissue, fluid, or blood taken to be examined under a microscope. ? Pus or discharge swabbed from a wound for testing. This is to identify the type of germs and to determine what type of medicine will kill them. ? Blood tests. ? Imaging studies, including X-rays, MRI, CT scan, bone scan, or ultrasound. How is this treated? Treatment for this condition depends on the cause and type of infection. Antibiotic medicines are usually the first treatment for a bone infection. This may be done in a hospital at first. You may have to continue IV antibiotics at home or take antibiotics by mouth for several weeks after that. Other treatments may include surgery to: ? Remove or dying tissue from a bone. ? Remove an infected artificial joint. ? Remove infected plates or screws that were used to repair a broken bone. Follow these instructions at home: Medicines ? Take iioo-clw-zblhtrl and prescription medicines as told by your health care provider. Finish all antibiotic medicine even if you start to feel better. ? Follow instructions from your health care provider about how to take IV antibiotics at home. You may need to have a nurse come to your home to give you the IV antibiotics. Managing pain, stiffness, and swelling If directed, put ice on the affected area. To do this: ? Put ice in a plastic bag. ? Place a towel between your skin and the bag. ? Leave the ice on for 20 minutes, 2???3 times a day. General instructions ? Ask your health care provider if you have any restrictions on your activities. ? Do not use any products that contain nicotine or tobacco, such as cigarettes, e- cigarettes, and chewing tobacco. If you need help quitting, ask your health care provider. ? Keep all follow-up visits as told by your health care provider. This is important. How is this prevented? Wash your hands often to stop the spread of germs. Wash your hands for at least 20 seconds with soap and water. If soap and water are not available, use hand information security. ? Keep any open areas, cuts, or wounds clean. Apply a clean bandage after cleaning the area. ? Check wounds frequently for signs of infections. Signs of infection include redness, swelling, warmth, pus, or a bad smell. ? Wear proper footwear to avoid injuries to the feet. Contact a health care provider if: ? You develop a fever or chills. ? You have redness, warmth, pain, or swelling that returns after treatment. Get help right away if: ? You have rapid breathing or you have trouble breathing. ? You have chest pain. ? You cannot drink fluids or make urine. ? The affected area swells, changes color, or turns blue. ? You have numbness or severe pain in the affected area. These symptoms may represent a serious problem that is an emergency. Do not wait to see if the symptoms will go away. Get medical help right away. Call your local emergency services (911 in the [place] Do not drive yourself to the hospital. Summary ? Bone infections, also called osteomyelitis,occur when bacteria or other germs get inside a bone. ? You are more likely to get this type of infection if you have a condition that lowers your ability to fight infections. You are also likely to get this condition if you take medicines that block or weaken the immune system. ? Most bone infections are caused by bacteria. They can also be caused by other germs, such as viruses and funguses. ? Treatment for this condition usually starts with taking antibiotics. Further treatment depends on the cause and type of infection. This information is not intended to replace advice given to you by your health care provider. Make sure you discuss any questions you have with your health care provider. Document Revised: 05/20/2020 Document Reviewed: 05/20/2020 [employer] Patient Education ?? 2021 [employer] Tests Performed Medications and Immunizations Administered Given morphine, 4 mg, IV Push morphine, 2 mg, IV Push NS bolus, 1000 mL, IV Piggyback Toradol, 15 mg, IV Push Toradol, 15 mg, IV Push Unasyn, IV Piggyback Lab Test Name Test Result Date/Time WBC 9.4 x10^3/mcL 05/30/2022 13:01 EDT RBC 4.2 x10^6/mcL 05/30/2022 13:01 EDT Hgb 12.3 g/dL 05/30/2022 13:01 EDT Hct 37.0 % 05/30/2022 13:01 EDT MCV 88.3 05/30/2022 13:01 EDT MCH 29.4 pg 05/30/2022 13:01 EDT MCHC 33.2 g/dL 05/30/2022 13:01 EDT RDW-CV 13.8 % 05/30/2022 13:01 EDT Platelets 411 x10^3/mcL 05/30/2022 13:01 EDT Neutro Auto 60.4 % 05/30/2022 13:01 EDT Lymph Auto 31.4 % 05/30/2022 13:01 EDT [place]ress Auto 4.0 % 05/30/2022 13:01 EDT Eos, Auto 3.2 % 05/30/2022 13:01 EDT Basophil Auto 0.7 % 05/30/2022 13:01 EDT Imm Gran Auto 0.3 % 05/30/2022 13:01 EDT Neutro Absolute 5.6 x10^3/mcL 05/30/2022 13:01 EDT Sodium Level 143 mmol/L 05/30/2022 13:01 EDT Potassium Level 3.7 mmol/L 05/30/2022 13:01 EDT Chloride Level 105 mmol/L 05/30/2022 13:01 EDT CO2 27 mmol/L 05/30/2022 13:01 EDT Alk Phos 51 unit/L 05/30/2022 13:01 EDT AST 25 unit/L 05/30/2022 13:01 EDT ALT 38 unit/L 05/30/2022 13:01 EDT BUN 5 mg/dL 05/30/2022 13:01 EDT Glucose Level 84 mg/dL 05/30/2022 13:01 EDT Creatinine Level 0.52 mg/dL 05/30/2022 13:01 EDT eGFR AA 127 05/30/2022 13:01 EDT eGFR Non-AA 127 05/30/2022 13:01 EDT Calcium Level 9.0 mg/dL 05/30/2022 13:01 EDT Protein Total 7.3 g/dL 05/30/2022 13:01 EDT Albumin Level 3.4 g/dL 05/30/2022 13:01 EDT Bilirubin Total 0.2 mg/dL 05/30/2022 13:01 EDT Beta hCG Qnt 1 mIntlUnit/mL 05/30/2022 13:01 EDT 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 Signature Patient Name:HERO YEPEZ I have received this information and my questions have been answered. 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 Name: 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 Signature: Relationship to Patient: Witness Name/Signature: Date: Electronically Signed on: 05/30/2022 17:16 EDTSigned by:[email or web address] Emergency department Note * Deedee Phelps H: PERFORM Event Display: ED Notes Authored Date: [id number] Patient Care team information Care Team Personnel Name: Yariel Ferreira DO Position: No Access Member Role: Primary Care Physician Address: Address: [address] [place] [id number] Name: Vinnie Montenegro MD Position: Physician Member Role: ED Physician Address: Address: [facility] [address] [place] [address] [place], [place] [address] Name: Jessica Valentin Position: Nurse Member Role: ED Nurse Care Team Related Persons Name: REJI YEPEZ Address: [address] [phone] Name: AJ YEPEZ
--- OUTSIDE RECORDS SUMMARY | 2023-09-10 18:33 | XMS_ITS | Continuity of Care Document ---
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 ? If your wrist pain continues, it is important to tell your health care provider. ? You may need to wear a splint or an elastic wrap for a short period of time. ? Return to your normal activities as told by your health care provider. Ask your health care provider what activities are safe for you. This information is not intended to replace advice given to you by your health care provider. Make sure you discuss any questions you have with your health care provider. Document Revised: 01/22/2020 Document Reviewed: 01/22/2020 Elsevier Patient Education ?? 2022 [employer] Inc[employer] Tests Performed Medications and Immunizations Administered Given ibuprofen, 800 mg, Oral Patient/Pals Specialist Signature Patient Name:JEWEL YEPEZRA Palencia I have received this information and my questions have been answered. Patient/Pals Specialist Name: Patient/Pals Specialist Signature: Relationship to Patient: Witness Name/Signature: Date: Electronically Signed on: 10/04/2022 13:28 EDTSigned by:JAN Emergency department Note * Tania Garcia: PERFORM Event Display: ED Notes Authored Date: [id number] Patient Care team information Care Team Personnel Name: Yariel Owens DO Position: No Access Member Role: Informed Provider Address: Address: [address] [place] [id number] Name: Hoa Graves Position: Nurse Member Role: ED Nurse Name: Aimee Rosas MD Position: Physician Member Role: ED Physician Address: Address: [address] [place] [address] Care Team Related Persons Name: REJI YEPEZ Address: Home [address] [place] [address] Name: AJ YEPEZ
--- OUTSIDE RECORDS SUMMARY | 2023-09-10 18:33 | XMS_ITS | Continuity of Care Document ---
Author Name Unknown Organization [facility] Address [address] [place] [address] Care Team Providers Care Release Coordinator Name Role Phone Yariel Owens Primary Care Physic reggie Encounter [facility] Date(s): 01/05/23 - 01/05/23 [facility] [address] [place] [address] Encounter Diagnosis Left ankle sprain(Discharge Diagnosis) - 01/05/23 Discharge Disposition: Home or Self Care Attending Physician: Byron Alvarez MD Admitting Physician: Byron Alvarez MD Allergies, Adverse Reactions, Alerts Substance Reaction Severity Status mirtazapine Unknown Active FLUoxetine Unknown Active Functional Status 01/05/23 Recent Travel History No recent travel Other exposure to Infectious Disease Non e Medications cloNIDine 0 Refill(s) Start Date: 05/30/22 Status: Ordered hydrOXYzine 0 Refill(s) Start Date: 10/04/22 Status: Ordered levothyroxine 0 Refill(s) Start Date: 05/30/22 Status: Ordered Paxil 60 mg =, 0 Refill(s) Start Date: 05/30/22 Status: Ordered prazosin 0 Refill(s) Start Date: 05/30/22 Status: Ordered Problem List No Known Problems Vital Signs Most recent to oldest [Reference Range]: 1 Temperature Temporal Artery [36-38 Deg C ] 36.1 Deg C (01/05/23 8:27 PM) Peripheral Pulse Rate [60-100 bpm] 96 bp m (01/05/23 8:27 PM) Respiratory Rate [12-24 br/min] 32 br/mi n *HI* (01/05/23 8:27 PM) Blood Pressure [90-140/60-90 mmHg] 118/8 6mmHg (01/05/23 8:27 PM) Mean Arterial Pressure, Cuff [65-140 mmH g] 97 mmHg (01/05/23 8:27 PM) Weight Dosing 90.70 kg (01/05/23 8:34 PM) Weight Estimated 90.70 kg (01/05/23 8:27 PM) Height/Length Dosing 154.000 cm (01/05/23 8:34 PM) Height/Length Estimated 154.000 cm (01/05/23 8:27 PM) Social History Social History Type Response Tobacco Current everyday tob acco user Tobacco Use:. 1 PPD per day. Sex Female Hospital Discharge Instructions Patient Education 01/05/2023 20:11:11 Ankle Sprain, Lnle-ku-Vsjd Ankle Sprain An ankle sprain is a stretch or tear in one of the tough tissues (ligaments) that connect the bonesin your ankle. An ankle sprain can happen when the ankle rolls outward (inversion sprain) or inward(eversion sprain). What are the causes? This condition is caused by rolling or twisting the ankle. What increases the risk? You are more likely to develop this condition if you play sports. What are the signs or symptoms? Symptoms of this condition include: ??? Pain in your ankle. ??? Swelling. ??? Bruising. This may happen right after you sprain your ankle or 1???2 days later. ??? Trouble standing or walking. How is this diagnosed? This condition is diagnosed with: ??? A physical exam. During the exam, your doctor will press on certain parts of your foot and ankle and try to move them in certain ways. ??? X-ray imaging. These may be taken to see how bad the sprain is and to check for broken bones. How is this treated? This condition may be treated with: ??? A brace or splint. This is used to keep the ankle from moving until it heals. ??? An elastic bandage. This is used to support the ankle. ??? Crutches. ??? Pain medicine. ??? Surgery. This may be needed if the sprain is very bad. ??? Physical therapy. This may help to improve movement in the ankle. Follow these instructions at home: If you have a brace or a splint: ??? Wear the brace or splint as told by your doctor. Remove it only as told by your doctor. ??? Loosen the brace or splint if your toes: ??? Tingle. ??? Lose feeling (become numb). ??? Turn cold and blue. ??? Keep the brace or splint clean. ??? If the brace or splint is not waterproof: ??? Do not let it get wet. ??? Cover it with a watertight covering when you take a bath or a shower. If you have an elastic bandage (dressing): ??? Remove it to shower or bathe. ??? Try not to move your ankle much, but wiggle your toes from time to time. This helps to prevent swelling. ??? Adjust the dressing if it feels too tight. ??? Loosen the dressing if your foot: ??? Loses feeling. ??? Tingles. ??? Becomes cold and blue. Managing pain, stiffness, and swelling ??? Take efqt-ljd-gprxdjw and prescription medicines only as told by doctor. ??? For 2???3 days, keep your ankle raised (elevated) above the level of your heart. ??? If told, put ice on the injured area: ??? If you have a removable brace or splint, remove it as told by your doctor. ??? Put ice in a plastic bag. ??? Place a towel between your skin and the bag. ??? Leave the ice on for 20 minutes, 2???3 times a day. General instructions ??? Rest your ankle. ??? Do not use your injured leg to support your body weight until your doctor says that you can. Use crutches as told by your doctor. ??? Do not use any products that contain nicotine or tobacco, such as cigarettes, e-cigarettes, andchewing tobacco. If you need help quitting, ask your doctor. ??? Keep all follow-up visits as told by your doctor. Contact a doctor if: ??? Your bruises or swelling are quickly getting worse. ??? Your pain does not get better after you take medicine. Get help right away if: ??? You cannot feel your toes or foot. ??? Your foot or toes look blue. ??? You have very bad pain that gets worse. Summary ??? An ankle sprain is a stretch or tear in one of the tough tissues (ligaments) that connect the bones in your ankle. ??? This condition is caused by rolling or twisting the ankle. ??? Symptoms include pain, swelling, bruising, and trouble walking. ??? To help with pain and swelling, put ice on the injured ankle, raise your ankle above the level of your heart, and use an elastic bandage. Also, rest as told by your doctor. ??? Keep all follow-up visits as told by your doctor. This is important. This information is not intended to replace advice given to you by your health care provider. Make sure you discuss any questions you have with your health care provider. Document Revised: 04/28/2021 Document Reviewed: 04/28/2021 [employer] Patient Education ?? 2022 [employer]. Follow Up Care 01/05/2023 20:27:34 With:Follow up with Orthopedic Address: When:3 to 5 days Physician Emergency department Note * Byron Alvarez MD: PERFORM Event Display: ED Note Physician Authored Date: [id number] HERO YEPEZ :1990 Age:32 years Sex:Female Visit Date:01/05/2023 Primary Care Physician: Yariel Owens DO Basic Information Time Seen: yBron Alvarez MD / 01/05/2023 20:41 Chief Complaint Walking down stairs at [facility] and slipped and fell causing left leg to go backwards and twisting ankle. Did not take any pain meds prior to arrival. non- weight bearing History Of Present Illness: Patient slipped on a step injuring her??left ankle. ??Lateral swelling. ??Is not taking anything for it. ??Pain is severe. ??Unable to bear weight. ??Otherwise has been well. ??No prior injuries to that ankle. Physical Exam Vitals & Measurements T:??36.1?C ??(Temporal Artery)?? HR:??96??(Peripheral)?? RR:??32?? BP:??118/86?? SpO2:??100%?? HT:??154.000??cm?? WT:??90.70??kg??(Estimated)?? Pain Score:??10?? O2 Therapy:??Room air?? Tearful and in pain. ??Obese??well-appearing.?? Left ankle has lateral swelling. ??Normal sensationand pulses. ??No knee swelling??or tenderness.?? Skin is intact. ??No cardiorespiratory distress. Medical Decision Making: X-ray as read by me shows no fracture of the ankle but there may be some??joint space widening. ?? We will put her in a??padded??pressure splint nonweightbearing until she can see orthopedics. ?? Short leg??padded??Ortho-Glass splint applied by me Procedure No Qualifying Data Assessment/Plan 1.??Left ankle sprain??S93.402A Orders: Crutches, 01/05/23 21:10:00 EDT, Stop date 01/05/23 21:10:00 EDT, 01/05/23 21:10:00 EDT Discharge Patient, 01/05/23 21:10:00 EDT, Home Independently, Constant Indicator XR Ankle Complete 3+ Views Left, 01/05/23 20:53:00 EDT, Stat, Reason: injury, Transport Mode: Stretcher, Exam to be performed outside organization? Patient Education Ankle Sprain, Cogy-xf-Vswz Follow Up With When Contact Information Follow up with Orthopedic Within 3 to 5 days Additional Instructions: Medication Reconciliation Unchanged cloNIDine ?? hydrOXYzine ?? levothyroxine ?? PARoxetine (Paxil)60 Milligrams. ?? prazosin Problem List/Past Medical History Ongoing No chronic problems Historical No qualifying data Medication Administration Given acetaminophen, 1000 mg, Oral ibuprofen, 800 mg, Oral Allergies FLUoxetine mirtazapine Social History Alcohol Current, 1-2 times per year Electronic Cigarette/Vaping Electronic Cigarette Use: Use, within last 90 days. Use per Day: 26-50 Inhales/day. Substance Use Current, Marijuana, Daily Tobacco Current everyday tobacco user Tobacco Use:. 1 PPD per day. Electronically Signed on 01/05/23 09:12 PM Byron Alvarez MD Emergency department Discharge instructions * Byron Alvarez MD: PERFORM Event Display: ED Discharge Information Authored Date: [id number] HERO YEPEZ :1990 Age:32 years Sex:Female Visit Date:01/05/2023 Primary Care Physician: Yariel Owens DO Discharge Instructions We would like to thank you for allowing us to assist you with your healthcare needs. The following includes patient education materials and information regarding your injury/illness. Diagnosis from Today's Visit Left ankle sprain Discharge Vitals Temperature??(Temporal Artery) 97.0 ??F (36.1 ??C) Heart Rate??(Peripheral) 96 Respiratory Rate?? 32 Blood Pressure?? 118/86?? Height?? 60.63 in (154.000 cm) Weight??(Estimated) 199.99 lb (90.70 kg) Allergies FLUoxetine mirtazapine What to Do Next You Need to Schedule the Following Appointments Follow Up with??Follow up with Orthopedic When:??Within 3 to 5 days You were treated today on an emergency [...] Emergency Department. Medications What How Much When Instructions Next Dose Unchanged cloNIDine Unchanged hydrOXYzine Unchanged levothyroxine Unchanged PARoxetine (Paxil) 60 Milligrams Unchanged prazosin [employer] Ankle Sprain An ankle sprain is a stretch or tear in one of the tough tissues (ligaments) that connect the bonesin your ankle. An ankle sprain can happen when the ankle rolls outward (inversion sprain) or inward(eversion sprain). What are the causes? This condition is caused by rolling or twisting the ankle. What increases the risk? You are more likely to develop this condition if you play sports. What are the signs or symptoms? Symptoms of this condition include: ? Pain in your ankle. ? Swelling. ? Bruising. This may happen right after you sprain your ankle or 1???2 days later. ? Trouble standing or walking. How is this diagnosed? This condition is diagnosed with: ? A physical exam. During the exam, your doctor will press on certain parts of your foot and ankle and try to move them in certain ways. ? X-ray imaging. These may be taken to see how bad the sprain is and to check for broken bones. How is this treated? This condition may be treated with: ? A brace or splint. This is used to keep the ankle from moving until it heals. ? An elastic bandage. This is used to support the ankle. ? Crutches. ? Pain medicine. ? Surgery. This may be needed if the sprain is very bad. ? Physical therapy. This may help to improve movement in the ankle. Follow these instructions at home: If you have a brace or a splint: ? Wear the brace or splint as told by your doctor. Remove it only as told by your doctor. ? Loosen the brace or splint if your toes: ? Tingle. ? Lose feeling (become numb). ? Turn cold and blue. ? Keep the brace or splint clean. ? If the brace or splint is not waterproof: ? Do not let it get wet. ? Cover it with a watertight covering when you take a bath or a shower. If you have an elastic bandage (dressing): ? Remove it to shower or bathe. ? Try not to move your ankle much, but wiggle your toes from time to time. This helps to prevent swelling. ? Adjust the dressing if it feels too tight. ? Loosen the dressing if your foot: ? Loses feeling. ? Tingles. ? Becomes cold and blue. Managing pain, stiffness, and swelling ? Take ihzh-zvp-orhdiwq and prescription medicines only as told by doctor. ? For 2???3 days, keep your ankle raised (elevated) above the level of your heart. ? If told, put ice on the injured area: ? If you have a removable brace or splint, remove it as told by your doctor. ? Put ice in a plastic bag. ? Place a towel between your skin and the bag. ? Leave the ice on for 20 minutes, 2???3 times a day. General instructions ? Rest your ankle. ? Do not use your injured leg to support your body weight until your doctor says that you can. Use crutches as told by your doctor. ? Do not use any products that contain nicotine or tobacco, such as cigarettes, e- cigarettes, and chewing tobacco. If you need help quitting, ask your doctor. ? Keep all follow-up visits as told by your doctor. Contact a doctor if: ? Your bruises or swelling are quickly getting worse. ? Your pain does not get better after you take medicine. Get help right away if: ? You cannot feel your toes or foot. ? Your foot or toes look blue. ? You have very bad pain that gets worse. Summary ? An ankle sprain is a stretch or tear in one of the tough tissues (ligaments) that connect the bonesin your ankle. ? This condition is caused by rolling or twisting the ankle. ? Symptoms include pain, swelling, bruising, and trouble walking. ? To help with pain and swelling, put ice on the injured ankle, raise your ankle above the level of your heart, and use an elastic bandage. Also, rest as told by your doctor. ? Keep all follow-up visits as told by your doctor. This is important. This information is not intended to replace advice given to you by your health care provider. Make sure you discuss any questions you have with your health care provider. Document Revised: 04/28/2021 Document Reviewed: 04/28/2021 Elsevier Patient Education ?? 2022 Elsevier Inc. Tests Performed Medications and Immunizations Administered Given acetaminophen, 1000 mg, Oral ibuprofen, 800 mg, Oral Patient/Pocket Assembler Signature Patient Name:HERO YEPEZ I have received this information and my questions have been answered. Patient/Pocket Assembler Name: Patient/Pocket Assembler Signature: Relationship to Patient: Witness Name/Signature: Date: Electronically Signed on: 01/05/2023 21:11 EDTSigned by:RENNY Emergency department Note * Tania Garcia: PERFORM Event Display: ED Notes Authored Date: [id number] Patient Care team information Care Team Personnel Name: Yariel Owens DO Position: No Access Member Role: Informed Provider Address: Address: [address] [place] [phone] [place] Name: Sophia Vivas RN Position: Nurse Member Role: ED Nurse Name: Byron Alvarez MD Position: Physician Member Role: ED Physician Address: Address: [id number] [place] [address] Care Team Related Persons Name: REJI YEPEZ Address: [address] [address] Name: AJ YEPEZ Address: [address] [id number]
--- OUTSIDE RECORDS SUMMARY | 2023-09-10 18:33 | XMS_ITS | Continuity of Care Document ---
Author Name Unknown Organization [facility] Address [address] [place] [id number] Encounter LTTL_LA FIN NBR [id number] Date(s): 02/21/22 - 02/21/[address] [id number] [place] Encounter Diagnosis Constipation(Discharge Diagnosis) - 02/21/22 Discharge Disposition: Home f/u Internal Provider Attending Physician: Thierry Camarena MD Admitting Physician: Thierry Camarena MD Allergies, Adverse Reactions, Alerts Substance Reaction Severity Status Remeron Unknown Active PROzac Unknown Active Functional Status 02/21/22 Family Member Travel History No recent t ravel Recent Travel History No recent travel Other exposure to Infectious Disease Non e Medications busPIRone 5 mg oral tablet 0 Refill(s) Start Date: 02/21/22 Status: Ordered clonazePAM 0.5 mg oral tablet 0 Refill(s) Start Date: 02/21/22 Status: Ordered dicyclomine 20 mg oral tablet 0 Refill(s) Start Date: 02/21/22 Status: Ordered levothyroxine 150 mcg (0.15 mg) oral tablet 0 Refill(s) Start Date: 02/21/22 Status: Ordered MiraLax oral powder for reconstitution 17 g, Oral, Daily, dissolve in water before taking, # 255 g, 0 Refill(s) Start Date: 02/21/22 Status: Ordered PARoxetine 20 mg oral tablet 0 Refill(s) Start Date: 02/21/22 Status: Ordered prazosin 2 mg oral capsule 0 Refill(s) Start Date: 02/21/22 Status: Ordered Results Laboratory List Name Date CBC w/ Diff 02/21/22 Comprehensive Metabolic Panel (CMP) 02/21 Lipase Level 02/21/22 Automated Diff 02/21/22 Test Urine Qual 02/21/22 Urinalysis Microscopic 02/21/22 Urinalysis with Microscopic if Indicated 02/21/22 Most recent to oldest [Reference Range]: 1 WBC [4.8-10.8 K/mcL] 9.5 K/mcL (02/21/22 5:35 PM) RBC [4.20-6.10 Million/mcL] 4.41 Million /mcL (02/21/22 5:35 PM) Neutro Auto [42.2-75.2 %] 51.7 % (02/21/22 5:35 PM) Lymph Auto [20.5-51.1 %] 37.5 % (02/21/22 5:35 PM) [place] Auto [1.7-9.3 %] 6.4 % (02/21/22 5:35 PM) Basophil Auto [0.0-0.8 %] 0.8 % (02/21/22 5:35 PM) BUN [8-26 mg/dL] 7 mg/dL *LOW* (02/21/22 5:35 PM) UA Color [Yellow] Yellow (02/21/22 4:15 PM) UA WBC [0-3] 0-3 (02/21/22 4:15 PM) Glucose Level [74-106 mg/dL] 80 mg/dL (02/21/22 5:35 PM) Potassium Level [3.5-5.1 mmol/L] 3.5 mmo l/L (02/21/22 5:35 PM) Baso Absolute [0.0-0.2 K/mcL] 0.1 K/mcL (02/21/22 5:35 PM) MCV [80.0-99.0 fL] 89.1 fL (02/21/22 5:35 PM) UA Urobilinogen [0.2] 0.2 (02/21/22 4:15 PM) UA Bili [Negative] Negative (02/21/22 4:15 PM) UA Ketones [Negative] Negative (02/21/22 4:15 PM) AST [15-41 IntlUnit/L] 17 IntlUnit/L (02/21/22 5:35 PM) ALT [14-54 IntlUnit/L] 15 IntlUnit/L (02/21/22 5:35 PM) MCHC [32.0-36.0 g/dL] 32.6 g/dL (02/21/22 5:35 PM) Osmolality [275-295 mOsm/kg] 269 mOsm/kg *LOW* (02/21/22 5:35 PM) Sodium Level [134-143 mmol/L] 136 mmol/L (02/21/22 5:35 PM) UA RBC [0-3] 0-3 (02/21/22 4:15 PM) UA Leuk Est [Negative] Negative (02/21/22 4:15 PM) Lymph Absolute [1.2-3.4 K/mcL] 3.6 K/mcL *HI* (02/21/22 5:35 PM) UA Nitrite [Negative] Negative (02/21/22 4:15 PM) UA Glucose [Negative] Negative (02/21/22 4:15 PM) Hct [37.0-52.0 %] 39.3 % (02/21/22 5:35 PM) UA Bacteria [None Seen] 1+ *ABN* (02/21/22 4:15 PM) Lipase Level [18-51 unit/L] 41 unit/L (02/21/22 5:35 PM) Calcium Level [8.9-10.3 mg/dL] 8.9 mg/dL (02/21/22 5:35 PM) [place] Absolute [0.1-0.6 K/mcL] 0.6 K/mcL (02/21/22 5:35 PM) Albumin Level [3.5-5.0 g/dL] 3.7 g/dL (02/21/22 5:35 PM) Protein Total [6.5-8.1 g/dL] 7.2 g/dL (02/21/22 5:35 PM) UA Protein [Negative] Negative (02/21/22 4:15 PM) MCH [27.0-31.0 pg] 29.0 pg (02/21/22 5:35 PM) Neutro Absolute [1.4-6.5 K/mcL] 4.9 K/mc L (02/21/22 5:35 PM) Bilirubin Total [0.2-1.2 mg/dL] 0.5 mg/d L (02/21/22 5:35 PM) Hgb [12.0-18.0 g/dL] 12.8 g/dL (02/21/22 5:35 PM) Alk Phos [38-130 IntlUnit/L] 42 IntlUnit /L (02/21/22 5:35 PM) UA Blood [Negative] Trace *ABN* (02/21/22 4:15 PM) MPV [7.4-10.4 fL] 9.6 fL (02/21/22 5:35 PM) UA Spec Grav 1.025 *NA* (02/21/22 4:15 PM) Platelets [130-400 K/mcL] 323 K/mcL (02/21/22 5:35 PM) CO2 [22-32 mmol/L] 28 mmol/L (02/21/22 5:35 PM) Eos Absolute [0.0-0.2 K/mcL] 0.3 K/mcL *HI* (02/21/22 5:35 PM) UA Squam Epithelial [0-3] 10-25 *ABN* (02/21/22 4:15 PM) UA pH 6.50 *NA* (02/21/22 4:15 PM) eGFR Non-AA 130 *NA* (02/21/22 5:35 PM) eGFR AA 130 *NA* (02/21/22 5:35 PM) UA Appear [Clear] Turbid *ABN* (02/21/22 4:15 PM) Chloride Level [98-111 mmol/L] 101 mmol/ L (02/21/22 5:35 PM) RDW-CV [11.5-14.5 %] 15.7 % *HI* (02/21/22 5:35 PM) A/G Ratio 1.1 *NA* (02/21/22 5:35 PM) BUN/Creat Ratio [8.0-20.0] 14.9 (02/21/22 5:35 PM) Globulin 3.5 *NA* (02/21/22 5:35 PM) Imm Gran Absolute 0.03 *NA* (02/21/22 5:35 PM) Imm Gran Auto [0.0-0.5 %] 0.3 % (02/21/22 5:35 PM) UA Culture Ind?. [No] No (02/21/22 4:15 PM) Urine Srce Clean Catch (02/21/22 4:15 PM) Creatinine Level [0.44-1.00 mg/dL] 0.47 mg/dL (02/21/22 5:35 PM) Anion Gap [3.0-12.0] 7.0 (02/21/22 5:35 PM) Eos, Auto [0.00-3.00 %] 3.30 % *HI* (02/21/22 5:35 PM) U hCG Ql [Negative] Negative (02/21/22 4:15 PM) Radiology Reports * Exam Date Time Procedure Performing Provider Status 02/21/22 6:53 PM XR Abdomen 2 Views [email or web address] ed; Auth (Verified) Notes: (XR Abdomen 2 Views) Reason For Exam: pain XR Abdomen 2 Views EXAM DESCRIPTION: XR Abdomen 2 Views 02/21/2022 INDICATION: PAIN COMPARISON: None IMPRESSION: Normal bowel gas pattern. No bowel dilatation to suggest obstruction or ileus. No evidence of free intraperitoneal air. No abnormal calcific densities The visualized lung bases are clear. JOB #: [id number] Final Signed by: Bo Douglas MD Signed (Electronic Signature): 02/21/2022 9:03 pm Vital Signs Most recent to oldest [Reference Range]: 1 Temperature Tympanic [36.6-37.9 Deg C] 3 6.0 Deg C *LOW* (02/21/22 4:09 PM) Peripheral Pulse Rate [60-100 bpm] 75 bp m (02/21/22 4:09 PM) Respiratory Rate [12-24 br/min] 17 br/mi n (02/21/22 4:09 PM) Blood Pressure [90-140/60-90 mmHg] 136/8 0mmHg (02/21/22 4:09 PM) Weight 81.65 kg (02/21/22 4:09 PM) Weight Dosing 81.65 kg (02/21/22 4:38 PM) Height 154.940 cm (02/21/22 4:09 PM) Height/Length Dosing 154.940 cm (02/21/22 4:38 PM) Body Mass Index 34.000 kg/m2 (02/21/22 4:09 PM) Social History Social History Type Response Tobacco Current everyday tob acco user Tobacco Use:. Sex Hospital Discharge Instructions Patient Education 02/21/2022 17:51:45 Constipation, Adult Constipation, Adult Constipation is when a person has fewer than three bowel movements in a week, has difficulty havinga bowel movement, or has stools (feces) that are dry, hard, or larger than normal. Constipation maybe caused by an underlying condition. It may become worse with age if a person takes certain medicines and does not take in enough fluids. Follow these instructions at home: Eating and drinking ??? Eat foods that have a lot of fiber, such as beans, whole grains, and fresh fruits and vegetables. ??? Limit foods that are low in fiber and high in fat and processed sugars, such as fried or sweet foods. These include paraguayan fries, hamburgers, cookies, candies, and soda. ??? Drink enough fluid to keep your urine pale yellow. General instructions ??? Exercise regularly or as told by your health care provider. Try to do 150 minutes of moderate exercise each week. ??? Use the bathroom when you have the urge to go. Do not hold it in. ??? Take dldw-vjh-kvgkhpt and prescription medicines only as told by your health care provider. This includes any fiber supplements. ??? During bowel movements: ??? Practice deep breathing while relaxing the lower abdomen. ??? Practice pelvic floor relaxation. ??? Watch your condition for any changes. Let your health care provider know about them. ??? Keep all follow-up visits as told by your health care provider. This is important. Contact a health care provider if: ??? You have pain that gets worse. ??? You have a fever. ??? You do not have a bowel movement after 4 days. ??? You vomit. ??? You are not hungry or you lose weight. ??? You are bleeding from the opening between the buttocks (anus). ??? You have thin, pencil-like stools. Get help right away if: ??? You have a fever and your symptoms suddenly get worse. ??? You leak stool or have blood in your stool. ??? Your abdomen is bloated. ??? You have severe pain in your abdomen. ??? You feel dizzy or you faint. Summary ??? Constipation is when a person has fewer than three bowel movements in a week, has difficulty having a bowel movement, or has stools (feces) that are dry, hard, or larger than normal. ??? Eat foods that have a lot of fiber, such as beans, whole grains, and fresh fruits and vegetables. ??? Drink enough fluid to keep your urine pale yellow. ??? Take bspc-xlu-xnkdtsq and prescription medicines only as told by your health care provider. This includes any fiber supplements. This information is not intended to replace advice given to you by your health care provider. Make sure you discuss any questions you have with your health care provider. Document Revised: 01/21/2020 Document Reviewed: 01/21/2020 [employer] Patient Education ?? 2021 [employer] Follow Up Care 02/21/2022 16:09:35 With:Follow up with primary care provider Address: When:1 to 2 weeks Physician Emergency department Note * ARIELA Melo: PERFORM Event Display: ED Note Physician Authored Date: [id number] HEOR YEPEZ :1990 Age:31 years Sex:Female Visit Date:02/21/2022 Basic Information Time Seen: ARIELA Melo / 02/21/2022 16:20 Chief Complaint Seen on & at [facility] - CT ??& US performed . DX; Ruptured Cyst . presents here for abd discomfort ?? feels bloated & Inside hurts Passed stool last night & today. History Of Present Illness: Patient is a 31-year-old female presenting to the emergency department for abdominal pain.?? Has had multiple ER visits at [facility] last week had a ultrasound and a CT scan, was diagnosed with a possibleruptured ovarian cyst and enteritis.?? She was constipated for few days but had a bowel movement yesterday and today continues to have generalized abdominal pain with bloating.?? No fevers or chills.?? No nausea or vomiting.?? Has been taking Tylenol and ibuprofen with no relief in pain.?? Denies any bloody or black stools. Review of Systems: Constitutional:?No??fevers,?No??chills,?No??sweats ENT:?No??ear pain,?No??nasal congestion,?No??sore throat Respiratory:?No??shortness of breath,?No??cough Cardiovascular:?No??Chest pain Gastrointestinal:?Nonausea,?No??vomiting,?No??diarrhea,??NoAbdominal pain Musculoskeletal:??No??back pain,??No??neck pain,??No??joint pain Integumentary:?No??rash Physical Exam Vitals & Measurements T:??36.0?C ??(Tympanic)?? HR:??75??(Peripheral)?? RR:??17?? BP:??136/80?? SpO2:??100%?? HT:??154.940??cm?? WT:??81.65??kg?? BMI:??34.000?? GENERAL: Awake and alert. No acute distress ?? CARDIOVASCULAR: Regular rate and rhythm, no murmur no rub ?? LUNGS: No respiratory distress. Chest nontender. Normal breath sounds. No wheezing or crackles ?? ABDOMEN: Abdomen soft?? Diffuse abdominal tenderness.?? nondistended active bowel sounds. No CVA/flank tenderness ?? NEUROLOGIC: Alert and oriented x4. ?? SKIN: Color normal. ??Warm dry intact. No Rash ?? Procedure No Qualifying Data Assessment/Plan 1.??Constipation??K59.00 Labs are overall unremarkable. ??Plain film x-ray of the abdomen??shows moderate stool burden??and normal gas pattern.?? We will have her start MiraLAX daily. ??Follow-up with primary care provider already scheduled for tomorrow. ??Return to ER for any worsening or changes.?? Patient states understanding agrees with above plan. Ordered: MiraLax oral powder for reconstitution, 17 g, Oral, Daily, dissolve in water before taking, # 255 g, 0 Refill(s) ?? Orders: XR Abdomen 2 Views, 02/21/22 18:10:00 EST, Stat, Reason: pain, Transport Mode: Ambulatory Patient Education Constipation, Adult Follow Up With When Contact Information Follow up with primary care provider Within 1 to 2 weeks Additional Instructions: Medication Reconciliation New Prescription polyethylene glycol 3350 (MiraLax oral powder for reconstitution)17 Gram Oral (given by mouth) every day. dissolve in water before taking. Refills: 0. ?? Unchanged busPIRone (busPIRone 5 mg oral tablet) ?? clonazePAM (clonazePAM 0.5 mg oral tablet) ?? dicyclomine (dicyclomine 20 mg oral tablet) ?? levothyroxine (levothyroxine 150 mcg (0.15 mg) oral tablet) ?? PARoxetine (PARoxetine 20 mg oral tablet) ?? prazosin (prazosin 2 mg oral capsule) Problem List/Past Medical History Ongoing No qualifying data Historical No qualifying data Medication Administration Given Toradol, 10 mg, Oral Allergies PROzac Remeron Social History Electronic Cigarette/Vaping Electronic Cigarette Use: Never. Substance Use Marijuana Tobacco Current everyday tobacco user Tobacco Use:. Lab Results CBC and Differential?? LATEST RESULTS?? WBC?? 02/21/22 17:35?? 9.5?? RBC?? 02/21/22 17:35?? 4.41?? Hgb?? 02/21/22 17:35?? 12.8?? Hct?? 02/21/22 17:35?? 39.3?? MCV?? 02/21/22 17:35?? 89.1?? MCH?? 02/21/22 17:35?? 29.0?? MCHC?? 02/21/22 17:35?? 32.6?? RDW-CV?? 02/21/22 17:35?? 15.7 ??High?? Platelets?? 02/21/22 17:35?? 323?? MPV?? 02/21/22 17:35?? 9.6?? Neutro Auto?? 02/21/22 17:35?? 51.7?? Lymph Auto?? 02/21/22 17:35?? 37.5?? [place] Auto?? 02/21/22 17:35?? 6.4?? Eos, Auto?? 02/21/22 17:35?? 3.30 ??High?? Basophil Auto?? 02/21/22 17:35?? 0.8?? Imm Gran Auto?? 02/21/22 17:35?? 0.3?? Neutro Absolute?? 02/21/22 17:35?? 4.9?? Lymph Absolute?? 02/21/22 17:35?? 3.6 ??High?? [place] Absolute?? 02/21/22 17:35?? 0.6?? Eos Absolute?? 02/21/22 17:35?? 0.3 ??High?? Baso Absolute?? 02/21/22 17:35?? 0.1?? Imm Gran Absolute?? 02/21/22 17:35?? 0.03? Routine Chemistry?? LATEST RESULTS?? Sodium Level?? 02/21/22 17:35?? 136?? Potassium Level?? 02/21/22 17:35?? 3.5?? Chloride Level?? 02/21/22 17:35?? 101?? CO2?? 02/21/22 17:35?? 28?? Alk Phos?? 02/21/22 17:35?? 42?? AST?? 02/21/22 17:35?? 17?? ALT?? 02/21/22 17:35?? 15?? BUN?? 02/21/22 17:35?? 7 ??Low?? Glucose Level?? 02/21/22 17:35?? 80?? Creatinine Level?? 02/21/22 17:35?? 0.47?? BUN/Creat Ratio?? 02/21/22 17:35?? 14.9?? eGFR AA?? 02/21/22 17:35?? 130?? eGFR Non-AA?? 02/21/22 17:35?? 130?? Calcium Level?? 02/21/22 17:35?? 8.9?? Protein Total?? 02/21/22 17:35?? 7.2?? Albumin Level?? 02/21/22 17:35?? 3.7?? Globulin?? 02/21/22 17:35?? 3.5?? A/G Ratio?? 02/21/22 17:35?? 1.1?? Bilirubin Total?? 02/21/22 17:35?? 0.5?? Anion Gap?? 02/21/22 17:35?? 7.0?? Lipase Level?? 02/21/22 17:35?? 41?? Osmolality?? 02/21/22 17:35?? 269 ??Low? Testing?? LATEST RESULTS?? U hCG Ql?? 02/21/22 16:15?? Negative? UA Macroscopic?? LATEST RESULTS?? Urine Srce?? 02/21/22 16:15?? Clean Catch?? UA Color?? 02/21/22 16:15?? Yellow?? UA Appear?? 02/21/22 16:15?? Turbid Abnormal?? UA Glucose?? 02/21/22 16:15?? Negative?? UA Bili?? 02/21/22 16:15?? Negative?? UA Ketones?? 02/21/22 16:15?? Negative?? UA Spec Grav?? 02/21/22 16:15?? 1.025?? UA Blood?? 02/21/22 16:15?? Trace Abnormal?? UA pH?? 02/21/22 16:15?? 6.50?? UA Protein?? 02/21/22 16:15?? Negative?? UA Urobilinogen?? 02/21/22 16:15?? 0.2?? UA Nitrite?? 02/21/22 16:15?? Negative?? UA Leuk Est?? 02/21/22 16:15?? Negative?? UA Culture Ind?.?? 02/21/22 16:15?? No? UA Microscopic?? LATEST RESULTS?? UA WBC?? 02/21/22 16:15?? 0-3?? UA RBC?? 02/21/22 16:15?? 0-3?? UA Squam Epithelial?? 02/21/22 16:15?? 10-25 Abnormal?? UA Bacteria?? 02/21/22 16:15?? 1+ Abnormal? Electronically Signed on 02/21/22 07:22 PM ARIELA Melo Emergency department Discharge instructions * ARIELA Melo: PERFORM Event Display: ED Discharge Information Authored Date: [id number] HERO YEPEZ :1990 Age:31 years Sex:Female Visit Date:02/21/2022 Discharge Instructions We would like to thank you for allowing us to assist you with your healthcare needs. The following includes patient education materials and information regarding your injury/illness. Diagnosis from Today's Visit Constipation Discharge Vitals Temperature??(Tympanic) 96.8 ??F (36.0 ??C) Heart Rate??(Peripheral) 75 Respiratory Rate?? 17 Blood Pressure?? 136/80?? Height?? 61.00 in (154.940 cm) Weight?? 180.04 lb (81.65 kg) BMI?? 34.000 Allergies PROzac Remeron What to Do Next You Need to [...] Much When Why Instructions Next Dose New polyethylene glycol 3350 (MiraLax oral powder forreconstitution) 17 Gram Oral (given by mouth) Every day Constipation dissolve in water before taking ?? Printed Prescription Unchanged busPIRone (busPIRone 5 mg oral tablet) Unchanged clonazePAM (clonazePAM 0.5 mg oral tablet) Unchanged dicyclomine (dicyclomine 20 mg oral tablet) Unchanged levothyroxine (levothyroxine 150 mcg (0.15 mg) oral tablet) Unchanged PARoxetine (PARoxetine 20 mg oral tablet) Unchanged prazosin (prazosin 2 mg oral capsule) Education Materials Constipation, Adult Constipation is when a person has fewer than three bowel movements in a week, has difficulty havinga bowel movement, or has stools (feces) that are dry, hard, or larger than normal. Constipation maybe caused by an underlying condition. It may become worse with age if a person takes certain medicines and does not take in enough fluids. Follow these instructions at home: Eating and drinking ? Eat foods that have a lot of fiber, such as beans, whole grains, and fresh fruits and vegetables. ? Limit foods that are low in fiber and high in fat and processed sugars, such as fried or sweet foods. These include [place] fries, hamburgers, cookies, candies, and soda. ? Drink enough fluid to keep your urine pale yellow. General instructions ? Exercise regularly or as told by your health care provider. Try to do 150 minutes of moderate exercise each week. ? Use the bathroom when you have the urge to go. Do not hold it in. ? Take mktf-wfo-xpsdwih and prescription medicines only as told by your health care provider. This includes any fiber supplements. ? During bowel movements: ? Practice deep breathing while relaxing the lower abdomen. ? Practice pelvic floor relaxation. ? Watch your condition for any changes. Let your health care provider know about them. ? Keep all follow-up visits as told by your health care provider. This is important. Contact a health care provider if: ? You have pain that gets worse. ? You have a fever. ? You do not have a bowel movement after 4 days. ? You vomit. ? You are not hungry or you lose weight. ? You are bleeding from the opening between the buttocks (anus). ? You have thin, pencil-like stools. Get help right away if: ? You have a fever and your symptoms suddenly get worse. ? You leak stool or have blood in your stool. ? Your abdomen is bloated. ? You have severe pain in your abdomen. ? You feel dizzy or you faint. Summary ? Constipation is when a person has fewer than three bowel movements in a week, has difficulty havinga bowel movement, or has stools (feces) that are dry, hard, or larger than normal. ? Eat foods that have a lot of fiber, such as beans, whole grains, and fresh fruits and vegetables. ? Drink enough fluid to keep your urine pale yellow. ? Take bzuk-jse-qijeedw and prescription medicines only as told by your health care provider. This includes any fiber supplements. This information is not intended to replace advice given to you by your health care provider. Make sure you discuss any questions you have with your health care provider. Document Revised: 01/21/2020 Document Reviewed: 01/21/2020 [employer] Patient Education ?? 2021 [employer] Tests Performed Medications and Immunizations Administered Given Toradol, 10 mg, Oral Lab Test Name Test Result Date/Time WBC 9.5 K/mcL 02/21/2022 17:35 EST RBC 4.41 Million/mcL 02/21/2022 17:35 EST Hgb 12.8 g/dL 02/21/2022 17:35 EST Hct 39.3 % 02/21/2022 17:35 EST MCV 89.1 fL 02/21/2022 17:35 EST MCH 29.0 pg 02/21/2022 17:35 EST MCHC 32.6 g/dL 02/21/2022 17:35 EST RDW-CV 15.7 % 02/21/2022 17:35 EST Platelets 323 K/mcL 02/21/2022 17:35 EST MPV 9.6 fL 02/21/2022 17:35 EST Neutro Auto 51.7 % 02/21/2022 17:35 EST Lymph Auto 37.5 % 02/21/2022 17:35 EST [place] Auto 6.4 % 02/21/2022 17:35 EST Eos, Auto 3.30 % 02/21/2022 17:35 EST Basophil Auto 0.8 % 02/21/2022 17:35 EST Imm Gran Auto 0.3 % 02/21/2022 17:35 EST Neutro Absolute 4.9 K/mcL 02/21/2022 17:35 EST Lymph Absolute 3.6 K/mcL 02/21/2022 17:35 EST [place] Absolute 0.6 K/mcL 02/21/2022 17:35 EST Eos Absolute 0.3 K/mcL 02/21/2022 17:35 EST Baso Absolute 0.1 K/mcL 02/21/2022 17:35 EST Imm Gran Absolute 0.03 02/21/2022 17:35 EST Sodium Level 136 mmol/L 02/21/2022 17:35 EST Potassium Level 3.5 mmol/L 02/21/2022 17:35 EST Chloride Level 101 mmol/L 02/21/2022 17:35 EST CO2 28 mmol/L 02/21/2022 17:35 EST Alk Phos 42 IntlUnit/L 02/21/2022 17:35 EST AST 17 IntlUnit/L 02/21/2022 17:35 EST ALT 15 IntlUnit/L 02/21/2022 17:35 EST BUN 7 mg/dL 02/21/2022 17:35 EST Glucose Level 80 mg/dL 02/21/2022 17:35 EST Creatinine Level 0.47 mg/dL 02/21/2022 17:35 EST BUN/Creat Ratio 14.9 02/21/2022 17:35 EST eGFR AA 130 02/21/2022 17:35 EST eGFR Non-AA 130 02/21/2022 17:35 EST Calcium Level 8.9 mg/dL 02/21/2022 17:35 EST Protein Total 7.2 g/dL 02/21/2022 17:35 EST Albumin Level 3.7 g/dL 02/21/2022 17:35 EST Globulin 3.5 02/21/2022 17:35 EST A/G Ratio 1.1 02/21/2022 17:35 EST Bilirubin Total 0.5 mg/dL 02/21/2022 17:35 EST Anion Gap 7.0 02/21/2022 17:35 EST Lipase Level 41 unit/L 02/21/2022 17:35 EST Osmolality 269 mOsm/kg 02/21/2022 17:35 EST U hCG Ql Negative 02/21/2022 16:15 EST Urine Srce Clean Catch 02/21/2022 16:15 EST UA Color YELLOW. 02/21/2022 16:15 EST UA Appear TURBID. 02/21/2022 16:15 EST UA Glucose NEGATIVE 02/21/2022 16:15 EST UA Bili NEGATIVE 02/21/2022 16:15 EST UA Ketones NEGATIVE 02/21/2022 16:15 EST UA Spec Grav 1.025 02/21/2022 16:15 EST UA Blood TRACE 02/21/2022 16:15 EST UA pH 6.50 02/21/2022 16:15 EST UA Protein NEGATIVE 02/21/2022 16:15 EST UA Urobilinogen 0.2 02/21/2022 16:15 EST UA Nitrite NEGATIVE 02/21/2022 16:15 EST UA Leuk Est NEGATIVE 02/21/2022 16:15 EST UA Culture Ind?. No 02/21/2022 16:15 EST UA WBC 0-3 02/21/2022 16:15 EST UA RBC 0-3 02/21/2022 16:15 EST UA Squam Epithelial 10-25 02/21/2022 16:15 EST UA Bacteria 1+ 02/21/2022 16:15 EST Patient/Senior Partner Signature Patient Name:HERO YEPEZ I have received this information and my questions have been answered. Patient/Senior Partner Name: Patient/Senior Partner Signature: Relationship to Patient: Witness Name/Signature: Date: Electronically Signed on: 02/21/2022 18:52 ESTSigned by:AL XR Abdomen 2 Views * Bo Douglas MD: VERIFY, VERIFY Event Display: Report EXAM DESCRIPTION: XR Abdomen 2 Views 02/21/2022 INDICATION: PAIN COMPARISON: None IMPRESSION: Normal bowel gas pattern. No bowel dilatation to suggest obstruction or ileus. No evidence of free intraperitoneal air. No abnormal calcific densities The visualized lung bases are clear. JOB #: [id number] Final Signed by: Bo Douglas MD Signed (Electronic Signature): 02/21/2022 9:03 pm
--- OUTSIDE RECORDS SUMMARY | 2023-09-10 18:33 | XMS_ITS | Continuity of Care Document ---
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 Name Role Phone Yariel Owens Primary Care Physic reggie Encounter [facility] Date(s): 12/13/22 - 12/13/[address] [phone] Encounter Diagnosis Chest pain(Discharge Diagnosis) - 12/13/22 Discharge Disposition: Home or Self Care Attending Physician: Andre George MD Admitting Physician: Andre George MD Allergies, Adverse Reactions, Alerts Substance Reaction Severity Status mirtazapine Unknown Active FLUoxetine Unknown Active Functional Status 12/13/22 Family Member Travel History No recent t ravel Recent Travel History No recent travel Other exposure to Infectious Disease Com munity exposure to COVID-19 within the last 14 days Medications Abilify 0 Refill(s) Start Date: 05/30/22 Status: Ordered cloNIDine 0 Refill(s) Start Date: 05/30/22 Status: Ordered hydrOXYzine 0 Refill(s) Start Date: 10/04/22 Status: Ordered levothyroxine 0 Refill(s) Start Date: 05/30/22 Status: Ordered naproxen 375 mg oral tablet 375 mg = 1 tab, Oral, BID, PRN pain, moderate, # 20 tab, 0 Refill(s), Pharmacy: [id number], 155, cm, 11/29/21 20:05:00 EDT, Height/Length Dosing, 81.65, kg, 11/29/21 20:05:00 EDT, Weight Dosing Start Date: 11/29/21 Status: Ordered Paxil 60 mg =, 0 Refill(s) Start Date: 05/30/22 Status: Ordered prazosin 0 Refill(s) Start Date: 05/30/22 Status: Ordered Problem List No Known Problems Vital Signs Most recent to oldest [Reference Range]: 1 Temperature Temporal Artery [36-38 Deg C ] 36.1 Deg C (12/13/22 5:16 AM) Peripheral Pulse Rate [60-100 bpm] 89 bp m (12/13/22 5:16 AM) Respiratory Rate [12-24 br/min] 16 br/mi n (12/13/22 5:16 AM) Blood Pressure [90-140/60-90 mmHg] 154/1 15mmHg *HI* (12/13/22 5:16 AM) Weight Dosing 90.72 kg (12/13/22 5:25 AM) Weight Estimated 90.72 kg (12/13/22 5:16 AM) Height/Length Dosing 154.940 cm (12/13/22 5:25 AM) Height/Length Estimated 154.940 cm (12/13/22 5:16 AM) Social History Social History Type Response Tobacco Current everyday tob acco user Tobacco Use:. 1 PPD per day. Sex Female Hospital Discharge Instructions Patient Education 12/13/2022 04:59:35 Nonspecific Chest Pain, Adult, Dkns-am-Wptm Nonspecific Chest Pain Chest pain can be caused by many different conditions. Some causes of chest pain can be life-threatening. These will require treatment right away. Serious causes of chest pain include: ??? Heart attack. ??? A tear in the body's main blood vessel. ??? Redness and swelling (inflammation) around your heart. ??? Blood clot in your lungs. Other causes of chest pain may not be so serious. These include: ??? Heartburn. ??? Anxiety or stress. ??? Damage to bones or muscles in your chest. ??? Lung infections. Chest pain can feel like: ??? Pain or discomfort in your chest. ??? Crushing, pressure, aching, or squeezing pain. ??? Burning or tingling. ??? Dull or sharp pain that is worse when you move, cough, or take a deep breath. ??? Pain or discomfort that is also felt in your back, neck, jaw, shoulder, or arm, or pain that spreads to any of these areas. It is hard to know whether your pain is caused by something that is serious or something that is not so serious. So it is important to see your doctor right away if you have chest pain. Follow these instructions at home: Medicines ??? Take nkgw-taj-ngrgbwf and prescription medicines only as told by your doctor. ??? If you were prescribed an antibiotic medicine, take it as told by your doctor. Do not stop taking the antibiotic even if you start to feel better. Lifestyle ??? Rest as told by your doctor. ??? Do not use any products that contain nicotine or tobacco, such as cigarettes, e-cigarettes, andchewing tobacco. If you need help quitting, ask your doctor. ??? Do not drink alcohol. ??? Make lifestyle changes as told by your doctor. These may include: ??? Getting regular exercise. Ask your doctor what activities are safe for you. ??? Eating a heart-healthy diet. A diet and ammunition specialist (dietitian) can help you to learn healthy eating options. ??? Staying at a healthy weight. ??? Treating diabetes or high blood pressure, if needed. ??? Lowering your stress. Activities such as yoga and relaxation techniques can help. General instructions ??? Pay attention to any changes in your symptoms. Tell your doctor about them or any new symptoms. ??? Avoid any activities that cause chest pain. ??? Keep all follow-up visits as told by your doctor. This is important. You may need more testing if your chest pain does not go away. Contact a doctor if: ??? Your chest pain does not go away. ??? You feel depressed. ??? You have a fever. Get help right away if: ??? Your chest pain is worse. ??? You have a cough that gets worse, or you cough up blood. ??? You have very bad (severe) pain in your belly (abdomen). ??? You pass out (faint). ??? You have either of these for no clear reason: ??? Sudden chest discomfort. ??? Sudden discomfort in your arms, back, neck, or jaw. ??? You have shortness of breath at any time. ??? You suddenly start to sweat, or your skin gets clammy. ??? You feel sick to your stomach (nauseous). ??? You throw up (vomit). ??? You suddenly feel lightheaded or dizzy. ??? You feel very weak or tired. ??? Your heart starts to beat fast, or it feels like it is skipping beats. These symptoms may be an emergency. Do not wait to see if the symptoms will go away. Get medical help right away. Call your local emergency services (911 in the [place] Do not drive yourself to the hospital. Summary ??? Chest pain can be caused by many different conditions. The cause may be serious and need treatment right away. If you have chest pain, see your doctor right away. ??? Follow your doctor's instructions for taking medicines and making lifestyle changes. ??? Keep all follow-up visits as told by your doctor. This includes visits for any further testing if your chest pain does not go away. ??? Be sure to know the signs that show that your condition has become worse. Get help right away if you have these symptoms. This information is not intended to replace advice given to you by your health care provider. Make sure you discuss any questions you have with your health care provider. Document Revised: 05/19/2021 Document Reviewed: 05/19/2021 [employer] Patient Education ?? 2022 [employer]. Follow Up Care 12/13/2022 05:16:11 With:Yariel Owens DO Address: [address] [place] [phone] When:1 to 2 weeks Physician Emergency department Note * Andre George MD: PERFORM Event Display: ED Note Physician Authored Date: [id number] HERO YEPEZ :1990 Age:32 years Sex:Female Visit Date:12/13/2022 Primary Care Physician: Yariel Owens DO Discharge Instructions We would like to thank you for allowing us to assist you with your healthcare needs. The following includes patient education materials and information regarding your injury/illness. Diagnosis from Today's Visit Chest pain Discharge Vitals Temperature??(Temporal Artery) 97.0 ??F (36.1 ??C) Heart Rate??(Peripheral) 89 Respiratory Rate?? 16 Blood Pressure?? 154/115?? Height?? 61.00 in (154.940 cm) Weight??(Estimated) 200.04 lb (90.72 kg) Allergies FLUoxetine mirtazapine What to Do Next Instructions from Your Care Team Today you were seen in the emergency department for your chest pain. We did a thorough exam, EKG aswell as an x-ray. Your results did not show a medical emergency, because of this you can be discharged to follow up with your primary care physician as soon as you are able to. Please return to the emergency department for any new or worsening symptoms. You Need to Schedule the Following Appointments Follow Up with??Yariel Owens DO When:??Within 1 to 2 weeks Where: [address] [place] [phone] You were treated today on an [...] How Much When Why Instructions Next Dose Unchanged ARIPiprazole (Abilify) Unchanged cloNIDine Unchanged hydrOXYzine Unchanged levothyroxine Unchanged naproxen (naproxen 375 mg oral tablet) 1 tab Oral (given by mouth) 2 times a day as needed for pain, moderate Fracture of rib of left side Back contusion Ovarian cyst Unchanged PARoxetine (Paxil) 60 Milligrams Unchanged prazosin Education Materials Nonspecific Chest Pain Chest pain can be caused by many different conditions. Some causes of chest pain can be life-threatening. These will require treatment right away. Serious causes of chest pain include: ? Heart attack. ? A tear in the body's main blood vessel. ? Redness and swelling (inflammation) around your heart. ? Blood clot in your lungs. Other causes of chest pain may not be so serious. These include: ? Heartburn. ? Anxiety or stress. ? Damage to bones or muscles in your chest. ? Lung infections. Chest pain can feel like: ? Pain or discomfort in your chest. ? Crushing, pressure, aching, or squeezing pain. ? Burning or tingling. ? Dull or sharp pain that is worse when you move, cough, or take a deep breath. ? Pain or discomfort that is also felt in your back, neck, jaw, shoulder, or arm, or pain that spreads to any of these areas. It is hard to know whether your pain is caused by something that is serious or something that is not so serious. So it is important to see your doctor right away if you have chest pain. Follow these instructions at home: Medicines ? Take wpqg-yig-iqkjawz and prescription medicines only as told by your doctor. ? If you were prescribed an antibiotic medicine, take it as told by your doctor. Do not stop taking the antibiotic even if you start to feel better. Lifestyle ? Rest as told by your doctor. ? Do not use any products that contain nicotine or tobacco, such as cigarettes, e- cigarettes, and chewing tobacco. If you need help quitting, ask your doctor. ? Do not drink alcohol. ? Make lifestyle changes as told by your doctor. These may include: ? Getting regular exercise. Ask your doctor what activities are safe for you. ? Eating a heart-healthy diet. A diet and ammunition specialist (dietitian) can help you to learn healthy eating options. ? Staying at a healthy weight. ? Treating diabetes or high blood pressure, if needed. ? Lowering your stress. Activities such as yoga and relaxation techniques can help. General instructions ? Pay attention to any changes in your symptoms. Tell your doctor about them or any new symptoms. ? Avoid any activities that cause chest pain. ? Keep all follow-up visits as told by your doctor. This is important. You may need more testing if your chest pain does not go away. Contact a doctor if: ? Your chest pain does not go away. ? You feel depressed. ? You have a fever. Get help right away if: ? Your chest pain is worse. ? You have a cough that gets worse, or you cough up blood. ? You have very bad (severe) pain in your belly (abdomen). ? You pass out (faint). ? You have either of these for no clear reason: ? Sudden chest discomfort. ? Sudden discomfort in your arms, back, neck, or jaw. ? You have shortness of breath at any time. ? You suddenly start to sweat, or your skin gets clammy. ? You feel sick to your stomach (nauseous). ? You throw up (vomit). ? You suddenly feel lightheaded or dizzy. ? You feel very weak or tired. ? Your heart starts to beat fast, or it feels like it is skipping beats. These symptoms may be an emergency. Do not wait to see if the symptoms will go away. Get medical help right away. Call your local emergency services (911 in the [place] Do not drive yourself to the hospital. Summary ? Chest pain can be caused by many different conditions. The cause may be serious and need treatment right away. If you have chest pain, see your doctor right away. ? Follow your doctor's instructions for taking medicines and making lifestyle changes. ? Keep all follow-up visits as told by your doctor. This includes visits for any further testing if your chest pain does not go away. ? Be sure to know the signs that show that your condition has become worse. Get help right away if you have these symptoms. This information is not intended to replace advice given to you by your health care provider. Make sure you discuss any questions you have with your health care provider. Document Revised: 05/19/2021 Document Reviewed: 05/19/2021 Else[employer] Patient Education ?? 2022 [employer] Tests Performed Medications and Immunizations Administered Given Toradol, 15 mg, IM Patient/Wooling Machine Operator Signature Patient Name:HERO YEPEZ I have received this information and my questions have been answered. 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 symtpoms are worse with exertion. history of anxiety. have been taking hydroxyzine when symptoms occur and its not helping History Of Present Illness: Patient is a 32-year-old female history of anxiety presenting with??chest pain. ??Patient states that last week she was presumed positive for COVID. ??At that time had mild shortness of breath as well as chest discomfort and states that it is continued??over this week as well. ??She describes a dull ache to the center of her chest that is nonradiating??it comes and goes but never goes away complet todd and is associate with mild shortness of breath.?? There is been no significant cough with this??no nausea no vomiting no lightheadedness or dizziness. ??She states that heating pad, hydroxyzine,??going into a quiet space to calm herself down??seems to improve her discomfort. ??Stress does seem to make it much worse.?? She states that she has had similar discomfort like this when she has had aanxiety attack however has never lasted this long. ??No significant??cardiac disease at a young ageno history of prolonged immobility,??blood clots,??hospitalizations, surgeries??patient is not on es trogen. ??She presents today for further evaluation. Review of Systems: ROS as per HPI Physical Exam Vitals & Measurements T:??36.1?C ??(Temporal Artery)?? HR:??89??(Peripheral)?? RR:??16?? BP:??154/115?? SpO2:??100%?? HT:??154.940??cm?? WT:??90.72??kg??(Estimated)?? O2 Therapy:??Room air?? General: Alert and oriented, No acute distress Eye: PERRL, EOMI, ??Normal ??conjunctiva HENT: Normocephalic, atraumatic Neck: Supple, non-tender, ?? Lungs: Clear to auscultation bilaterally, satting well on room air, no respiratory distress Heart: ??Normal ?? rate, ??Regular rhythm, ??No murmur Abdomen: Soft, non-tender, non-distended, ??Normal ??bowel sounds Musculoskeletal: ??Normal range of motion and strength, ??No tenderness, ?? Skin: Skin is warm and dry Neurologic: Awake, alert and oriented X4 Medical Decision Making: Patient is a 32-year-old female history of anxiety presenting with chest discomfort. ??Patient is well-appearing here vitals are all stable she is PERC negative, EKG without acute ischemic changes here. ??Given stable vitals satting 100%??she can likely be discharged follow-up as an outpatient. ??She will be given strict return precautions. ??She understands and agrees to this plan. Reexamination/Reevaluation Upon reevaluation patient feels improved. Assessment/Plan 1.??Chest pain??R07.9 Orders: XR Chest 1 View, 12/13/22 5:27:00 EDT, Stat, Reason: chest pain, Transport Mode: Stretcher, Exam beatrice performed outside organization? Medication Reconciliation Unchanged ARIPiprazole (Abilify) ?? cloNIDine ?? hydrOXYzine ?? levothyroxine ?? naproxen (naproxen 375 mg oral tablet)1 tab Oral (given by mouth) 2 times a day as needed pain, moderate. Refills: 0. ?? PARoxetine (Paxil)60 Milligrams. ?? prazosin Problem List/Past Medical History Ongoing No chronic problems Historical No qualifying data Medication Administration Given Toradol, 15 mg, IM Allergies FLUoxetine mirtazapine Social History Alcohol Current, 1-2 times per year Electronic Cigarette/Vaping Electronic Cigarette Use: Use, within last 90 days. Use per Day: 26-50 Inhales/day. Substance Use Current, Marijuana, Daily Tobacco Current everyday tobacco user Tobacco Use:. 1 PPD per day. Diagnostic Results ECG Sinus rhythm??at a rate of 73 normal axis normal intervals flattening T waves with no acute ischemic changes noted Diagnostic Study Interpretation: CXR -no acute disease of the chest as interpreted by myself Electronically Signed on 12/13/22 05:59 AM Andre George MD Emergency department Note * Tania Garcia: PERFORM Event Display: ED Notes Authored Date: [id number] Patient Care team information Care Team Personnel Name: Yariel Owens DO Position: No Access Member Role: Informed Provider Address: Address: [address] [place] [phone] Name: Reuben Eldridge RN Position: Nurse Member Role: Registered Nurse Name: Andre George MD Position: Physician Member Role: Attending Physician Address: Address: [address] [place] [phone] Care Team Related Persons Name: REJI YEPEZ Address: [address] [address] Name: AJ YEPEZ Address: Home [address] [place] [phone]
[2023-09-10 20:16] LABS: TSH (W/Ref FT4) 178.12 uIU/mL (0.36-3.74)
[2023-09-10 20:36] LABS: FREE T4 0.18 ng/dL (0.76-1.46)
== END 2023-09-10 18:32 | disposition home or self-care (01) ==
LOC: NCHCN 18:31
PROVIDERS: PCP Physician Assistant; Visit Provider Family Medicine
DX: E03.9 Hypothyroidism, unspecified (principal)
CPT/HCPCS: 84439; 84443

== ENCOUNTER 2023-11-05 20:01 | Outpatient (REF) | payer MEDICAID, SELFPAY ==
[2023-11-05 20:03] LABS: TSH 85.87 uIU/Ml (0.36-3.74)
--- OUTSIDE RECORDS SUMMARY | 2023-11-05 20:04 | XMS_ITS | Continuity of Care Document ---
Author Organization [facility] Address [address], [place] [address] Phone Support Name Relationship Address Phone AJ YEPEZ Spouse Unknown PCP, Not Given Primary Care Provider Unknown Unav ailable Woodrow Brown MD Emergency Provider [facility] [place] [address] Care Teams Patient Care Team Team Status: Active Member Role Status Dates Not Given PCP Primary Care Provider Active Visit Care Team Team Status: Inactive Member Role Status Dates Not Given PCP Primary Care Provider Active Start : September 20, 2023 End: September 20, 2023 Woodrow Brown MD Emergency Provider Active Start: September 20, 2023 End: September 20, 2023 Chief Complaint and Reason for Visit Chief Complaint Admit Date FACE/LEG LACS September 20, 2023 2:28p m Allergies, Adverse Reactions, Alerts Allergen Type Severity Reaction Last Updated Verified Status fluoxetine Allergy Unknown September 20, 2023 2:36pm Yes Active mirtazapine Allergy Unknown September 20, 2023 2:36pm Yes Active Social History Smoking Status Status Start Date End Date Date of Observa tion Smokes tobacco daily (finding) September 20, 2023 2:59pm Observation Status Date of Observation Not September 20, 2023 Observation Status Observation Response Date of Response Alcohol Use No September 20, 2023 2 :59pm Substance Use Yes September 20, 2023 2 :59pm substance use type marijuana September 19 2:59pm Smoking Status Current every day smoker September 2:59pm Additional Data Assigned Sex Female Problems Active Problems Medical Problem Onset Date Status Laceration Active Contusion Active Medications Medication Status Dose Units Route Directions Qty Days St art Date End Date Instructions Paroxetine Hcl Active 60 MG PO 2023 12:00am Levothyroxine Active MCG TABLET Sep 12:00am Hydroxyzine Hcl Active MG TABLET J dwain 2023 12:00am Clonidine Hcl Active MG TABLET León y 2023 12:00am Immunizations Immunization Event Date Not Given Reason Dose Number Border Inspector Lot Number Vaccine Information Statement (VIS) Detail Tdap September 20, 2023 [id number] Procedures Procedure Date Performed Status Knee 4 vw Min LT September 20, 2023 2:51pm completed Relevant Diagnostic Tests and/or Laboratory Data Diagnostic Imaging Reports Author Jolie Henriquez [facility] September 20, 2023 3:23pm Report Date/Time September 20, 2023 3:24p m [facility] RADIOLOGY REPORT PATIENT NAME: HERO YEPEZ [id number] DATE OF : 1990 ATTENDING/ER PHYSICIAN: ER/ATTENDING PHYSICIAN: Woodrow Brown MD PRIMARY CARE PHYS: Not Given ADMITTING PHYSICIAN: CONSULTING PHYSICIAN: PROCEDURE DATE: 09/20/23 REPORT STATUS: Signed DICTATING PHYSICIAN: Jolie Henriquez MD REASON FOR EXAM: L knee pain after fall PROCEDURE INFORMATION: Exam: XR Left Knee Exam date and time: 09/20/2023 3:01 PM Age: 32 years old Clinical indication: Pain; Knee; Left; Additional info: L knee pain after fall TECHNIQUE: Imaging protocol: Radiologic exam of the left knee. Views: 4 or more views. COMPARISON: No relevant prior studies available. FINDINGS: Bones/joints: Unremarkable. No joint effusion. Soft tissues: Mild soft tissue swelling. IMPRESSION: No evidence for acute bony injury. If clinical symptoms persist recommend followup film in 7-10 days. Electronically Signed By : Jolie Henriquez MD dd: 09/20/23 1523 09/20/23 1523 Vital Signs Vital Reading Result Reference Range Collection Date/Time Height 61 [in_i] September 20, 2023 2:32pm Weight 102.05 kg September 20, 2023 2:32pm Body Temperature 97.3 [degF] 97.6-99.6 September 19, 2 024 2:32pm Heart Rate 92 /min 60-100 September 20, 2023 2:32pm Respiratory rate 18 /min 12-24 September 19, 2 024 2:32pm Oxygen saturation by Pulse oximetry 97 % 88-10 0 September 20, 2023 2:32pm BP Systolic 138 mm[Hg] 100-140 September 20, 2023 2:32pm BP Diastolic 81 mm[Hg] 50-85 September 20, 2023 2:32pm Advance Directives Advance Directive Response Recorded Date/ Time Does patient have an Advance Directive? No September 20, 2023 3:11pm Does patient have a COLST form? No September 20, 2023 3:11pm Insurance Providers Guarantor HERO YEPEZ Address [address] [place], [place] [address] [place] [address] Contact Info. Home Phone: Payer Policy Id Coverage Id Subscriber's Name Subscriber Id Effective Date Expiration Date [employer] [id number] HERO YEPEZ [id number] Encounters Encounter Location(s) Arrival/Admit Date Discharge/Depart Date Provider(s) Departed Emergency [facility]-Emergency Department September 20, 2023 2:28pm September 20, 2023 3:50pm null Functional Status Observation Response Date Recorded Living Situation Home September 20, 2023 3:49pm Plan of Treatment Future Tests Future scheduled test information is unavailable Pending Tests Pending diagnostic test information is unavailable Future Visits Future appointment information is unavailable Referrals to Other Providers Reason for Referral Referral Start Date Provider Provider Contact Information Provider Address Not Given Future Procedures Future procedure information is unavailable Future Medications Future medication information is unavailable Patient Instructions Instruction Admit Date Minor Contusion ED Wound Care ED Laceration Repair With Glue ED September 20, 2023 2:28pm Hospital Discharge Instructions Additional Instructions To ensure continuity of care, you should contact your primary care provider (PCP) after any emergency or urgent care visit. The interval of time that you are advised to follow up from this evaluation may change based on the referral clinic's review of your case. Your contact phone number (listed in your medical record) is [phone]. Please let our registration staff know if this phone number is not correct. If you have any labs that are still pending at the time of discharge from this visit, the results will be available in your patient portal as soon as they are completed. Our standard follow up process is to contact you only if the results are abnormal. The national suicide prevention hotline is 302. Immediate assistance is available to anyone in crisis by calling this number. Please return to the emergency department if you develop new or worsening symptoms. 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 Presents with lacerations to left face, left knee, right hand. Abrasion to right knee. Tetanusstatus unknown. Tetanus Status Patient states unknown History of Present Illness Evaluation initiated HERO YEPEZ is a 32 year old F who presented to [facility] Emergency Department for evaluation September 20, 2023 14:28. Arrived from outdoors Source patient is a good historian Other Sources family member Narrative history Pt p/w quan knee abrasions, R 5th digit abrasion, L facial laceration after trip and fall on to pavement. Pt landed on knees, then hit face; glasses cut face just lateral to L eye. Pt denies LOC. Pt not on AC. Review of Systems General NO Report of Fever Skin Report of Skin Injury Respiratory NO Report of Labored Breathing Gastrointestinal NO Report of Vomiting Musculoskeletal Report of Acute Injury and Isolated Injury Neurological NO Report of Focal Weakness, Loss of Sensation, Neurologic Impairment or Loss of Consciousness Heme/Onc NO Report of Anticoagulated Endocrine NO Report of Blood Sugar Problem Allergy/Immune Report of Allergies Limitations Report of none Past Medical History Medical History Hypothyroid OBGYN History Last Menstrual Period: 08/24/23 Patient : No Social History Smoking Status: Current every day smoker tobacco type: cigarettes and e-cigarettes Hx Alcohol Use: No Hx Substance Use: Yes (daily marijuana) substance use type: marijuana Isolation Needs [place] Allergies fluoxetine [From Prozac] Allergy (Verified 09/20/23 14:36) mirtazapine [From Remeron] Allergy (Verified 09/20/23 14:36) Home Medications clonidine HCl 0.1 mg tablet mg 09/20/23 hydroxyzine HCl 25 mg tablet mg 09/20/23 levothyroxine 150 mcg tablet mcg 09/20/23 paroxetine HCl 30 mg tablet 60 mg PO 09/20/23 Vital Signs Table Temp Pulse Resp BP Pulse Ox O2 Del Method 09/20/23 14:32 97.3 F L 92 18 138/81 97 Room Air Physical Exam General mental status: awake, appropriate, baseline cognition and answers questions constitutional: well appearing and non-toxic level of distress: in no distress Skin warm Eyes pupils reactive to light and equal B, accommodation normal and EOM intact bilaterally HENT head: normocephalic, tenderness (no facial bone ttp.) and other (3cm superficiallac lat to L eye with small skin avulsion cephaled. ) Resp breathing: no apparent respiratory difficulty Upper Ext right upper extremity: hand (5th digit abrasion over PIP joint, FROM of all joints, no bony ttp.) Lower Ext right lower extremity: knee (abrasion, FROM, no bony ttp.) left lower extremity: knee (ant abrasion, FROM ttp ant) Neuro no focal deficits Psych mood: congruent mood Ordered Tests and Interventions Category Date Time Status Knee 4 vw Min LT Stat Exams 09/20/23 14:51 Completed Ordered Medications Discontinued Medications Diphtheria/Pertussis/Tetanus Vacc (Pifvmga-Wmkh-Owqin Pertuss Ad 0.5 Ml Syr) 0.5 ml IM .ONCE ONE Stop: 09/20/23 14:52 Last Admin: 09/20/23 14:56 Dose: 0.5 ml Documented By: RDCecile Progress Note note 1: 09/20/23 @ 1445, Woodrow Candelariol: Pt p/w quan knee abrasions, R 5th digitabrasion, L facial laceration after trip and fall on to pavement. Pt landed on knees, then hit face; glasses cut face just lateral to L eye. Pt denies LOC. Pt not on AC. On exam, quan knee abrasions. L knee ttp. FROM of both knees. R 5th digit abrasion over PIP joint; FROM of IP joints with no bony ttp. 3cm superficial L facial laceration with small skin avulsion cephaled. Will cleanse and dress wounds. Facial lac will benefit from skin glue. Will x-ray L knee to r/o bony inj. Do not suspect any ICH, c-s or internal injuries. 1545: Imaging unremarkable, do not suspect occult fx. Facial lac repaired with glue, pt tolerated well. Pt counseled on wound care. Pt stable for d/c with close PCP f/u, given strict instructions to return to the ED immediately for anyconcerning sx. Medical Decision Making MDM Number and complexity of diagnoses considered: straightforward (ie:minor, self-limited) Complexity of data reviewed: low complexity and ordered and reviewed unique test(s) Results of this evaluation were discussed with, patient, treatment options were reviewed, the evaluation and treatment were guided by these discussions, the patient was kept informed of results and plan of treatment. and Return precautions were reviewed with the patient and/or caregivers. Procedures Laceration Laceration 1: Location: face Side: left Length in centimeters: 3 Description: linear Depth: laceration extends through dermis Wound Preparation: the wound was washed and prepped in the usual fashion, extensively irrigated with normal saline and deep structures were found to be intact SKIN layer closed with: skin glue Results: A simple wound closure was performed and no complications Discharge Plan Provider Discharge Plan Patient Disposition: Home/Self Care Clinical Impression: Laceration, Contusion Disposition Decision Date: 09/20/23 Disposition Decision Time: 15:45 Instructions: Minor Contusion ED, Wound Care ED, Laceration Repair With Glue ED Referrals: PCP,Not Given [Primary Care Provider] - As Needed Activity Restrictions/Additional Instructions: * To ensure continuity of care, you should contact your primary care provider (PCP) after any emergency or urgent care visit. * The interval of time that you are advised to follow up from this evaluation may change based on the referral clinic's review of your case. * Your contact phone number (listed in your medical record) is [phone]. Please let our registration staff know if this phone number is not correct. * If you have any labs that are still pending at the time of discharge from this visit, the results will be available in your patient portal as soon as they are completed. Our standard follow up process is to contact you only if the results are abnormal. * The national suicide prevention hotline is 034. Immediate assistance is available to anyone in crisis by calling this number. * Please return to the emergency department if you develop new or worsening symptoms. Stand Alone Forms: ED General DC Instructions Prescriptions/Home Medications: No Action paroxetine HCl 30 mg Tablet 60 mg PO levothyroxine 150 mcg Tablet hydroxyzine HCl 25 mg Tablet clonidine HCl 0.1 mg Tablet <Electronically signed by Woodrow Brown MD> 09/20/23 [id number] cc: ~
--- OUTSIDE RECORDS SUMMARY | 2023-11-05 20:04 | XMS_ITS | Continuity of Care Document ---
Author Organization [facility] Address [address], [place] [address] Phone Support Name Relationship Address Phone AJ YEPEZ Spouse Unknown PCP, Not Given Primary Care Provider Unknown Unav ailable Joseph Valentin MD Emergency Provider [facility] [place] [address] Care Teams Patient Care Team Team Status: Active Member Role Status Dates Not Given PCP Primary Care Provider Active Visit Care Team Team Status: Inactive Member Role Status Dates Not Given PCP Primary Care Provider Active Start : October 24, 2023 End: October 25, 2023 Joseph Valentin MD Emergency Provider Active Start: October 24, 2023 End: October 25, 2023 Chief Complaint and Reason for Visit Chief Complaint Admit Date RIGHT SIDED PAIN October 24, 2023 10: 06pm Allergies, Adverse Reactions, Alerts Allergen Type Severity Reaction Last Updated Verified Status fluoxetine Allergy Unknown October 24, 2023 10:20pm Yes Active mirtazapine Allergy Unknown October 24, 2023 10:20pm Yes Active Social History Smoking Status Status Start Date End Date Date of Observa tion Smokes tobacco daily (finding) October 24, 2023 11:04pm Observation Status Date of Observation Not October 24, 2023 Observation Status Observation Response Date of Response Alcohol Use No October 24, 2023 11:04pm Substance Use Yes October 24, 2023 11:04pm substance use type marijuana October 23 024 11:04pm Smoking Status Current every day smoker October 24, 2023 11:04pm Additional Data Assigned Sex Female Problems Active Problems Medical Problem Onset Date Status Right upper quadrant abdominal pain Active Inactive/Resolved Problems Medical Problem Onset Date Status Laceration Resolved Contusion Resolved Medications Medication Status Dose Units Route Directions Qty Days St art Date End Date Instructions Paroxetine Hcl Active 60 MG PO Ju 2023 12:00am Levothyroxine Active MCG TABLET Sep 12:00am Hydroxyzine Hcl Active MG TABLET J dwain 2023 12:00am Clonidine Hcl Active MG TABLET Sep 12:00am Immunizations Immunization Event Date Not Given Reason Dose Number Radio Interference Trouble Shooter Lot Number Vaccine Information Statement (VIS) Detail Tdap September 20, 2023 [id number] Procedures Procedure Date Performed Status CT Abdomen w/ Contrast October 24, 2023 11:10pm completed Relevant Diagnostic Tests and/or Laboratory Data Laboratory Results Test Date/Time Result Interpretation Reference Range Result Comment Performing Site White Blood Count October 24, 2023 10:40pm 9.20 10*3/mL 4.8-10.8 [facility] [id number] [address] [address] Red Blood Count October 24, 2023 10:40pm 3.46 mol/mL decreased 4.20-5.40 [facility] [id number] [address] [address] Hemoglobin October 24, 2023 10:40pm 10.3 g/dL decreased 12.0-16.0 [facility] [id number] [address] [address] Hematocrit October 24, 2023 10:40pm 32.0 % decreased 37-47 [facility] [id number] [address] [address] Mean Corpuscular Volume October 24, 2023 10:40pm 92.5 fL 81.0-99.0 [facility] [id number] [address] [address] Mean Corpuscular Hemoglobin October 24, 2023 10:40pm 29.8 pg 27-31 [facility] [id number] [address] [address] Mean Corpuscular Hemoglobin Concent October 24, 2023 10:40pm 32.2 g/dL decreased 33-37 [facility] [id number] [address] [address] Red Cell Distribution Width October 24, 2023 10:40pm 15.8 % increased 11.5-14.5 [facility] [id number] [address] [address] Platelet Count October 24, 2023 10:40pm 345 10*3/mL 140-440 [facility] [id number] [address] [address] Mean Platelet Volume October 24, 2023 10:40pm 9.6 fL 7.4-10.4 [facility] [id number] [address] [address] Neutrophils (%) (Auto) October 24, 2023 10:40pm 44.5 % 40.0-72.0 [facility] [id number] [address] [address] Lymphocytes (%) (Auto) October 24, 2023 10:40pm 43.4 % 17-45 [facility] [id number] [address] [address] Monocytes (%) (Auto) October 24, 2023 10:40pm 6.4 % 3-11 [facility] [id number] [address] [address] Eosinophils (%) (Auto) October 24, 2023 10:40pm 3.9 % increased 0-3 [facility] [id number] [address] [address] Basophils (%) (Auto) October 24, 2023 10:40pm 1.3 % increased 0-1 [facility] [id number] [address] [address] Immature Granulocyte % (Auto) October 24, 2023 10:40pm 0.5 % 0-1 [facility] [id number] [address] [address] Neutrophils # (Auto) October 24, 2023 10:40pm 4.09 10*3/mL 1.4-6.5 [facility] [id number] [address] [address] Lymphocytes # (Auto) October 24, 2023 10:40pm 3.99 10*3/mL increased 1.2-3.4 [facility] [id number] [address] [address] Monocytes # (Auto) October 24, 2023 10:40pm 0.59 10*3/mL 0.0-0.8 [facility] [id number] [address] [address] Eosinophils # (Auto) October 24, 2023 10:40pm 0.36 10*3/mL 0.0-0.7 [facility] [id number] [address] [address] Basophils # (Auto) October 24, 2023 10:40pm 0.12 10*3/mL increased 0.0-0.1 [facility] [id number] [address] [address] Absolute Immature Granulocyte (auto October 24, 2023 10:40pm 0.1 0-1 [facility] [id number] [address] [address] Differential Method October 24, 2023 10:40pm Automated [facility] [id number] [address] [address] Sodium Level October 24, 2023 10:40pm 138 mmol/L 137-145 [facility] [id number] [address] [address] Potassium Level October 24, 2023 10:40pm 4.1 mmol/L 3.6-5.0 [facility] [id number] [address] [address] Chloride Level October 24, 2023 10:40pm 102 mmol/L 98-107 [facility] [id number] [address] [address] Carbon Dioxide Level October 24, 2023 10:40pm 27 mmol/L 22-30 [facility] [id number] [address] [address] Anion Gap October 24, 2023 10:40pm 9 7-16 [facility] [id number] [address] [address] Blood Urea Nitrogen October 24, 2023 10:40pm 11 mg/dL 7-17 [facility] [id number] [address] [address] Creatinine October 24, 2023 10:40pm 0.90 mg/dL 0.52-1.04 [facility] [id number] [address] [address] Glomerular Filtration Rate Calc October 24, 2023 10:40pm 87 mL/min >60.0 [facility] [id number] [address] [address] Glucose Level October 24, 2023 10:40pm 92 mg/dL 70-100 [facility] [id number] [address] [address] Calcium Level October 24, 2023 10:40pm 9.8 mg/dL 8.4-10.2 [facility] [id number] [address] [address] Calcium Adjusted for Albumin October 24, 2023 10:40pm 9.5 mg/dL 8.4-10.2 [facility] [id number] [address] [address] Albumin October 24, 2023 10:40pm 4.7 g/dL 3.5-5.0 [facility] [id number] [address] [address] Total Protein October 24, 2023 10:40pm 7.8 g/dL 6.3-8.2 [facility] [id number] [address] [address] Alkaline Phosphatase October 24, 2023 10:40pm 61 U/L 38-126 [facility] [id number] [address] [address] Alanine Aminotransferase (ALT/SGPT) October 24, 2023 10:40pm 24 U/L <35 [facility] [id number] [address] [address] Aspartate Amino Transf (AST/SGOT) October 24, 2023 10:40pm 36 U/L 14-36 [facility] [id number] [address] [address] Total Bilirubin October 24, 2023 10:40pm 0.5 mg/dL 0.2-1.3 [facility] [id number] [address] [address] Lipase October 24, 2023 10:40pm 159 U/L 23-300 [facility] [id number] [facility] [address] [facility] [address] Diagnostic Imaging Reports Author Robert Dupree [facility] October 25, 2023 12:48am Report Date/Time October 25, 2023 12: 48am [facility] CAT SCAN REPORT PATIENT NAME: HERO YEPEZ [id number] DATE OF : 1990 ATTENDING/ER PHYSICIAN: ER/ATTENDING PHYSICIAN: Joseph Valentin MD PRIMARY CARE PHYS: Not Given ADMITTING PHYSICIAN: CONSULTING PHYSICIAN: PROCEDURE DATE: 10/24/23 REPORT STATUS: Signed DICTATING PHYSICIAN: Robert Dupree MD REASON FOR EXAM: RUQ and R flank pain, nausea PROCEDURE INFORMATION: Exam: CT Abdomen With Contrast Exam date and time: 10/24/2023 11:46 PM Age: 32 years old Clinical indication: Abdominal pain; Patient HX: PT arrived with right upper abd pain, PT reports pain has been on going for the past week with little effect from otc meds, PT denied any n/v but had been having diarrhea during the past week. ( end ); Additional info: Ruq and R flank pain, nausea TECHNIQUE: Imaging protocol: Computed tomography of the abdomen with contrast. Radiation optimization: All CT scans at this facility use at least one of these dose optimization techniques: automated exposure control; mA and/or kV adjustment per patient size (includes targeted exams where dose is matched to clinical indication); or iterative reconstruction. Contrast material: OMNIPAQUE 350; Contrast volume: 95 ml; Contrast route: INTRAVENOUS (IV); COMPARISON: No relevant prior studies available. FINDINGS: Liver: Normal. No mass. Gallbladder and biliary ducts: Normal. No calcified stones. No ductal dilation. Pancreas: Normal. No ductal dilation. Spleen: Normal. No splenomegaly. Adrenal glands: Normal. No mass. Kidneys and ureters: Normal. No hydronephrosis. Stomach and bowel: Visualized stomach and bowel are unremarkable. No obstruction. No mucosal thickening. Intraperitoneal space: Unremarkable. No free air. No significant fluid collection. Vasculature: Unremarkable. No abdominal aortic aneurysm. Lymph nodes: Unremarkable. No enlarged lymph nodes. Bones/joints: Mild curvature of the lumbar spine convex the right. Posterior L4-L5 disc bulge causing mild thecal sac compression. Soft tissues: Fat containing umbilical hernia. IMPRESSION: No acute intra-abdominal process. Electronically Signed By : Robert Dupree MD dd: 10/25/234710/25/2347 Vital Signs Vital Reading Result Reference Range Collection Date/Time Weight 102.05 kg October 23 10:17pm Body Temperature 98.1 [degF] 97.6-99.6 October 24, 2023 10:17pm Heart Rate 78 /min 60-100 October 24 12:04am Respiratory rate 16 /min 12-24 October 25, 2023 12:04am Oxygen saturation by Pulse oximetry 99 % 88-100 October 25, 2023 12: 04am BP Systolic 116 mm[Hg] 100-140 October 24 12:04am BP Diastolic 78 mm[Hg] 50-85 October 24 12:04am Advance Directives Advance Directive Response Recorded Date/ Time Does patient have an Advance Directive? No September 20, 2023 3:11pm Does patient have a COLST form? No September 20, 2023 3:11pm Insurance Providers Guarantor HERO YEPEZ Address [address] [place] [address] Contact Info. Home Phone: Payer Policy Id Coverage Id Subscriber's Name Subscriber Id Effective Date Expiration Date [facility] [id number] HERO YEPEZ [id number] Encounters Encounter Location(s) Arrival/Admit Date Discharge/Depart Date Provider(s) Departed Emergency [facility]-Emergency Department October 24, 2023 10:06pm October 25, 2023 1:00am null Functional Status Observation Response Date Recorded Living Situation Home October 24 12:59am With Family October 25, 2023 12:59am Plan of Treatment Future Tests Future scheduled test information is unavailable Pending Tests Pending diagnostic test information is unavailable Future Visits Future appointment information is unavailable Referrals to Other Providers Referral information is unavailable Future Procedures Future procedure information is unavailable Future Medications Future medication information is unavailable Patient Instructions Instruction Admit Date Abdominal pain in adults - Discharge ins tructions October 24, 2023 10:06pm Hospital Discharge Instructions Additional Instructions Your CT and labs are overall unremarkable upon review today. As we discussed this could be a flare of your fatty liver or potentially a muscle spasm. If your symptoms persist or worsen, develop a fever or persistent nausea/vomiting, please return for repeat evaluation and potentially an ultrasound of your liver/gallbladder. To ensure continuity of care, you should contact your primary care provider (PCP) after any emergency or urgent care visit. The interval of time that you are advised to follow up from this evaluation may change based on the referral clinic's review of your case. Your contact phone number (listed in your medical record) is [phone]. Please let our registration staff know if [...] abnormal. The national suicide prevention hotline is 268. Immediate assistance is available to anyone in crisis by calling this number. Please return to the emergency department if you develop new or worsening symptoms.
--- OUTSIDE RECORDS SUMMARY | 2023-11-05 20:04 | XMS_ITS | Data Portability ---
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 Available [facility] 01/26/2023 04:42:11 HPV, quadrivalent 12/18/1996 completed Not Available [facility] 01/26/2023 04:42:11 HPV, quadrivalent 03/07/2007 completed Not Available [facility] 01/26/2023 04:42:11 influenza, unspecified formulation 12/18/2006 completed Not Available [facility] 01/26/2023 04:42:12 influenza, unspecified formulation 01/13/2009 completed Not Available [facility] 01/26/2023 04:42:12 influenza, unspecified formulation 01/18/2010 completed Not Available [facility] 01/26/2023 04:42:12 polio, unspecified formulation 03/21/1991 completed Not Available [facility] 01/26/2023 04:42:12 polio, unspecified formulation 05/31/1992 completed Not Available [facility] 01/26/2023 04:42:12 polio, unspecified formulation 10/17/1996 completed Not Available [facility] 01/26/2023 04:42:12 polio, unspecified formulation 01/17/1991 completed Not Available [facility] 01/26/2023 04:42:12 Past Encounters Encounter ID Performer Location Encounter Start Date Encounter Closed Date Diagnosis/Indication Diagnosis SNOMED-CT Code [id number] YARIEL FERREIRA PA-C [facility] [address] [place] [address] 09/10/2023 16:43:47 09/12/2023 09:20:11 Anxiety [id number] Hypothyroidism [id number] Sheltered homelessness [id number] YARIEL FERREIRA PA-C [facility] [place] [address] 11/05/2023 14:21:21 11/05/2023 15:26:50 Abdominal pain [id number] Hypothyroidism [id number] Health Concerns Section Related Observation LastModified by Organization Detai ls LastModified Time None Recorded Concern Status LastModified by Organization Details LastModified Time None Recorded Advance Directives Directive None Recorded Payers Encounter Date Sequence Insurance Name Policy Number Policy Hendricks Covered Member ID Hendricks Member ID Guarantor Name 09/10/2023 1 *SELF PAY* Ca chanelle Morse Notes Date Note Type Note Provider Name and Address Organization Details Recorded Time 09/10/2023 text/html HPI Notes: Acute visit for anxiety, usually sees ARIELA Conde She has had a rough year. She had to move d/t apartment being sold after 7 years. Then the trailer from her brother was taken away because she could not remove from property. A lot anxiety came from this situation. She has been homeless and is now at [facility] for 3 days. She has been working with several agencies. Has two children aged 6 and 12. She has her paroxetine 60 mg and hydroxyzine. She has not been on her thyroid medication for a year. she needs that and her Clonidine. She had a great counsellor that just left her practice two weeks ago. (Polina Gardner in [place]) Her PHQ-9 and MARIA GUADALUPE-7 scores are both extremely high. She has suicidal thoughts, but denies any plan. She has no access to guns. When I asked her if she should give her medication to her to hold onto, she tells me she feels safe, that because of her children she has no intent to act on her thoughts. She had 1 episode of hospitalization for suicidal ideation back at age 17. She tells me that she actually feels as though her mental health is better than it was a year ago thanks to her children and to her counselor. She was previously followed by psychiatric nurse practitioner Akosua Amin. Stopped thyroid medicaton a year ago, has gained 30 pounds. Legs are now swelling. Voice is raspy, losing hair, skin is dry. Chronic diarrhea that she attributes to the anxiety. Very tired all the time. No constipation. JOSEFA RODRÍGUEZ MD [address], [place], [address], [facility] 09/10/2023 20:41:51 11/05/2023 text/html HPI Notes: Jose garcia is here for abdominal pain. She has been having right-sided abdominal pain for the past couple of weeks. She was seen in the ER 9 days ago. Prescribed methocarbamol which offered symptomatic benefit. Since then her abdominal pain has been more associated with meals. She ran out of methocarbamol a couple days ago. Denies any nausea or vomiting. She had diarrhea a couple of weeks ago that has resolved. Pain is aggravated by moving -twisting, bouncing, lifting. No associated shortness of breath. No associated fevers or chills. She denies any urinary symptoms. YARIEL FERREIRA PA-C [address], [place], [address], [facility] 11/05/2023 15:56:38 OBGyn Episode No OBEpisode recorded.
--- OUTSIDE RECORDS SUMMARY | 2023-11-05 20:05 | XMS_ITS | Encounter Summary ---
Author Organization [facility] Address [address] [place] [address] Care Team Providers Care Mobile Mechanic Name Role Phone Kumar Smith MD Primary Care Provider [phone] Encounter Details Date Type Department Care Team (Late st Contact Info) Description 01/17/2016 Results Only [facility] [phone] Abbey Talbot, PAOLA [address] [place] [address] Social History Tobacco Use Types Packs/Day Years Used Date Smoking Tobacco: Never Assessed Sex and Gender Information Value Date Recorded Sex Assigned at Not on file Gender Identity Female 10/27/2023 20:13 EDT Sexual Orientation Not on file documented as of this encounter Plan of Treatment Not on file documented as of this encounter Procedures Procedure Name Priority Date/Time Associated Diagnosis Comments PAP TEST- RESULT ONLY Routine 01/17/2016 0:00 EDT documented in this encounter Results * PAP TEST- RESULT ONLY (01/17/2016 0:00 EDT) Pathology Report: CYTOPATHOLOGY REPORT Reports generated via electronic interface contain original data; however they are lacking the format of the original report. Caution should be taken when reading/interpreti ng unformatted reports. Name: ? HERO MEDLEY ? Accession #: ? [id number] ? : ? 1990 (Age: 25) ??F ?Collect Date: ? 01/17/2016 ? Location: ? [facility] ? Receive Date: ? 01/18/2016 ? Provider: ABBEY TALBOT APRN Copy to: ? Final Report SPECIMEN ADEQUACY ? Satisfactory for Evaluation - transformation zone component present GENERAL CATEGORIZATION ? Negative for Intraepithelial Lesion or Malignancy INTERPRETATION ? Fungal organisms present morphologically consistent with Kourtney species. Last Menstrual Period: 11/09/2015 Hormonal/Contracep tive status: None Specimen/Source: ??Pap Test, Cervix, ThinPrep Imaging System with manual evaluation Document reviewed and electronically signed by: ? Emily Roberts, CT(ASCP) ? Report ??Date: 01/20/2016 10:38 HPV with Pap Test ? Date Ordered: ? 01/20/2016 ? Status: ?? Signed Out ?Date Complete: ? 01/25/2016 ? By: ??System Interface ? Date Reported: ? 01/25/2016 ? Interpretation RESULT: Negative for HPV. No E6 or E7 mRNA is detected from HPV types 16,18,31,33,35, 39,45,51,52,56,58, 59,66, and 68 by toby maker mediated amplification. Comments Document reviewed and electronically signed by: ? System Interface ? Report date: 01/25/2016 By the signature above, the attending physician certifies that he/she has personally conducted a gross and/or microscopic examination of the described specimens and rendered or confirmed the above diagnosis. End of Report [facility] 01/17/2016 01/18/2016 Abbey Talbot APRN PATHOLOGY ORDERABLES Performing Organization Address City/State/[facility] Co de Phone Number [facility] [address] [place] [address] documented in this encounter Visit Diagnoses Not on filedocumented in this encounter Care Teams Mobile Mechanic Relationship Specialty Start Date End Date Kumar Smith MD [address] [place] [address] PCP - General 07/17/08 07/19/17 documented as of this encounter
--- OUTSIDE RECORDS SUMMARY | 2023-11-05 20:05 | XMS_ITS | Referral Summary ---
Author Organization [facility] Address [address] [place] [address] Care Team Providers Care Slinger Sequins Name Role Phone JhonYariel [facility] Primary Care Provider [phone] Encounters Date Type Department Care Team Description 10/27/2023 19:41 EDT - 10/27/2023 22:49 EDT Emergency [facility] Emergency Department - [facility] [address] [place] [address] Kendall Dillard MD RUQ pain (Primary Dx) Discharge Disposition: Home or Self Care from Last 3 Months Allergies Active Allergy Reactions Criticality Noted Date Comments Fluoxetine 10/27/2023 Mirtazapine 10/27/2023 Medications Medication Sig Dispensed Refills Start Date End Date Status methocarbamoL (ROBAXIN) 750 mg tablet Take 1 Tablet by mouth 3 times daily for 3 days. 9 Tablet 10/27/2023 10/30/2023 Social History Tobacco Use Types Packs/Day Years Used Date Smoking Tobacco: Never Assessed Interpersonal Safety Answer Date Record ed Physically Hurt Never 10/19/2019 Verbally Threaten Not on file 10/19/2019 Sex and Gender Information Value Date Recorded Sex Assigned at Not on file Gender Identity Female 10/27/2023 20:13 EDT Sexual Orientation Not on file Last Filed Vital Signs Vital Sign Reading Time Taken Comments Blood Pressure 138/86 10/27/2023 2245 EDT Pulse - - Temperature 36.7 ??C (98 ??F) 10/27/2023 2245 EDT Respiratory Rate 16 10/27/2023 2245 EDT Oxygen Saturation 98% 10/27/2023 2245 EDT Inhaled Oxygen Concentration - - Weight 102.1 kg (225 lb) 10/27/20231938 EDT Height 154.9 cm (5' 1) 10/27/20231938 EDT Body Mass Index 42.51 10/27/20231938 EDT Plan of Treatment Not on file Procedures Procedure Name Priority Date/Time Associated Diagnosis Comments US ABDOMEN LIMITED STAT 10/27/2023 21 :21 EDT POCT URINE DIPSTICK, CLINITEK STAT 10/27/2023 20:55 EDT POCT TEST, CLINITEK STAT 10/27/2023 20:55 EDT POCT CSN BARCODE URINE DIPSTICK STAT 10/27/2023 20:51 EDT POCT CSN BARCODE URINE PREG TEST STAT 10/27/2023 20:51 EDT POCT URINE CLINITEK (DIPSTICK) - DOES NOT REFLEX STAT 10/27/2023 20:51 EDT POCT TEST, CLINITEK ORDER STAT 10/27/2023 20:51 EDT COMPLETE BLOOD COUNT Routine 10/27/2023 20:51 EDT LIPASE STAT 10/27/2023 20:04 EDT COMPREHENSIVE METABOLIC PANEL (CMP) STAT 10/27/2023 20:04 EDT from Last 3 Months Results * US ABDOMEN LIMITED (10/27/2023 21:21 EDT) Anatomical Region Laterality Modality Abdomen, Body Ultrasound 10/28/2023 8:23 EDT Impressions 10/28/2023 8:23 EDT 1. ??No cholelithiasis or sonographic evidence of acute cholecystitis. 2. ??Hepatomegaly with hepatic steatosis and/or fibrosis. I have personally reviewed the images and the above interpretation and agree with the findings. [id number] Narrative 10/28/2023 8:23 EDT US ABDOMEN LIMITED ??10/27/2023 8:59 PM SIGNS AND SYMPTOMS/COMMENTS: RUQ pain x 1 week, assess for cholecystitis COMPARISON: None. TECHNIQUE: Grayscale and Doppler ultrasound evaluation of the right upper quadrant of the abdomen was performed. FINDINGS: PANCREAS: Poor visibility of the tail due to overlying bowel gas, otherwise within normal limits. LIVER: The liver measures 20.3 cm in length, which is enlarged. Homogenously increased echogenicity with some sparing adjacent to the gallbladder fossa. GALLBLADDER: The gallbladder wall measures 2 mm in thickness, which is normal. Mildly distended with anechoic contents. BILE DUCTS: The common duct measures 3 mm in diameter at the abril hepatis, which is normal. No intrahepatic dilation RIGHT KIDNEY: The right kidney measures 10.0 cm in length. No hydronephrosis or shadowing stones. PROXIMAL ABDOMINAL AORTA / IVC: Normal. OTHER FINDINGS: None. Resulting Agency Comment [id number] Procedure Note Jose Roberto Seo MD - 10/28/2023 US ABDOMEN LIMITED 10/27/2023 8:59 PM SIGNS AND SYMPTOMS/COMMENTS: RUQ pain x 1 week, assess for cholecystitis COMPARISON: None. TECHNIQUE: Grayscale and Doppler ultrasound evaluation of the right upperquadrant of the abdomen was performed. FINDINGS: PANCREAS: Poor visibility of the tail due to overlying bowel gas,otherwise within normal limits. LIVER: The liver measures 20.3 cm in length, which is enlarged.Homogenously increased echogenicity with some sparing adjacent to thegallbladder fossa. GALLBLADDER: The gallbladder wall measures 2 mm in thickness, which isnormal. Mildly distended with anechoic contents. BILE DUCTS: The common duct measures 3 mm in diameter at the portahepatis, which is normal. No intrahepatic dilation RIGHT KIDNEY: The right kidney measures 10.0 cm in length. Nohydronephrosis or shadowing stones. PROXIMAL ABDOMINAL AORTA / IVC: Normal. OTHER FINDINGS: None. IMPRESSION 1. No cholelithiasis or sonographic evidence of acute cholecystitis. 2. Hepatomegaly with hepatic steatosis and/or fibrosis. I have personally reviewed the images and the above interpretation andagree with the findings. [id number] Massimo Medel PA-C IMG US ORDERAB LES * POCT TEST, CLINITEK (10/27/2023 20:55 EDT) UPT Result Negative Negative 10/27/2023 21:01 EDT [facility] HN LAB COMMENT (CLINITEK, UPT) Test performed at Emergency Department 10/27/2023 21:01 EDT [facility] Comment:False negative resul ts may occur in women who are beyond 5-8 weeks gestation. Diagnosis of should be based on a correlation of test results with typical clinical signs and symptoms. Urine URINE SPECIMEN OBTAINED BY CLEAN CATCH PROCEDURE / Unknown 10/27/2023 20:55 EDT 10/27/2023 21:01 EDT Massimo Medel PA-C POINT OF CARE TEST ORDERABLES [facility] [address] [place] [address] * (ABNORMAL) POCT URINE DIPSTICK, CLINITEK (10/27/2023 20:55 EDT) Color, UA Yellow Yellow 10/27/2023 20:57 [facility] Clarity, UA Clear Clear 10/27/2023 20:57 [facility] Glucose, UA Negative Negative mg/dL 10/27/2023 20:57 [facility] Bilirubin, UA Negative Negative 10/27/2023 20:57 [facility] Ketones, UA Negative Negative 10/27/2023 20:57 [facility] Specific [place], Urine 1.020 1.001 - 1.030 10/27/2023 20:57 [facility] Blood, UA 1+(A) Negative 10/27/2023 20:57 [facility] pH, UA 6.5 <8.5 10/27/2023 20:57 [facility] Protein, UA Negative Negative mg/dL 10/27/2023 20:57 EDT [facility] Urobilinogen, UA 1.0 0.2 - 1.0 mg/dL 10/27/2023 20:57 EDT [facility] Nitrite, UA Negative Negative 10/27/2023 20:57 EDT [facility] Leuk Esterase Negative Negative 10/27/2023 20:57 EDT [facility] HN LAB COMMENT (CLINITEK, UR) Test performed at Emergency Department 10/27/2023 20:57 EDT [facility] Urine URINE SPECIMEN OBTAINED BY CLEAN CATCH PROCEDURE / Unknown 10/27/2023 20:55 EDT 10/27/2023 20:57 EDT Massimo Medel PA-C POINT OF CARE TEST ORDERABLES Performing Organization Address [facility] Co de Phone Number [facility] [address] [place], [place] [id number] * POCT CSN BARCODE URINE PREG TEST (10/27/2023 20:51 EDT) Urine URINE SPECIMEN OBTAINED BY CLEAN CATCH PROCEDURE / Unknown Urine Collect / Unknown 10/27/2023 20:51 EDT 10/27/2023 20:51 EDT Massimo Medel PA-C LAB INFO SERVI CE AND SUPPORT & PHONE RESULT Performing Organization Address [facility] Co de Phone Number [facility] [address] [place] [address] * POCT CSN BARCODE URINE DIPSTICK (10/27/2023 20:51 EDT) Urine URINE SPECIMEN OBTAINED BY CLEAN CATCH PROCEDURE / Unknown Urine Collect / Unknown 10/27/2023 20:51 EDT 10/27/2023 20:51 EDT Massimo Medel PA-C LAB INFO SERVI CE AND SUPPORT & PHONE RESULT Performing Organization Address [facility] Co de Phone Number [facility] [address] [place], [place] [phone] * (ABNORMAL) COMPLETE BLOOD COUNT (10/27/2023 20:51 EDT) WBC 9.88 4.00 - 12.40 K/cmm 10/27/2023 21:04 [facility] RBC 3.53(L) 3.86 - 5.04 M/cmm 10/27/2023 21:04 [facility] Hemoglobin 10.4(L) 11.6 - 15.2 g/dL 10/27/2023 21:04 [facility] HCT 31.1(L) 34.9 - 44.4 % 10/27/2023 21:04 [facility] MCV 88 81 - 98 fL 10/27/2023 21:04 [facility] MCH 29.5 26.7 - 33.3 pg 10/27/2023 21:04 [facility] MCHC 33.4 32.1 - 35.9 g/dL 10/27/2023 21:04 [facility] RDW-CV 15.4(H) <14.7 % 10/27/2023 21:04 [facility] RDW-SD 49.6 <50.4 fl 10/27/2023 21:04 [facility] PLT 327 141 - 377 K/cmm 10/27/2023 21:04 [facility] MPV 9.3(L) 9.5 - 12.7 fL 10/27/2023 21:04 [facility] Blood VENOUS BLOOD / Unknown Venipuncture / Unknown 10/27/2023 20:51 EDT 10/27/2023 20:54 EDT David Marie MD HEMATOLOGY & PF4 ORDERABLES [facility] [address] [place] [address] * LIPASE (10/27/2023 20:04 EDT) Lipase 55 <251 U/L 10/27/2023 20:24 [facility] Blood VENOUS BLOOD / Unknown Venipuncture / Unknown 10/27/2023 20:04 EDT 10/27/2023 20:07 EDT David Marie MD CHEMISTRY & BLOOD GAS ORDERABLES [facility] [address] [place] [address] * COMPREHENSIVE METABOLIC PANEL (CMP) (10/27/2023 20:04 EDT) Sodium 139 136 - 145 mmol/L 10/27/2023 20:27 [facility] Potassium 4.2 3.5 - 5.0 mmol/L 10/27/2023 20:27 [facility] Comment:Slight hemolysis emili ntified, interpret with caution as hemolysis will elevate potassium result. Chloride 103 96 - 110 mmol/L 10/27/2023 20:27 [facility] CO2 Total 28 22 - 32 mmol/L 10/27/2023 20:27 [facility] Glucose 96 70 - 99 mg/dl 10/27/2023 20:27 [facility] BUN 12 10 - 26 mg/dL 10/27/2023 20:27 [facility] Comment: Slight hemolysis identified, interpret with caution as results may be affected due to hemolysis. Creatinine 0.78 0.52 - 1.04 mg/dL 10/27/2023 20:27 [facility] eGFR 103 >60 mL/min/1.7 3m2 10/27/2023 20:27 [facility] Total Protein 7.6 6.3 - 8.2 g/dL 10/27/2023 20:27 [facility] Comment:Slight hemolysis emili ntified, interpret with caution as results may be affected due to hemolysis. Albumin 4.6 3.4 - 4.9 g/dL 10/27/2023 20:27 [facility] Comment:Slight hemolysis emili ntified, interpret with caution as results may be affected due to hemolysis. Alkaline Phosphatase 41 38 - 126 U/L 10/27/2023 20:27 EDT [facility] Comment:Slight hemolysis emili ntified, hemolysis will decrease ALKP result. Interpret with caution as results may be affected due to hemolysis. AST 32 15 - 46 U/L 10/27/2023 20:27 T [facility] Comment:Slight hemolysis emili ntified, interpret with caution as results may be affected due to hemolysis. ALT 19 <35 U/L 10/27/2023 20:27 EDT [facility] Bilirubin, Total 0.6 <1.4 mg/dL 10/27/19 20:27 EDT [facility] Calcium 9.2 8.5 - 10.5 mg/dL 10/27/2023 20:27 T [facility] Albumin/Globulin Ratio 1.5 1.0 - 2.5 10/27/2023 20:27 T [facility] Anion Gap 8 5 - 14 mmol/L 10/27/2023 20:27 T [facility] Blood VENOUS BLOOD / Unknown Venipuncture / Unknown 10/27/2023 20:04 EDT 10/27/2023 20:07 EDT David Marie MD CHEMISTRY & BLOOD GAS ORDERABLES [facility] [address], [place] [phone] from Last 3 Months Care Teams Slinger Sequins Relationship Specialty Start Date End Date Yraiel Ferreira RPA [address] [place] [id number] PCP - General Family Medicine - Primary Care 10/27/23
--- OUTSIDE RECORDS SUMMARY | 2023-11-05 20:05 | XMS_ITS | Encounter Summary ---
Author Organization Formerly [facility] [place] [address] Care Team Providers Care Umbrella Cutter Name Role Phone None Primary Care Provider Unavailabl e Encounter Details Date Type Department Care Team (Latest Contact Info) Description 12/05/2016 8:38 AM EDT - 12/05/2016 11:59 PM EDT Hospital [place] [phone] Stacie Burnham MD [facility] OBSTETRICS [place] [address] Abnormal findings on screening Discharge Disposition: Home Social History Tobacco Use Types Packs/Day Years Used Date Smoking Tobacco: Every Day Cigarettes 0.5 3 Smokeless Tobacco: Never Alcohol Use Standard Drinks/Week Comments No 0 (1 standard drink = 0.6 oz pur e alcohol) Comments Yes Sex and Gender Information Value Date Recorded Sex Assigned at Not on file Gender Identity Not on file Sexual Orientation Not on file documented as of this encounter Medications at Time of Discharge Medication Sig Dispensed Refills Start Date End Date levothyroxine (SYNTHROID) 175 mcg Tablet TAKE 1 TABLET BY MOUTH ONCE DAILY 1 09/14/2016 VITAMIN PLUS LOW IRON 27 mg iron- 1 mg Tablet TAKE ONE TABLET BY MOUTH EVERY DAY 0 09/13/2016 documented as of this encounter Plan of Treatment Not on file documented as of this encounter Procedures Procedure Name Priority Date/Time Associated Diagnosis Comments US OB DETAILED MORPHOLOGY Routine 12/05/2016 10:37 AM EDT Abnormal findings on screening documented in this encounter Results * US OB Detailed Morphology (12/05/2016 10:37 AM EDT) Anatomical Region Laterality Modality Pelvis, Abdomen Ultrasound 12/05/2016 9:42 AM EDT Impressions 12/05/2016 11:14 AM EDT 2nd Trimester - Detailed Morphology - Summary Single intrauterine with a gestational age of 19w 5d based on LMP ??(07/20/16). Composite age based on the current ultrasound alone is 18w 4d. Amniotic fluid volume is appropriate for gestational age. Detailed anatomic evaluation was performed and no structural abnormalities are noted. Visualization limited due to maternal body habitus. ??I ??viewed the images and agree with the above interpretation. ?Angelica Perez MD Electronically Signed Final Report ?? 12/05/2016 11:14 am Narrative 12/05/2016 11:14 AM EDT OBSTETRICS REPORT ? (Signed Final 12/05/2016 11:14 am) PATIENT INFO: ID #: ? [id number] ?: ??[birth year] (26 yrs)(F) Name: ? HERO MUÑIZ ?Visit Date: 12/05/2016 09:42 am PERFORMED BY: Performed By: ? Jenniffer Cheng RDMS Attending: ?Ana NASCIMENTO, Angelica Freeman Referred By: ?DARLENE BRAGA CNM Location: ? [place] SERVICE(S) PROVIDED: ??[facility] - Detailed Morphology - [id number] ? [id number] INDICATIONS: ??19 weeks gestation of ?Z3A.19 ??Positive quad for DS OB HISTORY: Blood ?A+ ?Height: ??5'1 ?Weight (lb): 174 ? BMI: ??32.87 Type: EVALUATION: Num Of Fetuses: ? 1 Heart ? 155 Rate(bpm): Cardiac Activity: ?? Observed, normal rhythm Presentation: ? Cephalic Placenta: ? Anterior P. Cord Insertion: ??Within Normal Limits Amniotic Fluid ALIN FV: ?Appropriate for gestational age --------- BIOMETRY: --------- BPD: ?41.4 ??mm ? G.Age: ?? 18w 4d OFD: ?53.1 ??mm HC: ?152.5 ??mm ? G.Age: ?? 18w 2d AC: ?128.8 ??mm ? G.Age: ?? 18w 3d FL: ? 28.6 ??mm ? G.Age: ?? 18w 5d HUM: ?26.9 ??mm ? G.Age: ?? 18w 4d CER: ?19.1 ??mm ? G.Age: ?? 18w 4d NFT: ? 3.8 ??mm NB: ?4.9 ??mm LV: ?6.9 ??mm CM: ?5.0 ??mm CI: ?78.0 ??% ? 70 - 86 FL/HC: ? 18.8 ??% ? 16.8 - 19.8 HC/AC: ? 1.18 ?1.09 - 1.39 FL/BPD: ?69.1 ??% FL/AC: ? 22.2 ??% ? Est. FW: ? 246 ?? gm ? 0 lb 9 oz GESTATIONAL AGE: LMP: ? 19w 5d ?Date: ??07/20/16 ? LISA: ?? 04/26/17 U/S Today: ? 18w 4d ?LISA: ?? 05/04/17 Best: ?19w 5d ?? Det. By: ??LMP ??(07/20/16) ?LISA: ?? 04/26/17 TARGETED ANATOMY: Central Nervous System Calvarium/Cranial V.: ??Within Normal Limits Intracranial Rosie: ? Within Normal Limits Cavum: ? Visualized Parenchyma: ?Within Normal Limits Lateral Ventricles: ?Within Normal Limits Choroid Plexus: ?Within Normal Limits Cereb./Vermis: ? Within Normal Limits Cisterna Magna: ?Within Normal Limits Midline Falx: ?Within Normal Limits Spine Cervical: ?Visualized Thoracic: ?Visualized Lumbar: ?Visualized Sacral: ?Visualized Shape/Curvature: ? Visualized Head/Neck Face: ?Visualized Lips: ?Within Normal Limits Neck: ?Visualized Nuchal Fold: ? Within Normal Limits Nasal Bone: ?Present Profile: ? Visualized Orbits/Eyes: ? Visualized Mandible: ?Visualized Maxilla: ? Visualized Thorax Thoracic Contour: ?Visualized Lungs: ? Visualized 4 Chamber View: ?4- chamber view navarro Cardiac Motion: ?Normal Rhythm Rt Outflow Tract: ?Visualized Lt Outflow Tract: ?Visualized Aortic Arch: ? Visualized Ductal Arch: ? Visualized SVC: ? Visualized Cardiac Callaway: ?Visualized Diaphragm: ? Visualized 3 Vessel View: ? Visualized IVC: ? Visualized Crossing: ?Visualized Abdomen Ventral Wall: ?Visualized Cord Insertion: ?Visualized Situs: ? Normal Stomach: ? Visualized Liver: ? Visualized Lt Kidney: ? Visualized Rt Kidney: ? Visualized Bladder: ? Visualized Bowel: ? Visualized Extremities Lt Humerus: ?Visualized Rt Humerus: ?Visualized Lt Forearm: ?Visualized Rt Forearm: ?Visualized Lt Hand: ? Visualized Rt Hand: ? Visualized Lt Femur: ?Visualized Rt Femur: ?Visualized Lt Lower Leg: ?Visualized Rt Lower Leg: ?Visualized Lt Foot: ? Visualized Rt Foot: ? Visualized Other Umbilical Cord: ?3 vessel cord CERVIX UTERUS ADNEXA: Left Ovary Size(cm) ? 2.6 ??x ?? 2.6 ?x ??2.1 ? Vol(ml): 7.4 Visualized Right Ovary Size(cm) ? 2.4 ??x ?? 2.6 ?x ??1.6 ? Vol(ml): 5.2 Visualized Procedure Note Angelica Perez MD - 12/05/2016 OBSTETRICS REPORT (Signed Final 12/05/2016 11:14 am) PATIENT INFO: ID #: [id number] : [birth year] (26 yrs)(F) Name: HERO MUÑIZ Visit Date: 12/05/2016 09:42 am PERFORMED BY: Performed By: Jenniffer Cheng RDMS Attending: Angelica Perez MD Referred By: DARLENE BRAGA [facility] Location: [place] SERVICE(S) PROVIDED: [facility] - Detailed Morphology - [id number] INDICATIONS: 19 weeks gestation of Z3A.19 Positive quad for DS OB HISTORY: Blood A+ Height: 5'1 Weight (lb): 174 BMI: 32.87 Type: EVALUATION: Num Of Fetuses: 1 Heart 155 Rate(bpm): Cardiac Activity: Observed, normal rhythm Presentation: Cephalic Placenta: Anterior P. Cord Insertion: Within Normal Limits Amniotic Fluid ALIN FV: Appropriate for gestational age --------- BIOMETRY: --------- BPD: 41.4 mm G.Age: 18w 4d OFD: 53.1 mm HC: 152.5 mm G.Age: 18w 2d AC: 128.8 mm G.Age: 18w 3d FL: 28.6 mm G.Age: 18w 5d HUM: 26.9 mm G.Age: 18w 4d CER: 19.1 mm G.Age: 18w 4d NFT: 3.8 mm NB: 4.9 mm LV: 6.9 mm CM: 5.0 mm CI: 78.0 % 70 - 86 FL/HC: 18.8 % 16.8 - 19.8 HC/AC: 1.18 1.09 - 1.39 FL/BPD: 69.1 % FL/AC: 22.2 % 20 - 24 Est. FW: 246 gm 0 lb 9 oz GESTATIONAL AGE: LMP: 19w 5d Date: 07/20/16 LISA: 04/26/17 U/S Today: 18w 4d LISA: 05/04/17 Best: 19w 5d Det. By: LMP (07/20/16) LISA: 04/26/17 TARGETED ANATOMY: Central Nervous System Calvarium/Cranial V.: Within Normal Limits Intracranial Rosie: Within Normal Limits Cavum: Visualized Parenchyma: Within Normal Limits Lateral Ventricles: Within Normal Limits Choroid Plexus: Within Normal Limits Cereb./Vermis: Within Normal Limits Cisterna Magna: Within Normal Limits Midline Falx: Within Normal Limits Spine Cervical: Visualized Thoracic: Visualized Lumbar: Visualized Sacral: Visualized Shape/Curvature: Visualized Head/Neck Face: Visualized Lips: Within Normal Limits Neck: Visualized Nuchal Fold: Within Normal Limits Nasal Bone: Present Profile: Visualized Orbits/Eyes: Visualized Mandible: Visualized Maxilla: Visualized Thorax Thoracic Contour: Visualized Lungs: Visualized 4 Chamber View: 4- chamber view navarro Cardiac Motion: Normal Rhythm Rt Outflow Tract: Visualized Lt Outflow Tract: Visualized Aortic Arch: Visualized Ductal Arch: Visualized SVC: Visualized Cardiac Callaway: Visualized Diaphragm: Visualized 3 Vessel View: Visualized IVC: Visualized Crossing: Visualized Abdomen Ventral Wall: Visualized Cord Insertion: Visualized Situs: Normal Stomach: Visualized Liver: Visualized Lt Kidney: Visualized Rt Kidney: Visualized Bladder: Visualized Bowel: Visualized Extremities Lt Humerus: Visualized Rt Humerus: Visualized Lt Forearm: Visualized Rt Forearm: Visualized Lt Hand: Visualized Rt Hand: Visualized Lt Femur: Visualized Rt Femur: Visualized Lt Lower Leg: Visualized Rt Lower Leg: Visualized Lt Foot: Visualized Rt Foot: Visualized Other Umbilical Cord: 3 vessel cord CERVIX UTERUS ADNEXA: Left Ovary Size(cm) 2.6 x 2.6 x 2.1 Vol(ml): 7.4 Visualized Right Ovary Size(cm) 2.4 x 2.6 x 1.6 Vol(ml): 5.2 Visualized IMPRESSION 2nd Trimester - Detailed Morphology - Summary Single intrauterine with a gestational age of 19w 5d based on LMP (07/20/16). Composite age based on the current ultrasound alone is 18w 4d. Amniotic fluid volume is appropriate for gestational age. Detailed anatomic evaluation was performed and no structural abnormalities are noted. Visualization limited due to maternal body habitus. I viewed the images and agree with the above interpretation. Angelica Perez MD Electronically Signed Final Report 12/05/2016 11:14 am Stacie Burnham MD IMG OB ORDERABL ES documented in this encounter Visit Diagnoses Diagnosis Abnormal findings on screening documented in this encounter Care Teams Umbrella Cutter Relationship Specialty Start Date End Date None None PCP - General 10/17/16 documented as of this encounter
--- OUTSIDE RECORDS SUMMARY | 2023-11-05 20:05 | XMS_ITS | Encounter Summary ---
Author Organization [facility] [place] [address] Care Team Providers Care Partner Marketing Manager Name Role Phone None Primary Care Provider Unavailabl e Reason for Visit * Reason Onset Date Comments Results 12/12/2016 [place] Encounter Details Date Type Department Care Team (Late st Contact Info) Description 12/12/2016 Telephone Obstetrics [place] [phone] Natividad Hanley, [facility] OBSTETRICS & [place] [address] Results ([place]) Social History Tobacco Use Types Packs/Day Years [...] on file documented as of this encounter Miscellaneous Notes * Telephone Encounter - Natividad Hanley, [place] - 12/12/2016 4:45 PM EDT Trinity was informed of the following are the results from her [place] test. This is a non-invasive test for aneuploidy that analyzes cell-free DNA in maternal blood. Based on a risk cut-off of 1/100 (1%), the detection rate for trisomy 21 is greater than 99%, trisomy 18 97.4% and trisomy 13 is 93.8%. Result: Trisomy 21 Low Probability Less than 1/10,000 Trisomy 18 Low Probability Less than 1/10,000 Trisomy 13 Low Probability Less than 1/10,000 Testing via amniocentesis is required for accurate diagnosis. Trinity was comfortable with these results and understands their limitations. She declines amniocentesis. Trinity asked about the sex. I called the lab and had them un blind it. I later called her back and left a message that the testing confirmed a female. documented in this encounter Plan of Treatment Not on file documented as of this encounter Visit Diagnoses Not on filedocumented in this encounter Care Teams Partner Marketing Manager Relationship Specialty Start Date End Date None None PCP - General 10/17/16 documented as of this encounter
--- OUTSIDE RECORDS SUMMARY | 2023-11-05 20:05 | XMS_ITS | Encounter Summary ---
Author Organization [facility] Address [facility] [place] [address] Care Team Providers Care Project Assistant Name Role Phone None Primary Care Provider Unavailabl e Reason for Visit * Reason Comments Routine Visit * Consultation (Routine) - Closed Specialty Diagnoses / Procedures Referred By Katey troy Referred To Contact Obstetrics and Gynecology Diagnoses hx PTD @ 36 wks Procedures MFM CONSULT Rosario Molina, [facility] [address] [place] [address] [place] [address] [facility] [employer] [address] [place] [address] Referral ID Status Reason Start Date Expiration Date Visits Re quested Visits Authorized [id number] Closed 10/12/2016 10/12/2017 1 1 Encounter Details Date Type Department Care Team (Late st Contact Info) Description 10/17/2016 1:00 PM EDT Office Visit Obstetrics [place] [phone] Angelica Perez MD [facility] OBSTETRICS [place] [address] H/O delivery, currently , second trimester Social History Tobacco Use Types Packs/Day Years [...] on file documented as of this encounter Last Filed Vital Signs Vital Sign Reading Time Taken Comments Blood Pressure 112/76 10/17/2016 12:52 PM EDT Pulse - - Temperature - - Respiratory Rate - - Oxygen Saturation - - Inhaled Oxygen Concentration - - Weight 79.1 kg (174 lb 4.8 oz) 10/17/2016 12:52 PM EDT Height - - Body Mass Index - - documented in this encounter Progress Notes * Angelica Perez MD - 10/17/2016 1:00 PM EDT Maternal Medicine Consult Note Trinity Muñiz is a 25 y.o. with an LISA of 05/02/16 who is at 12w5d gestation by LMP and ultrasound. She is seen in consultation at the request of Rosario Molina CNM for evaluation of prior . The patient reports that this has been uncomplicated to date. She has had a normal early diabetes screen. She had spontaneous labor at 36 weeks in her prior . She wonders if it was triggered by stress and over exertion. She arrived at the hospital at 7 cm with relatively little pain. Theremainder of labor was rapid. Record Review No additional issues Past Medical History: Diagnosis Date ??? Gestational diabetes 12/09/2010 ??? HSV (herpes simplex virus) infection ??? Hypothyroid age 11 ??? Obesity (BMI 30.0-39.9) Past Surgical History: Procedure Laterality Date ??? DENTAL SURGERY age 6 Obstetric History T0 L2 SAB0 TAB0 Ectopic0 Multiple0 Live Births1 # Outcome Date GA Lbr Ari/2nd Weight Sex Delivery Anes PTL Lv 2 Current 1 04/21/11 36w0d 2.977 kg (6 lb 9 oz) M Vag-Spont Y CÉSAR A family history. There is a family history of Charcot Latisha Tooth for which she has had genetic counseling in the past. She wonders if her brother is becoming symptomatic. The patient remains asymptomatic. Social: Denies illicit substance use or alcohol Current Outpatient Prescriptions Medication Sig Dispense Refill ??? VITAMIN PLUS LOW IRON 27 mg iron- 1 mg Tablet TAKE ONE TABLET BY MOUTH EVERY DAY 0 ??? levothyroxine (SYNTHROID) 175 mcg Tablet TAKE 1 TABLET BY MOUTH ONCE DAILY 1 No current facility-administered medications for this visit. No Known Allergies Review of Systems Constitutional: generally well Eyes: negative Ears Nose Throat:negative Respiratory: no cough, shortness of breath, or wheezing Cardiac: negative Gastrointestinal: Normal bowel movements, denies hematochezia, melena or pain. Genitourinary: Negative for dysuria Musculoskeletal: negative Skin: negative Psychiatric: Negative for anxiety, depression Endocrine:negative Bleeding: none Physical Exam Vitals: 10/17/16 1252 BP: 112/76 General: alert, well appearing, in no apparent distress Neurologic:alert, oriented, normal speech Psychiatric: affect is appropriate. Assessment and Recommendations: 25 y.o. at 12w5d weeks gestation. Previous idiopathic spontaneous . I discussed with the patient that the risk of recurrent delivery is approximately 20%, with women who delivered at earlier gestations being at higher risk. Studies of 17 hydroxy progesterone show an average decrease in risk of about 30%. This is administered weekly from starting at 16-20 weeks and continuing to 36 weeks. I also recommend cervical length by transvaginal ultrasound at 18 weeks and 20- 22 weeks depending on cervical length. I acknowledged that her was fairly late and she might have a lower chance of benefit from progesterone. There is an association with gestational diabetes for which she already has a risk. I shared with her that there is a newer study suggesting lack of benefit of 17 hydroxyprogesterone caproate. She plans to take all of this in consideration and discuss with her obstetrical care providers. I appreciate the opportunity to be involved in this patient's care and am available if further questions should arise. Angelica Perez MD 10/17/2016 Cc: Rosario Molina CNM This was a 30 minute encounter 20 minutes of which was face to face consultation regarding her riskof and potential use of progesterone the remainder in review of records. documented in this encounter Plan of Treatment Not on file documented as of this encounter Visit Diagnoses Diagnosis H/O delivery, currently , second trimester documented in this encounter Care Teams Project Assistant Relationship Specialty Start Date End Date None None PCP - General 10/17/16 documented as of this encounter
--- OUTSIDE RECORDS SUMMARY | 2023-11-05 20:05 | XMS_ITS | Encounter Summary ---
Author Organization [facility] Address [address] [place] [address] Care Team Providers Care Pillow Agent Name Role Phone Kumar Smith MD Primary Care Provider [phone] Encounter Details Date Type Department Care Team (Late st Contact Info) Description 10/06/2010 Results Only [facility] - [facility] [address] [place], [place] [id number] [place], [place] [address] Social History Tobacco Use Types Packs/Day Years [...] Diagnosis Comments PAP TEST- RESULT ONLY Routine 10/06/2010 0:00 EDT documented in this encounter Results * PAP TEST- RESULT ONLY (10/06/2010 0:00 EDT) Pathology Report: CYTOPATHOLOGY REPORT ? Reports generated via electronic interface contain original data; ? however they are lacking the format of the original report. ? Caution should be taken when reading/interpreti ng unformatted reports. ? Name: ? HERO MEDLEY ? Accession #: ? [id number] ? : ? 1990 (Age: 19) ??F ?Collect Date: ? 10/06/2010 ? Location: ? [facility] ? Receive Date: ? 10/07/2010 ? Provider: ?BRITT VEGA CNM ? Copy to: ? Specimen/Source: ?Pap Test, Cervix/Endocervix, ThinPrep Imaging System ? with manual evaluation ? Last Menstrual Period: ? 05/22/11 ? Menstrual/Pregnanc y Status: ? SPECIMEN ADEQUACY ? Satisfactory for Evaluation ? - transformation zone component present ? GENERAL CATEGORIZATION ? Epithelial Cell Abnormality ? INTERPRETATION ? Squamous Cell Abnormality - Atypical squamous cells, undetermined ? significance (ASC-US). ? EDUCATIONAL NOTES/RECOMMENDATI ONS ? [facility] recommends following the 2006 Consensus Guidelines for the Management of Women with Abnormal Cervical Cancer Screening Tests (JLGTD, ? 2007;11(4):201-222 ). ??Consensus guidelines are available online at ? www.ASCCP.org. ? Document reviewed and electronically signed by: ? ROGERS PRINCESS MBh ? Report Date: ??10/14/2010 10:50 ? End of Report ? YARELIS LOPEZ 10/06/2010 10/07/2010 Britt Vega CNM PATHOLOGY ORDERABLES [facility] [address] [place] [address] documented in this encounter Visit Diagnoses Not on filedocumented in this encounter Care Teams Pillow Agent Relationship Specialty Start Date End Date Kumar Smith MD [address] [place] [phone] PCP - General 07/17/08 07/19/17 documented as of this encounter
--- OUTSIDE RECORDS SUMMARY | 2023-11-05 20:05 | XMS_ITS | Clinical Summary ---
Author Organization [facility] Address [facility] [place] [address] Care Team Providers Care Electric Power Machine Operator Name Role Phone None Primary Care Provider Unavailabl e Allergies No known active allergies Medications Medication Sig Dispensed Refills Start Date End Date Status levothyroxine (SYNTHROID) 175 mcg Tablet TAKE 1 TABLET BY MOUTH ONCE DAILY 1 09/14/2016 Active VITAMIN PLUS LOW IRON 27 mg iron- 1 mg Tablet TAKE ONE TABLET BY MOUTH EVERY DAY 0 09/13/2016 Active Active Problems Problem Noted Date Diagnosed Date CIS - Acquired hypothyroidism 02/02/2002 Overview (05/24/2010): Primary hypothyroidism Hypothyroid Obesity (BMI 30-39.9) Overview (12/17/2011): Dx replacement utility run on deactivated IMO Dx [id number] HSV (herpes simplex virus) infection Resolved Problems Problem Noted Date Diagnosed Date Resolved Date Gestational diabetes 12/09/2010 017 Family History Medical History Relation Comments Neuropathy Father Isgmxnr-Qrfia-Qy oth Neuropathy Other Rxmehnw-Pszgk-Rl oth Relation Status Comments Father Other Social History Tobacco Use Types Packs/Day Years Used Date Smoking Tobacco: Every Day Cigarettes 0.5 3 Smokeless Tobacco: Never Tobacco Cessation:Ready to Q uit: No; Counseling Given: Yes Alcohol Use Standard Drinks/Week Comments No 0 (1 standard drink = 0.6 oz pur e alcohol) Sex and Gender Information Value Date Recorded Sex Assigned at Not on file Gender Identity Not on file Sexual Orientation Not on file Last Filed Vital Signs Vital Sign Reading Time Taken Comments Blood Pressure 144/80 04/13/2022 4:00 PM EST Pulse 78 04/13/2022 4:00 PM EST Temperature 36.2 ??C (97.2 ??F) 04/13/2022 11:[address] Respiratory Rate 16 04/13/2022 4:00 PM EST Oxygen Saturation 98% 04/13/2022 4:00 PM EST Inhaled Oxygen Concentration - - Weight 79.8 kg (176 lb) 04/13/2022 11:12 AM EST Height 154.9 cm (5' 1) 04/13/2022 11:12 AM EST Body Mass Index 33.25 04/13/2022 11:12 AM EST Plan of Treatment Health Maintenance Due Date Last Done Comments Pneumococcal Vaccine: At-Risk 5-64yrs (1 of 2 - PCV) 0 1996 HIV screen 2008 Hepatitis C Screening 2008 Lipid Screening 2008 Hepatitis B vaccine (0-59 yrs) (1) 2009 Tdap adult 2009 Tetanus vaccine 2009 HPV test 2020 PAP Smear 2020 Covid-19 Vaccine (1 - 2022-24 season) 2022 Influenza (Flu) vaccine (1 o f 1 - Influenza standard series) 11/18/2023 Care Teams Electric Power Machine Operator Relationship Specialty Start Date End Date None None PCP - General 10/17/16
--- OUTSIDE RECORDS SUMMARY | 2023-11-05 20:05 | XMS_ITS | Encounter Summary ---
[place] [address] Care Team Providers Care Paste Up Artist Name Role Phone None Primary Care Provider Unavailabl e Encounter Details Date Type Department Care Team (Late st Contact Info) Description 05/30/2022 7:10 PM EDT Ancillary [place] [phone] Vinnie Scott, [address] [place] [address] Social History Tobacco Use Types Packs/Day Years [...] Procedure Name Priority Date/Time Associated Diagnosis Comments FILM LIBRARY - STORAGE ONLY CT NECK Routine 05/30/2022 7:05 PM EDT documented in this encounter Results * Film Library- Storage Only CT Neck (05/30/2022 7:05 PM EDT) Narrative RAD - 05/30/2022 7:05 PM EDT This exam is auto-finalizing. It's purpose is for storage only. Vinnie Scott DO [facility] FILM LIBRARY OR DERABLES [place], [place] documented in this encounter Visit Diagnoses Not on filedocumented in this encounter Care Teams Paste Up Artist Relationship Specialty Start Date End Date None None PCP - General 10/17/16 documented as of this encounter
--- OUTSIDE RECORDS SUMMARY | 2023-11-05 20:05 | XMS_ITS | Encounter Summary ---
Author Organization [facility] [place] [address] Care Team Providers Care Seater Assembler Name Role Phone Kumar Smith MD Primary Care Provider [phone] Reason for Visit * Reason Comments Family History Ultrasound Encounter Details Date Type Department Care Team (Late st Contact Info) Description 12/14/2010 12:00 PM [place] [address] Lydia Flynn MD [facility] [address] (Primary Dx); Family history of Mubdput-Usaci-Lflqp disease; Obesity complicating ; Gestational diabetes Social History Tobacco Use Types Packs/Day Years [...] on file documented as of this encounter Progress Notes * Lydia Flynn MD - 12/14/2010 12:12 PM EDT Diagnosis/Maternal Medicine Consult Note Trinity Muñiz is a 20 y.o. year old female with an LISA of 05/18/11 who is at 18w3d weeks gestation. She is referred at the request of Britt Vega CNM for evaluation of family history of Charcot Latisha Tooth syndrome. She was seen today for maternal- medicine consultation, ultrasound evaluation and genetic counseling with Carroll Irby MS. Review of Systems Constitutional:feels well Movement: normal Contractions: none Leaking: None Bleeding: none now Patient Active Problem List Diagnoses Date Noted ??? Hypothyroid [244.9AR] ??? Obesity (BMI 30.0-39.9) [278.00AE] ??? HSV (herpes simplex virus) infection [054.9BJ] ??? Gestational diabetes [648.80P] 12/09/2010 ??? CIS - Acquired hypothyroidism [94097] 02/02/2002 Past Medical History Diagnosis Date ??? Hypothyroid age 11 ??? Obesity (BMI 30.0-39.9) ??? HSV (herpes simplex virus) infection ??? Gestational diabetes 12/09/2010 Past Surgical History Procedure Date ??? Dental surgery age 6 Family History Problem Relation Age of Onset ??? Neuropathy Father Ncgwzeu-Zleeb-Giulf ??? Neuropathy Paternal Aunt Dspspcj-Melbl-Wfmrb Social History Occupational History ??? Not on file. Social History Main Topics ??? Smoking status: Current Everyday Smoker -- 0.5 packs/day for 3 years Types: Cigarettes ??? Smokeless tobacco: Never Used ??? Alcohol Use: No ??? Drug Use: No ??? Sexually Active: Yes -- Male partner(s) OB History Grav Para Term Abortions TAB SAB Ect Mult Living 1 # Outc Date GA Lbr Ari/2nd Wgt Sex Del Anes PTL Lv 1 CUR Current outpatient prescriptions Medication Sig Dispense Refill ??? levothyroxine (SYNTHROID) 100 mcg tablet Take 100 mcg by mouth daily. ??? Lusohxsk-Vi-Ffa-Fe-FA ( VITAMIN) Tab Take by mouth. ??? levothyroxine (SYNTHROID) 88 mcg tablet 88 mcg, PO, Once daily ??? drospirenone-ethinyl estradiol (RAMON 28) 3-20 mg-mcg per tablet ??? oxybutynin (DITROPAN XL) 15 mg 24 hr tablet 15 MG = 1 Tablet(s), PO, Once daily No Known Allergies Ultrasound Date: 12/14/2010 Growth appropriate for gestational age Amniotic fluid volume normal Placenta posterior Presentation breech anatomy appears normal, although limited by maternal habitus and lie. LVOT was unable to be visualized adequately. Physical Exam General: alert, well appearing, in no apparent distress, oriented to person, place and time, overweight HEENT: normocephalic, atraumatic Abdomen: Soft, nontender Extremities: no edema Neurologic:alert, oriented, normal speech, no focal findings or movement disorder noted Psychiatric: Affect is Appropriate. Assessment and Recommendations: 20 y.o. year old female at 18w3d weeks gestation. CMT: The patient does not have a diagnosis of CMT at this time, but her risk may be as high as 50%.It is prudent to avoid certain medications in individuals with CMT, thankfully, the majority of these medications are not used commonly during . A list of these medications will be included with this note. Gestational diabetes: The patient reports she was diagnosed with gestational diabetes on 12/09/2010.Due to this early diagnosis, a echocardiogram is recommended. I have taken the liberty of scheduling this at approximately 22-24 weeks EGA. This will also allow completion of the cardiac anatomy evaluation, which was unable to be visualized today. Obesity: After a normal ultrasound evaluation, obese women without diabetes may still have up to a 1% risk of a major anomaly, including some anomalies not detectable by ultrasound. I appreciate the opportunity to be involved in this patients care, and am available if further questions should arise. Lydia FLYNN MD 12/14/2010 Cc: Britt Vega CNM, with copy of ultrasound report documented in this encounter Plan of Treatment Not on file documented as of this encounter Results * Echocardiogram (01/12/2011 12:13 PM EDT) Anatomical Region Laterality Modality Other 01/12/2011 Narrative 01/12/2011 1:07 PM EDT Procedure: ? Pediatric Echocardiogram ? Patient: ? GALINDO MONAHAN R ? (Age): 1990(20) Med Rec#: ?[id number] ?Sex: ?F ? Site Loc: ?DH ?Ht / Wt: ??(cm)/(kg) ? Pt. Loc: ? Pediatrics ?BSA: ? Study Date: ?01/12/2011 ?Pt. Type: Outpatient Study Quality: ? Tape: ? Referring: Gavino Flynn Referring: Britt Vega Farmworker Machine: Chris Curtis Diagnosis:CPT Code(s): ?? Echo Full (05219), ?? Doppler Full (73078), ??Color Doppler (82147), Indication(s): ??Maternal diabetes Rhythm: SUMMARY: 1. A echocardiogram was performed at 22 weeks gestation due to maternal diabetes. ??Fair quality images were obtained. ?? 2. No cardiac structural abnormalities are identified. ??Chamber sizes, ventricular function, arterial and venous connections are all normal. The Doppler exam is normal. ??No arrhythmias are noted during the exam. There is no evidence of hydrops. ??This is a normal echocardiogram. ?? 3. The limitations of echocardiography include the inability to diagnose patent ductus arteriosus, some atrial and ventricular septal defects, minor valve abnormalities and coarctation. ??No specific or cardiac follow-up is required on the basis of this study. FINDINGS: Atria And Veins ?At least one pulmonary vein from each side enters the left atrium. ?No pulmonary venous anomalies are detected. Atrioventricular Valves ?The tricuspid valve appears normal. ?The annulus measures approximately 6 mm. (Z-Score: -0.45). ?No tricuspid valve structural abnormality is identified. ?The mitral valve structure appears normal. ?The annulus measures approximately 6 mm. (Z-Score: -0.44). ?No mitral valve structural abnormality is identified. Ventricles ?The right ventricle is normal sized. ?Right ventricular systolic function is normal. ?The left ventricle is normal sized. ?Left ventricular systolic function is normal. Ventricular Septum ?The interventricular septum appears to be intact. Semilunar Valves ?No pulmonary valve structural abnormalities seen. ?The pulmonary annulus size appears normal sized. ? and measures 4.9 mm. (Z-Score: 1.78). ?No aortic valve structural abnormalities seen. ?The aortic annulus size appears normal. ? and measures approximately 3.8 mm. (Z-Score: 1.11). Great Vessels ?The great arteries appear normally related. ?The main pulmonary artery appears normal sized. ?The right pulmonary artery appears normal sized. ?The left pulmonary artery appears normal sized. ?The aortic arch appears to be intact. ?The ascending aorta is normal sized. ? measuring 3.7 mm. (Z-Score: -0.09). ?The aortic isthmus is normal sized. ?The descending aorta is normal sized. Effusion ?There is no evidence of a pericardial effusion. ?No evidence of hydrops. All Z scores are estimated This report has been electronically signed by: Shanice Parker MD ? 01/12/2011 13:06:44 Images reviewed and interpretation verified [facility] Procedure Note Shanice Parker MD - 01/12/2011 Procedure: Pediatric Echocardiogram Patient: GALINDO Palencia (Age): 1990(20) Med Rec#: [id number] Sex: F [facility] Loc: [facility] Ht / Wt: (cm)/(kg) Pt. Loc: Pediatrics BSA: Study Date: 01/12/2011 Pt. Type: Outpatient Study Quality: Tape: Referring: Gavino Flynn Referring: Britt Vega Farmworker Machine: Chris Curtis Diagnosis:CPT Code(s): Echo Full (09235), Doppler Full (13193), Color Doppler (29178), Indication(s): Maternal diabetes Rhythm: SUMMARY: 1. A echocardiogram was performed at 22 weeks gestation due to maternal diabetes. Fair quality images were obtained. 2. No cardiac structural abnormalities are identified. Chamber sizes, ventricular function, arterial and venous connections are all normal. The Doppler exam is normal. No arrhythmias are noted during the exam. There is no evidence of hydrops. This is a normal echocardiogram. 3. The limitations of echocardiography include the inability to diagnose patent ductus arteriosus, some atrial and ventricular septal defects, minor valve abnormalities and coarctation. No specific or cardiac follow-up is required on the basis of this study. FINDINGS: Atria And Veins At least one pulmonary vein from each side enters the left atrium. No pulmonary venous anomalies are detected. Atrioventricular Valves The tricuspid valve appears normal. The annulus measures approximately 6 mm. (Z-Score: -0.45). No tricuspid valve structural abnormality is identified. The mitral valve structure appears normal. The annulus measures approximately 6 mm. (Z-Score: -0.44). No mitral valve structural abnormality is identified. Ventricles The right ventricle is normal sized. Right ventricular systolic function is normal. The left ventricle is normal sized. Left ventricular systolic function is normal. Ventricular Septum The interventricular septum appears to be intact. Semilunar Valves No pulmonary valve structural abnormalities seen. The pulmonary annulus size appears normal sized. and measures 4.9 mm. (Z-Score: 1.78). No aortic valve structural abnormalities seen. The aortic annulus size appears normal. and measures approximately 3.8 mm. (Z-Score: 1.11). Great Vessels The great arteries appear normally related. The main pulmonary artery appears normal sized. The right pulmonary artery appears normal sized. The left pulmonary artery appears normal sized. The aortic arch appears to be intact. The ascending aorta is normal sized. measuring 3.7 mm. (Z-Score: -0.09). The aortic isthmus is normal sized. The descending aorta is normal sized. Effusion There is no evidence of a pericardial effusion. No evidence of hydrops. All Z scores are estimated This report has been electronically signed by: Shanice Parker MD 01/12/2011 13:06:44 Images reviewed and interpretation verified [facility] E Soo Flynn MD ECHO ORDERABLES documented in this encounter Visit Diagnoses Diagnosis - Primary state, incidental Family history of Nmpyhci-Prtks-Czbts disease Family history of other neurological diseases Obesity complicating Obesity complicating , childbirth, or the puerperium, unspecified as to episode of care or not applicable Gestational diabetes Abnormal maternal glucose tolerance, complicating , childbirth, or the puerperium, unspecified as to episode of care state, incidental Obesity complicating Obesity complicating , childbirth, or the puerperium, unspecified as to episode of care or not applicable Gestational diabetes Abnormal maternal glucose tolerance, complicating , childbirth, or the puerperium, unspecified as to episode of care Obesity complicating , childbirth, or the puerperium, antepartum condition or complication(099.13) Obesity complicating , childbirth, or the puerperium, antepartum condition or complication Abnormal maternal glucose tolerance, complicating , childbirth, or the puerperium, unspecified as to episode of care ERRONEOUS ENCOUNTER--DISREGARD documented in this encounter Care Teams Seater Assembler Relationship Specialty Start Date End Date Kumar Smith MD PCP - General 02/08/10 10/16/16 documented as of this encounter
--- OUTSIDE RECORDS SUMMARY | 2023-11-05 20:05 | XMS_ITS | Clinical Summary ---
Author Organization [facility] Address [address] [place] [address] Care Team Providers Care Shower Doors And Panels Fabricator Name Role Phone Yariel Ferreira [facility] Primary Care Provider [phone] Allergies Active Allergy Reactions Criticality Noted Date Comments Fluoxetine 10/27/2023 Mirtazapine 10/27/2023 Medications Medication Sig Dispensed Refills Start Date End Date Status methocarbamoL (ROBAXIN) 750 mg tablet Take 1 Tablet by mouth 3 times daily for 3 days. 9 Tablet 10/27/2023 10/30/2023 Encounters Date Type Department Care Team Description 10/27/2023 19:41 EDT - 10/27/2023 22:49 EDT Emergency [facility] [place] [address], [place] [id number] Kendall Dillard MD RUQ pain (Primary Dx) Discharge Disposition: Home or Self Care from Last 3 Months Social History Tobacco Use Types Packs/Day Years [...] Index 42.51 10/27/20231938 EDT Plan of Treatment Health Maintenance Due Date Last Done Comments Hepatitis C Screen 1990 Hepatitis B Vaccine (1 of 3 - 19+ 3-dose series) 11/21 COVID-19 Vaccine (2022- season) 2022 Procedures Procedure Name Priority Date/Time Associated Diagnosis [...] above interpretation and agree with the findings. [id number] Narrative 10/28/2023 8:23 EDT US ABDOMEN LIMITED [...] Normal. OTHER FINDINGS: None. Resulting Agency Comment [id number] Procedure Note Jose Roberto Seo MD - [...] the above interpretation andagree with the findings. [id number] Massimo Medel PA-C IMG US ORDERAB LES * POCT TEST, CLINITEK (10/27/2023 20:55 EDT) UPT Result Negative Negative 10/27/2023 21:01 EDT [facility] HN LAB COMMENT (CLINITEK, UPT) Test performed at Emergency Department 10/27/2023 21:01 EDT [facility] Comment:False negative resul ts may occur in women who are beyond 5-8 weeks gestation. Diagnosis of should be based on a correlation of test results with typical clinical signs and symptoms. Urine URINE SPECIMEN OBTAINED BY CLEAN CATCH PROCEDURE / Unknown 10/27/2023 20:55 EDT 10/27/2023 21:01 EDT Massimo Medel PA-C POINT OF CARE TEST ORDERABLES [facility] [address] [place] [id number] * (ABNORMAL) POCT URINE DIPSTICK, CLINITEK (10/27/2023 20:55 EDT) Color, UA Yellow Yellow 10/27/2023 20:57 EDT [facility] Clarity, UA Clear Clear 10/27/2023 20:57 EDT [facility] Glucose, UA Negative Negative mg/dL 10/27/2023 20:57 EDT [facility] Bilirubin, UA Negative Negative 10/27/2023 20:57 T [facility] Ketones, UA Negative Negative 10/27/2023 20:57 T [facility] Specific [place], Urine 1.020 1.001 - 1.030 10/27/2023 20:57 EDT [facility] Blood, UA 1+(A) Negative 10/27/2023 20:57 EDT [facility] pH, UA 6.5 <8.5 10/27/2023 20:57 EDT [facility] Protein, UA Negative Negative mg/dL 10/27/2023 20:57 EDT [facility] Urobilinogen, UA 1.0 0.2 - 1.0 mg/dL 10/27/2023 20:57 EDT [facility] Nitrite, UA Negative Negative 10/27/2023 20:57 EDT [facility] Leuk Esterase Negative Negative 10/27/2023 20:57 EDT [facility] HN LAB COMMENT (CLINITEK, UR) Test performed at Emergency Department 10/27/2023 20:57 EDT [facility] Urine URINE SPECIMEN OBTAINED BY CLEAN CATCH PROCEDURE / Unknown 10/27/2023 20:55 EDT 10/27/2023 20:57 EDT Massimo Medel PA-C POINT OF CARE TEST ORDERABLES Performing Organization Address [facility] Co de Phone Number [facility] [address] [place] [address] * POCT CSN BARCODE URINE PREG TEST (10/27/2023 20:51 EDT) Urine URINE SPECIMEN OBTAINED BY CLEAN CATCH PROCEDURE / Unknown Urine Collect / Unknown 10/27/2023 20:51 EDT 10/27/2023 20:51 EDT Massimo Medel PA-C LAB INFO SERVI CE AND SUPPORT & PHONE RESULT Performing Organization Address [facility] Co de Phone Number [facility] [address], [place] [phone] * POCT CSN BARCODE URINE DIPSTICK (10/27/2023 20:51 EDT) Urine URINE SPECIMEN OBTAINED BY CLEAN CATCH PROCEDURE / Unknown Urine Collect / Unknown 10/27/2023 20:51 EDT 10/27/2023 20:51 EDT Massimo Jeff Gianfranco PA-C LAB INFO SERVI CE AND SUPPORT & PHONE RESULT Performing Organization Address City/[facility]/ZIP Co de Phone Number [facility] [address], [place] [phone] * (ABNORMAL) COMPLETE BLOOD COUNT (10/27/2023 20:51 EDT) WBC 9.88 4.00 - 12.40 K/cmm 10/27/2023 21:04 T [facility] RBC 3.53(L) 3.86 - 5.04 M/cmm 10/27/2023 21:04 [facility] Hemoglobin 10.4(L) 11.6 - 15.2 g/dL 10/27/2023 21:04 [facility] HCT 31.1(L) 34.9 - 44.4 % 10/27/2023 21:04 [facility] MCV 88 81 - 98 fL 10/27/2023 21:04 [facility] MCH 29.5 26.7 - 33.3 pg 10/27/2023 21:04 [facility] MCHC 33.4 32.1 - 35.9 g/dL 10/27/2023 21:04 [facility] RDW-CV 15.4(H) <14.7 % 10/27/2023 21:04 [facility] RDW-SD 49.6 <50.4 fl 10/27/2023 21:04 [facility] PLT 327 141 - 377 K/cmm 10/27/2023 21:04 [facility] MPV 9.3(L) 9.5 - 12.7 fL 10/27/2023 21:04 [facility] Blood VENOUS BLOOD / Unknown Venipuncture / Unknown 10/27/2023 20:51 EDT 10/27/2023 20:54 EDT David Marie MD HEMATOLOGY & PF4 ORDERABLES Performing Organization Address City/[facility]/ZIP Co de Phone Number [facility] [address] [place] [address] * LIPASE (10/27/2023 20:04 EDT) Lipase 55 <251 U/L 10/27/2023 20:24 [facility] Blood VENOUS BLOOD / Unknown Venipuncture / Unknown 10/27/2023 20:04 EDT 10/27/2023 20:07 EDT David Marie MD CHEMISTRY & BLOOD GAS ORDERABLES [facility] [address] [place] [address] * COMPREHENSIVE METABOLIC PANEL (CMP) (10/27/2023 20:04 EDT) Pathologist [facility] Sodium 139 136 - 145 mmol/L 10/27/2023 20:27 [facility] Potassium 4.2 3.5 - 5.0 mmol/L 10/27/2023 20:27 [facility] Comment:Slight hemolysis emili ntified, interpret with caution as hemolysis will elevate potassium result. Chloride 103 96 - 110 mmol/L 10/27/2023 20:27 [facility] CO2 Total 28 22 - 32 mmol/L 10/27/2023 20:27 [facility] Glucose 96 70 - 99 mg/dl 10/27/2023 20:27 [facility] BUN 12 10 - 26 mg/dL 10/27/2023 20:27 [facility] Comment: Slight hemolysis identified, interpret with caution as results may be affected due to hemolysis. Creatinine 0.78 0.52 - 1.04 mg/dL 10/27/2023 20:27 [facility] eGFR 103 >60 mL/min/1.7 3m2 10/27/2023 20:27 [facility] Total Protein 7.6 6.3 - 8.2 g/dL 10/27/2023 20:27 [facility] Comment:Slight hemolysis emili ntified, interpret with caution as results may be affected due to hemolysis. Albumin 4.6 3.4 - 4.9 g/dL 10/27/2023 20:27 [facility] Comment:Slight hemolysis emili ntified, interpret with caution as results may be affected due to hemolysis. Alkaline Phosphatase 41 38 - 126 U/L 10/27/2023 20:27 [facility] Comment:Slight hemolysis emili ntified, hemolysis will decrease ALKP result. Interpret with caution as results may be affected due to hemolysis. AST 32 15 - 46 U/L 10/27/2023 20:27 [facility] Comment:Slight hemolysis emili ntified, interpret with caution as results may be affected due to hemolysis. ALT 19 <35 U/L 10/27/2023 20:27 [facility] Bilirubin, Total 0.6 <1.4 mg/dL 10/27/19 20:27 [facility] Calcium 9.2 8.5 - 10.5 mg/dL 10/27/2023 20:27 [facility] Albumin/Globulin Ratio 1.5 1.0 - 2.5 10/27/2023 20:27 [facility] Anion Gap 8 5 - 14 mmol/L 10/27/2023 20:27 [facility] Blood VENOUS BLOOD / Unknown Venipuncture / Unknown 10/27/2023 20:04 EDT 10/27/2023 20:07 EDT David Marie MD CHEMISTRY & BLOOD GAS ORDERABLES [facility] [address] [place] [address] from Last 3 Months Care Teams Shower Doors And Panels Fabricator Relationship Specialty Start Date End Date Yariel Ferreira RPA [address] [place] [id number] PCP - General Family Medicine - Primary Care 10/27/23
--- OUTSIDE RECORDS SUMMARY | 2023-11-05 20:05 | XMS_ITS | Encounter Summary ---
Author Organization [facility] Address [address] [place] [address] Care Team Providers Care Food Service Team Member Name Role Phone Kumar Smith MD Primary Care Provider [phone] Reason for Visit * Reason Onset Date Comments Other 08/23/2011 Questions about a potentia donor. If donor is a match and lives out of state how does it work. Encounter Details Date Type Department Care Team (Late st Contact Info) Description 08/23/2011 Telephone [facility] - [address] [place], [place] [address] David Manzano MD [address] [place] [phone] Other (Questions about a potentia donor. If donor is a match and lives out of state how does it work.) Social History Tobacco Use Types Packs/Day Years Used Date Smoking Tobacco: Never Assessed Sex and Gender Information Value Date Recorded Sex Assigned at Not on file Gender Identity Female 10/27/2023 20:13 EDT Sexual Orientation Not on file documented as of this encounter Miscellaneous Notes * Telephone Encounter - Beverly Smith RN - 08/24/2011 1225 EDT Message left to call back. documented in this encounter Plan of Treatment Not on file documented as of this encounter Visit Diagnoses Not on filedocumented in this encounter Care Teams Food Service Team Member Relationship Specialty Start Date End Date Kumar Smith MD [address] [place] [phone] PCP - General 07/17/08 07/19/17 documented as of this encounter
--- OUTSIDE RECORDS SUMMARY | 2023-11-05 20:05 | XMS_ITS | Encounter Summary ---
[place] [address] Care Team Providers Care Facial Operator Name Role Phone Kumar Smith MD Primary Care Provider [phone] Encounter Details Date Type Department Care Team (Late st Contact Info) Description 12/14/2010 10:13 AM EDT - 12/14/2010 11:59 PM EDT Hospital [place] [address] CLINIC, Moises Gan MD [address] [place] [id number] Discharge Disposition: Home Social History Tobacco Use [...] Refills Start Date End Date levothyroxine (SYNTHROID) 100 mcg tablet Take 100 mcg by mouth daily. 10/17/2016 Lqrmbytm-Uf-Vrv-Fe-FA ( VITAMIN) Tab Take by mouth. 03/2016 levothyroxine (SYNTHROID) 88 mcg tablet 88 mcg, PO, Once daily 06/14/2007 10/17/2016 drospirenone-ethinyl estradiol (RAMON 28) 3-20 mg-mcg per tablet 06/14/2007 10/17/2016 oxybutynin (DITROPAN XL) 15 mg 24 hr tablet 15 MG = 1 Tablet(s), PO, Once daily 06/14/2007 10/17/2016 documented as of this encounter Miscellaneous Notes * Miscellaneous - Provider, Scanning - 01/16/2011 9:31 AM EDT documented in this encounter Plan of Treatment Not on file documented as of this encounter Procedures Procedure Name Priority Date/Time Associated Diagnosis Comments US OB DETAILED MORPHOLOGY Routine 12/14/2010 12:40 PM EDT documented in this encounter Results * US OB TARGETED MORPHOLOGY (12/14/2010 12:40 PM EDT) Anatomical Region Laterality Modality Pelvis, Abdomen Ultrasound 12/14/2010 12:4 0 PM EDT Narrative 12/14/2010 12:42 PM EDT ? OBSTETRICS REPORT ? (Signed Final 12/14/2010 12:41 pm) Patient Info ID: ?[id number] ?: ??[birth year] (20 yrs)(F) Name: ?HERO MUÑIZ ?Visit Date: 12/14/2010 12:27 pm Performed By Performed By: ?? Veronica ??RDMS, BS, RTR, [place] Attending: ?Casey NASCIMENTO, E ??Soo Referred By: ?BRIGETTE BALDWIN CNM Accession#: ? [id number] OB History BMI: ?35.3 Service(s) Provided [facility] - Targeted Morphology - Genetics - ? [id number] Indications Family history Fzhbhqn-Ihhrz-Ytzhb Targeted morphology Evaluation Num Of Fetuses: ?1 Heart Rate: ??163 ? bpm Cardiac Activity: ??Observed, normal rhythm Presentation: ?Breech Placenta: ?Posterior P. Cord ?Within Normal Limits Insertion: Amniotic Fluid ALIN FV: ?Within normal limits -------- Biometry -------- BPD: ?39.6 ??mm ?G. Age: ?? 18w 0d OFD: ?53.3 ??mm HC: ?149.5 ??mm ?G. Age: ?? 18w 0d AC: ?128.2 ??mm ?G. Age: ?? 18w 3d FL: ? 25.7 ??mm ?G. Age: ?? 17w 6d HUM: ?26.2 ??mm ?G. Age: ?? 18w 1d CER: ?18.4 ??mm ?G. Age: ?? 18w 1d CI: ?74.3 ??% ? 70 - 86 FL/HC: ? 17.2 ??% ? 15.8 - 18 HC/AC: ? 1.17 ?1. - 04.16 FL/BPD: ?64.9 ??% FL/AC: ? 20.0 ??% ? - Est. FW: ? 224 ??gm ?0 lb 8 oz Gestational Age LMP: ? 18w 3d ?Date: ??08/07/10 ? LISA: ?? 05/14/11 U/S Today: ? 18w 1d ?LISA: ?? 05/16/11 Best: ?17w 6d ?? Det. By: ??U/S C R L ?LISA: ?? 05/18/11 ? (10/04/10) ------- Anatomy ------- Cranium: ? Visualized Targeted Anatomy Central Nervous System Calvarium: ?Within Normal Limits Intracranial: ? Within Normal Limits Lat. Ventricles: ?Within Normal Limits Cerebellum: ? Within Normal Limits Choroid Plexus: ? Within Normal Limits Cisterna Magna: ? Within Normal Limits Spine Cervical: ? Visualized Thoracic: ? Visualized Lumbar: ? Visualized Sacral: ? Visualized Head/Neck Face: ? Limited Views Lips: ? Limited Views Nuchal Fold: ?Within Normal Limits Thorax Four Chamber: ? Limited Views Cardiac Motion: ? Normal Rhythm R Outflow Tract: ?Limited Views L Outflow Tract: ?Not Visualized Cardiac Holden: ? Visualized Diaphragm: ?Visualized Abdomen Ventral Wall: ? Visualized Stomach: ?Visualized Lt Kidney: ?Dilated Rt Kidney: ?Dilated Bladder: ?Visualized Extremities Lt Humerus: ? Within Nomal Limits Rt Humerus: ? Within Normal Limits Lt Forearm: ? Within Normal Limits Rt Forearm: ? Within Normal Limits Lt Hand: ?Within Normal Limits Rt Hand: ?Within Normal Limits Lt Femur: ? Within Normal Limits Rt Femur: ? Within Normal Limits Lt Lower Leg: ? Within Normal Limits Rt Lower Leg: ? Within Normal Limits Lt Foot: ?Visualized Rt Foot: ?Visualized Other Umbilical Cord: ? 3 vessel cord Cord Insertion: ? WIthin Normal Limits Comment: ?NB: 6mm; NFT: 3.9mm Cervix Uterus Adnexa Left Ovary: ?? Not visualized Right Ovary: ??Not visualized -------- Comments -------- Technically limited due to maternal body habitus Impression 2nd Trimester - Targeted Morphology- Summary Single intrauterine with a gestational age of 17w 6d based on early outside ultrasound. Composite age based on the current ultrasound alone is 18w 1d. Amniotic fluid volume is within normal limits. Current growth parameters are consistent indicating normal growth. Detailed anatomic evaluation was performed and is limited by maternal habitus and lie, although no abnormalities were appreciated. I viewed the images and agree with the above interpretation. Thank you for allowing us to participate in the care of HERO MUÑIZ. Please do not hesitate to call if you have any questions. ? Odessa Peña MD Electronically Signed Final Report ?? 12/14/2010 12:41 pm Procedure Note Odessa Peña MD - 12/14/2010 OBSTETRICS REPORT (Signed Final 12/14/2010 12:41 pm) Patient Info ID: [id number] : [birth year] (20 yrs)(F) Name: HERO MUÑIZ Visit Date: 12/14/2010 12:27 pm Performed By Performed By: Veronica JHA, BS, RTR, [place] Attending: Odessa Peña MD Referred By: BRIGETTE BALDWIN CNM OB History BMI: 35.3 Service(s) Provided [facility] - Targeted Morphology - Genetics - [id number] Indications Family history Hlcdzza-Pnzst-Zwuzi Targeted morphology Evaluation Num Of Fetuses: 1 Heart Rate: 163 bpm Cardiac Activity: Observed, normal rhythm Presentation: Breech Placenta: Posterior P. Cord Within Normal Limits Insertion: Amniotic Fluid ALIN FV: Within normal limits -------- Biometry -------- BPD: 39.6 mm G. Age: 18w 0d OFD: 53.3 mm HC: 149.5 mm G. Age: 18w 0d AC: 128.2 mm G. Age: 18w 3d FL: 25.7 mm G. Age: 17w 6d HUM: 26.2 mm G. Age: 18w 1d CER: 18.4 mm G. Age: 18w 1d CI: 74.3 % 70 - 86 FL/HC: 17.2 % 15.8 - 18 HC/AC: 1.17 1.07 - 1.29 FL/BPD: 64.9 % FL/AC: 20.0 % 20 - 24 Est. FW: 224 gm 0 lb 8 oz Gestational Age LMP: 18w 3d Date: 08/07/10 LISA: 05/14/11 U/S Today: 18w 1d LISA: 05/16/11 Best: 17w 6d Det. By: U/S David Alas LISA: 05/18/11 (10/04/10) ------- Anatomy ------- Cranium: Visualized Targeted Anatomy Central Nervous System Calvarium: Within Normal Limits Intracranial: Within Normal Limits Lat. Ventricles: Within Normal Limits Cerebellum: Within Normal Limits Choroid Plexus: Within Normal Limits Cisterna Magna: Within Normal Limits Spine Cervical: Visualized Thoracic: Visualized Lumbar: Visualized Sacral: Visualized Head/Neck Face: Limited Views Lips: Limited Views Nuchal Fold: Within Normal Limits Thorax Four Chamber: Limited Views Cardiac Motion: Normal Rhythm R Outflow Tract: Limited Views L Outflow Tract: Not Visualized Cardiac Holden: Visualized Diaphragm: Visualized Abdomen Ventral Wall: Visualized Stomach: Visualized Lt Kidney: Dilated Rt Kidney: Dilated Bladder: Visualized Extremities Lt Humerus: Within Nomal Limits Rt Humerus: Within Normal Limits Lt Forearm: Within Normal Limits Rt Forearm: Within Normal Limits Lt Hand: Within Normal Limits Rt Hand: Within Normal Limits Lt Femur: Within Normal Limits Rt Femur: Within Normal Limits Lt Lower Leg: Within Normal Limits Rt Lower Leg: Within Normal Limits Lt Foot: Visualized Rt Foot: Visualized Other Umbilical Cord: 3 vessel cord Cord Insertion: WIthin Normal Limits Comment: NB: 6mm; NFT: 3.9mm Cervix Uterus Adnexa Left Ovary: Not visualized Right Ovary: Not visualized -------- Comments -------- Technically limited due to maternal body habitus Impression 2nd Trimester - Targeted Morphology- Summary Single intrauterine with a gestational age of 17w 6d based on early outside ultrasound. Composite age based on the current ultrasound alone is 18w 1d. Amniotic fluid volume is within normal limits. Current growth parameters are consistent indicating normal growth. Detailed anatomic evaluation was performed and is limited by maternal habitus and lie, although no abnormalities were appreciated. I viewed the images and agree with the above interpretation. Thank you for allowing us to participate in the care of HERO MUÑIZ. Please do not hesitate to call if you have any questions. Odessa Peña MD Electronically Signed Final Report 12/14/2010 12:41 pm Britt Vega CNM IM US OB ORDERABLES documented in this encounter Visit Diagnoses Not on filedocumented in this encounter Care Teams Facial Operator Relationship Specialty Start Date End Date Kumar Smith MD PCP - General 02/08/10 10/16/16 documented as of this encounter
--- OUTSIDE RECORDS SUMMARY | 2023-11-05 20:05 | XMS_ITS | Encounter Summary ---
Author Organization [facility] [place] [address] Care Team Providers Care Varnish Maker Helper Name Role Phone None Primary Care Provider Unavailabl e Encounter Details Date Type Department Care Team (Late st Contact Info) Description 11/24/2016 Orders Only Obstetrics [place] [address] Stacie Burnham MD [facility] [address] [place]STET[place]ICS [place] [address] Abnormal findings on screening Social History Tobacco Use Types Packs/Day Years [...] documented as of this encounter Results * US OB Detailed [...] 11:14 am) PATIENT INFO: ID #: ? [id number] ?: ??[birth year] (26 yrs)(F) Name: ? HERO MUÑIZ ?Visit Date: 12/05/2016 09:42 am PERFORMED BY: Performed By: ? Jenniffer Cheng RDMS Attending: ?Ana NASCIMENTO, Angelica Freeman Referred By: ?DARLENE BRAGA CNM Location: ? [place] SERVICE(S) PROVIDED: ??[facility] - Detailed Morphology - [id number] ? [id number] INDICATIONS: ??19 weeks gestation of ?Z3A.19 ??Positive [...] ?19w 5d ?? Det. By: ??LMP ??(07/20/16) ?LIAS: ?? 04/26/17 TARGETED ANATOMY: Central Nervous System [...] Arch: ? Visualized SVC: ? Visualized Cardiac [place]: ?Visualized Diaphragm: ? Visualized 3 Vessel View: [...] 12/05/2016 11:14 am) PATIENT INFO: ID #: [id number] : [birth year] (26 yrs)(F) Name: HERO MUÑIZ Visit Date: 12/05/2016 09:42 am PERFORMED BY: Performed By: Jenniffer Cheng RDMS Attending: Angelica Perez MD Referred By: DARLENE BRAGA [facility] Location: [place] SERVICE(S) PROVIDED: [facility] - Detailed Morphology - [id number] INDICATIONS: 19 weeks gestation of Z3A.19 Positive [...] Visualized Ductal Arch: Visualized SVC: Visualized Cardiac [place]: Visualized Diaphragm: Visualized 3 Vessel View: Visualized [...] 12/05/2016 11:14 am Stacie Burnham MD IMG US OB ORDERABL ES documented in this encounter Visit Diagnoses Diagnosis Abnormal findings on screening Abnormal findings on screening documented in this encounter Care Teams Varnish Maker Helper Relationship Specialty Start Date End Date None None PCP - General 10/17/16 documented as of this encounter
--- OUTSIDE RECORDS SUMMARY | 2023-11-05 20:05 | XMS_ITS | Encounter Summary ---
[facility] Organization [facility] [place] [address] Care Team Providers Care Software Development Coordinator Name Role Phone None Primary Care Provider Unavailabl e Reason for Visit * Reason Comments Positive Screen For Down Syndrome * Consultation (Routine) - Closed Specialty Diagnoses / Procedures Referred By Katey troy Referred To Contact Obstetrics and Gynecology Diagnoses pos quad for DS Procedures full slot Geovanni Dubois CNM [address] [place] [address] [facility] Integrity Director [address] [place] [address] Referral ID Status Reason Start Date Expiration Date Visits Re quested Visits Authorized [id number] Closed 11/27/2016 11/27/2017 2 2 Encounter Details Date Type Department Care Team (Late st Contact Info) Description 12/05/2016 8:45 AM EDT Office Visit Obstetrics [place] [address] Natividad Hanley [facility]ST[facility] [place] [address] Abnormal findings on screening of mother; Encounter for genetic counseling Social History Tobacco Use Types Packs/Day Years [...] as of this encounter Progress Notes * Natividad Hanley MS - 12/05/2016 8:45 AM EDT Genetic Counseling Note Trinity Muñiz is a 26 y.o. female currently at 19w5d gestation. She was referred to thePrenatal Diagnosis Program by Geovanni Dubois CNM, due to aquad screening positive for Down sydnrome. I met with Trinity for a 25 minute genetic counseling visit. She was accompanied to the visit byher partner Salvador Morse. Lety trevino cytogenetic tech sat in today. History Medical, family, and obstetric histories were reviewed and updated as appropriate. A limited pedigree was obtained and will be scanned into eD-H. Assessment Prior to today's ultrasound,we discussed the implications of abnormal aneuploidy screening putting this at increased risk to have a baby with Down syndrome. Her risk was determined to be 1/220. We reviewed the different options available to this couple such as ultrasound, cell free DNA screening, and amniocentesis; each of their risks, benefits, and limitations. Couple declined amniocentesis and opted to pursue cell free DNA screening. Trinity shared that she did not have this screening in the last but chose to in this one. Her reasoning was that they now had their son to consdier and prepare if this baby has Down syndrome. They would not consider termination. Plan Following our visit, Trinity Muñiz had a morphology ultrasound and maternal- medicine consultation with Dr. Angelica Perez. Please refer to her note for further details and recommendations.Non- invasive testing was performed today. We will contact this couple with these resultswhen they become available in about 7-10 days. documented in this encounter Plan of Treatment Not on file documented as of this encounter Results * Miscellaneous Lab request (12/05/2016 11:36 AM EDT) Label Request received in lab. [facility] Blood specimen (specimen) 12/05/2016 11:36 AM EDT 12/05/2016 1:32 PM EDT Narrative Resulting Agency Comment Spec In Lab Angelica Perez MD LAB SEND OUT ORDERAB LES Performing Organization Address City/State/[facility] Co de Phone Number [facility] [place] [place] [address] documented in this encounter Visit Diagnoses Diagnosis Abnormal findings on screening of mother Abnormal findings on screening Encounter for genetic counseling Genetic counseling documented in this encounter Care Teams Software Development Coordinator Relationship Specialty Start Date End Date None None PCP - General 10/17/16 documented as of this encounter
--- OUTSIDE RECORDS SUMMARY | 2023-11-05 20:05 | XMS_ITS | Encounter Summary ---
Author Organization [facility] Address [address] [place] [address] Care Team Providers Care Media Job Titles Name Role Phone Kumar Smith MD Primary Care Provider [phone] Encounter Details Date Type Department Care Team (Late st Contact Info) Description 07/18/2017 Results Only [facility] [phone] Oly Escobar MD [address] [place] [address] [address] [place] [address] Social History Tobacco Use Types Packs/Day Years Used Date Smoking Tobacco: Never Assessed Sex and Gender Information Value Date Recorded Sex Assigned at Not on file Gender Identity Female 10/27/2023 20:13 EDT Sexual Orientation Not on file documented as of this encounter Plan of Treatment Not on file documented as of this encounter Procedures Procedure Name Priority Date/Time Associated Diagnosis Comments SURGICAL PATHOLOGY Routine 07/18/2017 15 :45 EDT documented in this encounter Results * SURGICAL PATHOLOGY (07/18/2017 15:45 EDT) Pathology Report: SURGICAL PATHOLOGY REPORT Reports generated via electronic interface contain original data; however they are lacking the format of the original report. Caution should be taken when reading/interpret ing unformatted reports. Name: ? HERO MORSE Talha ? Accession #: ? [id number] ? : ? 1990 (Age: 26) ??F ? Collect Date: ? 07/18/2017 ? Location: ? [facility] ? Receive Date: ? 07/18/2017 ? Provider: OLY ESCOBAR MD Copy to: [employer] PRECISION FILER HAND ? Final Pathologic Diagnosis: A. FALLOPIAN TUBE, RIGHT, SALPINGECTOMY: - Unremarkable fallopian tube. - Full cross-section visualized. B.FALLOPIAN TUBE, LEFT, SALPINGECTOMY: - Unremarkable fallopian tube. - Full cross section visualized. Document reviewed and electronically signed by: EMMANUELLE DASILVA MD Report ??Date: 07/20/2017 12:44 By the signature above, the attending physician certifies that he/she has personally conducted a gross and/or microscopic examination of the described specimens and rendered or confirmed the above diagnosis. Specimen(s) Received: A. ??R tube (#1) B. ??L tube (#2) Clinical History: Multiparity, desired sterilization Gross Description: A. ?Received in formalin labelled with proper patient identification (initials F, C) and 1. R tube is a fimbriated fallopian tube (3.5 cm in length x 0.5 cm in diameter). The serosa is smooth, mccoy-purple and glistening. Sectioning reveals a pinpoint stellate lumen. No lesions are identified. The entire fimbria are submitted in A1 and a sales representative cross section is submitted in A2. B. ?Received in formalin labelled with proper patient identification (initials F, C) and 2. L tube is a fimbriated fallopian tube (4.0 cm in length x 0.5 cm in diameter). The serosa is smooth, mccoy-purple and glistening. A clear fluid-filled paratubal cyst (0.4 cm in greatest dimension) is identified. Sectioning of the fallopian tube reveals a pinpoint stellate lumen. The entire fimbria are submitted in B1 and a sales representative cross section including the paratubal cyst are submitted in B2. ARIELA Gilman (ASCP) 07/19/2017 2:38 PM End of Report [facility] 07/18/2017 15:4 5 EDT 07/18/2017 15:45 EDT Oly Escobar MD PATHOLOGY ORDERABLES [facility] [address] [place] [address] documented in this encounter Visit Diagnoses Not on filedocumented in this encounter Care Teams Media Job Titles Relationship Specialty Start Date End Date Kumar Smith MD [address] [place] [address] PCP - General 07/17/08 07/19/17 documented as of this encounter
--- OUTSIDE RECORDS SUMMARY | 2023-11-05 20:05 | XMS_ITS | Encounter Summary ---
[place] [address] Care Team Providers Care Animal Shelter Clerk Name Role Phone Kumar Smith MD Primary Care Provider [phone] Reason for Visit * Reason Comments Family History Rkvxwts-Prgnh-Edfmv neuropathy Encounter Details Date Type Department Care Team (Late st Contact Info) Description 12/14/2010 10:30 AM EDT Office Visit [address] [address] [address] [place], [facility]ST[facility] [place] [address] Family history of neuropathy (Primary Dx); Genetic counseling Social History Tobacco Use Types Packs/Day [...] as of this encounter Progress Notes * Carroll Irby, [place] - 12/14/2010 11:30 AM EDT Trinity Muñiz was referred to the Diagnosis Program by Britt Vega CNM due to a family history of Kvydjjb-Spgya-Iskkn (CMT) hereditary neuropathy. I met with Trinity for a 60 minutegenetic counseling visit prior to her ultrasound and maternal- medicine consultation. She was accompanied to the visit by her partner, Salvador Morse, and her father, Nikunj Muñiz. history Trinity is a 20 y.o. female currently at 17w6d by ultrasound dating (LISA 05/18/2011). Family history Nikunj (age 39) was diagnosed with CMT at age 38. He provided medical records of his laboratory testing looking for causes of acquired peripheral neuropathy (vitamin B12 deficiency, thyroid disease, diabetes mellitus, etc.) and of his sural nerve biopsy. Nikunj's mother is 64 years old and has a diagnosis of rheumatoid arthritis. She has not been formally evaluated for CMT, but Nikunj and Trinity report that she has symptoms that could be consistent with the diagnosis. One of Nikunj's maternal aunts and her son were diagnosed with CMT in their forties. His maternal uncle was diagnosed with CMT in his fifties. His late maternal grandmother also had CMT. Neither Nikunj nor any of his relatives have had genetic testing for CMT due to the high cost of this testing and lack of/limited insurance coverage. The remainder of the family history was unremarkable for any individuals with mental retardation, defects, recurrent loss, or known genetic conditions. Assessment Family history of CMT hereditary neuropathy Discussion Trinity's father and several other family members have a clinical diagnosis of CMT hereditary neuropathy. Since the diagnosis has not been confirmed by molecular genetic testing, our discussion wasbased on the assumption that this diagnosis is correct. CMT can be inherited in an autosomal dominant, autosomal recessive, or X-linked manner. In this family, autosomal dominant inheritance is most likely, but X- linked inheritance can not be ruled out because there is no known mekw-my-solb transmission of neuropathy. If Trinity's father has autosomaldominant CMT, then the chance that she inherited the disease-causing gene is 50%. If her father hasX-linked CMT, then the chance that she inherited the disease-causing gene is 100%. The age of onsetand severity can vary considerably, even within families. In one study of women with CMT, worsening of symptoms during or after gestation was reported in about half the pregnancies. Trinity expressed concern about potentially being exposed to medications during or delivery that could expedite the development of symptoms should she have the disease-causing gene. I will ask Dr. Peña to address this further. Plan Trinity is scheduled for a morphology ultrasound and maternal- medicine consultation following our visit today. documented in this encounter Plan of Treatment Not on file documented as of this encounter Visit Diagnoses Diagnosis Family history of neuropathy- Primary Family history of other neurological diseases Genetic counseling documented in this encounter Care Teams Animal Shelter Clerk Relationship Specialty Start Date End Date Kumar Smith MD PCP - General 02/08/10 10/16/16 documented as of this encounter
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
--- OUTSIDE RECORDS SUMMARY | 2023-11-05 20:05 | XMS_ITS | Encounter Summary ---
[place] [address] Care Team Providers Care Civil Engineering Project Manager Name Role Phone None Primary Care Provider Unavailabl e Encounter Details Date Type Department Care Team (Late st Contact Info) Description 04/17/2022 Telephone Psychiatry [place] [id number] Gabrielle Tran Social History Tobacco Use Types Packs/Day Years [...] on filedocumented in this encounter Care Teams Civil Engineering Project Manager Relationship Specialty Start Date End Date None None PCP - General 10/17/16 documented as of this encounter
--- OUTSIDE RECORDS SUMMARY | 2023-11-05 20:05 | XMS_ITS | Encounter Summary ---
Author Organization [facility] Address [address] [place] [address] Care Team Providers Care Route Deliverer Name Role Phone FuentesAbbey PAOLA Primary Care Provider [phone] Yariel Ferreira RPA Primary Care Provider [phone] Encounter Details Date Type Department Care Team (Late st Contact Info) Description 08/13/2019 Lab Requisition [facility] Pathology & Laboratory Medicine - [address] [id number] Outr Resulting Lab, Provider Social History Tobacco Use Types Packs/Day Years Used Date Smoking Tobacco: Never Assessed Sex and Gender Information Value Date Recorded Sex Assigned at Not on file Gender Identity Female 10/27/2023 20:13 EDT Sexual Orientation Not on file documented as of this encounter Plan of Treatment Not on file documented as of this encounter Procedures Procedure Name Priority Date/Time Associated Diagnosis Comments DO NOT ORDER STANDALONE - BROAD COVID TEST Today 08/13/2019 13:26 EDT COVID-19 TESTING Routine 08/13/2019 13:2 6 EDT documented in this encounter Results * DO NOT ORDER STANDALONE - BROAD COVID TEST (08/13/2019 13:26 EDT) COVID-19 rt-PCR Result NEGATIVE Negative 08/15/2019 1:00 EDT [facility] Comment: 2019-novel Coronavirus (2019-nCoV) not detected by the qRT-PCR assay. Consider testing for other respiratory viruses or re-collecting for 2019-nCoV testing. Note: Optimum timing for peak viral levels during infections caused by 2019-nCoV have not been determined. Collection of multiple specimens from the same patient may be necessary to detect the virus. Limitations Positive results are indicative of active infection with SARS-CoV-2 but do not rule out bacterial infection or co-infection with other viruses. The agent detected may not be the definite cause of disease. In addition, detection of viral RNA may not indicate the presence of infectious virus or that SARS-CoV-2 is the causative agent for clinical symptoms. Negative results do not preclude SARS-CoV-2 infection and should not be used as the sole basis for patient management decisions. Negative results must be combined with clinical observations, patient history, and epidemiological information. False negative results may also occur if amplification inhibitors are present in the specimen or if inadequate numbers of organisms are present in the specimen. Optimum specimen types and timing for peak viral levels during infections caused by SARS-CoV-2 have not been fully determined. Collection of multiple specimens (types and time points) from the same patient may be necessary to detect the virus. The test was validated for use with upper respiratory specimens obtained via nasopharyngeal or oropharyngeal swabs in VTM, UTM, M4, M5, M6, saline, and MTM media. The performance of this test has not been established for other specimens. Specimens collected using other FDA recommended Specimen Collection Materials listed in the FDA COVID-19 Diagnostic [employer] communication (June 12, 2019) are processed with the caveat that they were not all validated for use with this test and the result must be interpreted in this context. Furthermore, a false negative results may occur if a specimen is improperly collected, transported or handled. If the virus mutates in the RT-PCR target region, SARS-CoV-2 may not be detected or may be detected less predictably. Inhibitors or other types of interference may produce a false negative result. An interference study evaluating the effect of common cold medications was not performed. This test is not FDA-cleared but its performance characteristics were established by our CLIA-certified, CAP-accredited, high complexity laboratory in accordance with CLIA regulations, College [employer] (CAP) guidelines (Jun 05, 2019), and FDA guidance (May 17, 2019). This test is only for use under the Food and Drug Administration's Emergency Use Authorization. Swab ENTIRE NASOPHARYNX / Unknown 08/13/2019 13:26 EDT 08/13/2019 21:15 EDT Provider Outr Resulting Lab MICROBIOLOGY - GENERAL ORDERABLES [facility] [place], [place] * COVID-19 TESTING (08/13/2019 13:26 EDT) COVID-19 rt-PCR Result NEGATIVE Negative 08/15/2019 7:24 EDT [facility] Comment: 2019-novel Coronavirus (2019-nCoV) not detected by the qRT-PCR assay. Consider testing for other respiratory viruses or re-collecting for 2019-nCoV testing. Note: Optimum timing for peak viral levels during infections caused by 2019-nCoV have not been determined. Collection of multiple specimens from the same patient may be necessary to detect the virus. Limitations Positive results are indicative of active infection with SARS-CoV-2 but do not rule out bacterial infection or co-infection with other viruses. The agent detected may not be the definite cause of disease. In addition, detection of viral RNA may not indicate the presence of infectious virus or that SARS-CoV-2 is the causative agent for clinical symptoms. Negative results do not preclude SARS-CoV-2 infection and should not be used as the sole basis for patient management decisions. Negative results must be combined with clinical observations, patient history, and epidemiological information. False negative results may also occur if amplification inhibitors are present in the specimen or if inadequate numbers of organisms are present in the specimen. Optimum specimen types and timing for peak viral levels during infections caused by SARS-CoV-2 have not been fully determined. Collection of multiple specimens (types and time points) from the same patient may be necessary to detect the virus. The test was validated for use with upper respiratory specimens obtained via nasopharyngeal or oropharyngeal swabs in VTM, UTM, M4, M5, M6, saline, and MTM media. The performance of this test has not been established for other specimens. Specimens collected using other FDA recommended Specimen Collection Materials listed in the FDA COVID-19 [employer] communication (June 12, 2019) are processed with the caveat that they were not all validated for use with this test and the result must be interpreted in this context. Furthermore, a false negative results may occur if a specimen is improperly collected, transported or handled. If the virus mutates in the RT-PCR target region, SARS-CoV-2 may not be detected or may be detected less predictably. Inhibitors or other types of interference may produce a false negative result. An interference study evaluating the effect of common cold medications was not performed. This test is not FDA-cleared but its performance characteristics were established by our CLIA-certified, CAP-accredited, high complexity laboratory in accordance with CLIA regulations, College of [place] [employer] (CAP) guidelines (Jun 05, 2019), and FDA guidance (May 17, 2019). This test is only for use under the Food and Drug Administration's Emergency Use Authorization. Performing Lab [facility] 08/15/2019 7:24 EDT [facility] Swab ENTIRE NASOPHARYNX / Unknown 08/13/2019 13:26 EDT 08/13/2019 21:15 EDT Provider Outr Resulting Lab MICROBIOLOGY - GENERAL ORDERABLES [facility] [address] [place] [address] [facility] [place], [place] documented in this encounter Visit Diagnoses Not on filedocumented in this encounter Care Teams Route Deliverer Relationship Specialty Start Date End Date Abbey Fuentes APRN [address] [facility] [address] [place] [address] PCP - General 07/20/17 10/26/23 Yariel Ferreira RPA [address] [facility] [address] [place] [address] PCP - General Family Medicine - Primary Care 10/27/23 documented as of this encounter
--- OUTSIDE RECORDS SUMMARY | 2023-11-05 20:05 | XMS_ITS | Encounter Summary ---
[place] [address] Care Team Providers Care Gill Tender Name Role Phone None Primary Care Provider Unavailabl e Reason for Referral * Consultation (Urgent) - Closed Specialty Diagnoses / Procedures Referred By Contjesse t Referred To Contact Diagnoses Odontogenic infection of jaw Dipika Noel MD [facility] [place] [address] Referral ID Status Reason Start Date Expiration Date V isits Requested Visits Authorized [id number] Closed Consult, Test & Treat 05/30/2022 11/26/2022 1 1 Encounter Details Date Type Department Care Team (Late st Contact Info) Description 05/30/2022 Notes Only [place] [address] Dipika Noel MD [facility] [place] [address] Social History Tobacco Use Types Packs/Day Years [...] as of this encounter Progress Notes * Dipika Noel MD - 05/30/2022 8:10 PM EDT Called by Transfer Center by [facility] Dr. Scott on 05/30 regarding Trinity Morse. Trinity Morse is a 31 y.o. female who presented with worsening right tooth pain. No fevers or chills or drainage. No dysphonia, dysphagia, odynophagia, limited submandibular swelling. No shortness of breath. No difficulty laying flat for the scan. No elevated WBC. She has been on amoxicillin for [address] scan showed limited soft tissue inflammation and bilateral dental caries along the lower molars.There is evidence of possible periapical abscess and periapical cysts(small) along the right lower molars vs possible osteomyelitis. She has never had radiation, no prior medical history or immunocompromised state. Impression Odontogenic infection Recommendations/Plan - Discussed differential diagnosis - Recommend changing antibiotic from amoxicillin to either augmentin or clindamycin - Needs dental follow-up CHLOÉ for further evaluation, I will place a referral to [facility] at [facility],however I discussed that the wait time can be very long for appointments at times, I recommended the patient start calling local dentists and endodontists in her area for a follow-up appointment and dental evaluation CHLOÉ. This is very important and it often takes reaching out to many offices. 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
--- OUTSIDE RECORDS SUMMARY | 2023-11-05 20:05 | XMS_ITS | Encounter Summary ---
Author Organization [facility] Address [address] [place] [address] Care Team Providers Care Crook Operator Name Role Phone Kumar Smith MD Primary Care Provider [phone] Encounter Details Date Type Department Care Team (Latest Contact Info) Description 07/18/2017 10:01 EDT - 07/18/2017 23:59 EDT Hospital Encounter [facility] [address] [place] [address] Unknown, Provider, Discharge Disposition: Home or Self Care Social History Tobacco Use Types Packs/Day Years Used Date Smoking Tobacco: Never Assessed Sex and Gender Information Value Date Recorded Sex Assigned at Not on file Gender Identity Female 10/27/2023 20:13 EDT Sexual Orientation Not on file documented as of this encounter Discharge Disposition Disposition Code Departure Means Destination Home or Self [facility] documented in this encounter Plan of Treatment Not on file documented as of this encounter Visit Diagnoses Not on filedocumented in this encounter Care Teams Crook Operator Relationship Specialty Start Date End Date Kumar Smith MD [address] [place] [address] PCP - General 07/17/08 07/19/17 documented as of this encounter
--- OUTSIDE RECORDS SUMMARY | 2023-11-05 20:05 | XMS_ITS | Encounter Summary ---
Author Organization [facility] Address [address] [place] [address] Care Team Providers Care Instructional Media Services Technician Name Role Phone Alfredo Windsor PAOLA Primary Care Provider [phone] Yariel Ferreira RPA Primary Care Provider [phone] Encounter Details Date Type Department Care Team (Latest Contact Info) Description 08/24/2021 Lab Requisition [facility] Pathology & Laboratory Medicine - [facility] [address] [place] [address] Yariel Ferreira, SHRUTHI [address] [place] [id number] Encounter for general adult medical examination without abnormal findings; Encounter for screening for malignant neoplasm of cervix; Encounter for screening for human papillomavirus (HPV) Social History Tobacco Use Types Packs/Day Years [...] Name Priority Date/Time Associated Diagnosis Comments PAP TEST Today 08/23/2021 9:30 EDT Encounter for general adult medical examination without abnormal findings Encounter for screening for malignant neoplasm of cervix Encounter for screening for human papillomavirus (HPV) HPV DNA DETECTION WITH GENOTYPING, PCR Today 08/23/2021 9:30 EDT Encounter for general adult medical examination without abnormal findings Encounter for screening for malignant neoplasm of cervix Encounter for screening for human papillomavirus (HPV) documented in this encounter Results * HUMAN PAPILLOMAVIRUS (HPV) DETECTION-HIGH RISK TYPES (08/23/2021 9:30 EDT) HPV other High Risk types, PCR Negative Negative 08/31/2021 14:57 EDT [facility] Comment:No E6 or E7 mRNA is detected from HPV types 16,18,31,33,35,39,45,51,52,56,58,59,66, and 68 by kosher butcher mediated amplification. Papanicolaou smear specimen (specimen) CERVIX UTERI STRUCTURE / Unknown 08/23/2021 9:30 EDT 08/30/2021 14:41 EDT Yariel Ferreira [facility]CRO[facility] - [facility] ORDERABLES [facility] [address] [place] [address] * PAP TEST (08/23/2021 9:30 EDT) Specimens A. Cervix and/or Endocervix , ThinPrep Imaging System with Manual Evaluation 08/31/2021 14:57 T [facility] Specimen Adequacy Satisfactory for Evaluation - transformation zone component present 08/31/2021 14:57 T [facility] General Categorization Negative for intraepithelial lesion or malignancy 08/31/2021 14:57 T [facility] Attestation . 08/31/2021 14:57 [facility] at 1457 Clinical History See below 09/01/19 14:57 T [facility] HPV The result for the Human Papillomavirus (HPV) Detection-High Risk Types is Negative. No E6 or E7 mRNA is detected from HPV types 16,18,31,33,35,39 ,45,51,52,56,58,5 9,66, and 68 by kosher butcher mediated amplification.Siri ting was performed on specimen [id number] and was resulted on 08/31/2021 1430 EDT by [facility], LAB INSTRUMENT RESULTS IN 08/31/2021 14:57 EDT [facility] Performing Lab [facility] 08/31/2021 14:57 EDT [facility] Scanned Images 08/31/2021 14:57 EDT [facility] Papanicolaou smear specimen (specimen) CERVIX UTERI STRUCTURE / Unknown 08/23/2021 9:30 EDT 08/24/2021 9:39 EDT Yariel Ferreira RPA PATHOLOGY ORDERAB LES [facility] [address] [place] [address] documented in this encounter Visit Diagnoses Diagnosis Encounter for general adult medical examination without abnormal findings Unspecified general medical examination Encounter for screening for malignant neoplasm of cervix Screening for malignant neoplasm of the cervix Encounter for screening for human papillomavirus (HPV) Special screening examination for human papillomavirus (HPV) documented in this encounter Care Teams Instructional Media Services Technician Relationship Specialty Start Date End Date Abbey Fuentes APRN [address] [facility] [address] [place] [address] PCP - General 07/20/17 10/26/23 Yariel Ferreira RPA [address] [facility] [address] [place] [address] PCP - General Family Medicine - Primary Care 10/27/23 documented as of this encounter
--- OUTSIDE RECORDS SUMMARY | 2023-11-05 20:05 | XMS_ITS | Encounter Summary ---
[place] [address] Care Team Providers Care Records And Information Manager Name Role Phone Kumar Smith MD Primary Care Provider [phone] Encounter Details Date Type Department Care Team (Late st Contact Info) Description 01/12/2011 8:57 AM EDT - 01/12/2011 11:59 PM EDT Hospital Encounter Non[place] [address] CARDIO, ECHO SIXTY MIN APPT None Shanice Parker MD [address] [place] [address] [place] [address] ; Obesity complicating ; Gestational diabetes; state, incidental; Obesity-antepartum; Abn glucose in preg-unsp; ERRONEOUS ENCOUNTER--DISREGARD Discharge Disposition: Home Social History Tobacco Use [...] Take 100 mcg by mouth daily. 10/17/2016 Wdzmhysv-Sg-Qbe-Fe-FA ( VITAMIN) Tab Take by mouth. 03/2016 levothyroxine (SYNTHROID) 88 mcg tablet 88 mcg, PO, Once daily 06/14/2007 10/17/2016 drospirenone-ethinyl estradiol (RAMON 28) 3-20 mg-mcg per tablet 06/14/2007 10/17/2016 oxybutynin (DITROPAN XL) 15 mg 24 hr tablet 15 MG = 1 Tablet(s), PO, Once daily 06/14/2007 10/17/2016 documented as of this encounter Progress Notes * Shanice Parker MD - 01/12/2011 12:32 PM EDT This encounter was created in error - please disregard. documented in this encounter Plan of Treatment Not on file documented as of this encounter Procedures Procedure Name Priority Date/Time Associated Diagnosis Comments ECHOCARDIOGRAM Routine 01/12/2011 12:13 PM EDT Obesity complicating Gestational diabetes documented in this encounter Results * Echocardiogram (01/12/2011 12:13 PM EDT) Anatomical Region Laterality Modality Other 01/12/2011 Narrative 01/12/2011 1:07 PM EDT Procedure: ? Pediatric Echocardiogram ? Patient: ? GALINDO Palencia ? (Age): 1990(20) Med Rec#: ?[id number] ?Sex: ?F ? Site Loc: ?[facility] ?Ht / Wt: ??(cm)/(kg) ? Pt. Loc: ? Pediatrics ?BSA: ? Study Date: ?01/12/2011 ?Pt. Type: Outpatient Study Quality: ? Tape: ? Referring: Gavino Peña Referring: Britt Vega Correspondence Coordinator: Chris Curtis Diagnosis:CPT Code(s): ?? Echo Full (63625), ?? Doppler Full (96149), ??Color Doppler (54705), Indication(s): ??Maternal diabetes Rhythm: SUMMARY: 1. A [...] 01/12/2011 13:06:44 Images reviewed and interpretation verified [facility] Cardiac Ultrasound Laboratory Procedure Note Shanice Parker MD - 01/12/2011 Procedure: Pediatric Echocardiogram Patient: GALINDO Palencia DOB(Age): 1990(20) Med Rec#: [id number] Sex: F Site Loc: [facility] Ht / Wt: (cm)/(kg) Pt. Loc: Pediatrics BSA: Study Date: 01/12/2011 Pt. Type: Outpatient Study Quality: Tape: Referring: Gavino Peña Referring: Britt Vega Correspondence Coordinator: Chris Curtis Diagnosis:CPT Code(s): Echo Full (72541), Doppler Full (97926), Color Doppler (47777), Indication(s): Maternal diabetes Rhythm: SUMMARY: 1. A [...] 01/12/2011 13:06:44 Images reviewed and interpretation verified [facility] Cardiac Ultrasound Laboratory E Soo Peña MD ECHO ORDERABLES documented in this encounter Visit Diagnoses Diagnosis state, incidental Obesity complicating Obesity complicating , childbirth, or the puerperium, unspecified as to episode of care or not applicable Gestational diabetes Abnormal maternal glucose tolerance, complicating , childbirth, or the puerperium, unspecified as to episode of care Obesity complicating , childbirth, or the puerperium, antepartum condition or complication(649.13) Obesity complicating , childbirth, or the puerperium, antepartum condition or complication Abnormal maternal glucose tolerance, complicating , childbirth, or the puerperium, unspecified as to episode of care ERRONEOUS ENCOUNTER--DISREGARD documented in this encounter Care Teams Records And Information Manager Relationship Specialty Start Date End Date Kumar Smith MD PCP - General 02/08/10 10/16/16 documented as of this encounter
--- OUTSIDE RECORDS SUMMARY | 2023-11-05 20:05 | XMS_ITS | Encounter Summary ---
Author Organization [facility] Address [address] [place] [address] Care Team Providers Care Malted Milk Masher Name Role Phone Yariel Ferreira [facility] Primary Care Provider [phone] Reason for Visit * Reason Comments Abdominal Pain Pt with 1.5 wks. Selene t to [facility] at that time, with negative workup. Pt continues to have pain, here for additional evaluation. A&O. Respirations unlabored. Skin warm & dry. NAD. Encounter Details Date Type Department Care Team (Late st Contact Info) Description 10/27/2023 19:41 EDT - 10/27/2023 22:49 EDT Emergency [facility] Emergency Department - [address] [place] [address] Kendall Dillard MD [address] [place] [id number] RUQ pain (Primary Dx) Discharge Disposition: Home or Self Care Social [...] ??F) 10/27/2023 2245 EDT Respiratory Rate 16 10/27/20232244 EDT Oxygen Saturation 98% 10/27/20232244 EDT Inhaled Oxygen Concentration - - Weight 102.1 kg (225 lb) 10/27/20231938 EDT Height 154.9 cm (5' 1) 10/27/20231938 EDT Body Mass Index 42.51 10/27/20231938 EDT documented in this encounter Discharge Instructions * Discharge Instructions* Massimo Medel PA-C - 10/27/2023 22:25 EDT Your ultrasound and labs are reassuring. Cause for your pain is not entirely clear. We recommend close follow up with your doctor. Return to the ER if fever, vomiting, or worsening pain IN the meantime take tylenol 650mg every 6 hours. Take omeprazole 1 tab daily to treat for possibleinflammation of your stomach (can buy over the counter). Ok to try robaxin for muscle relaxation, take as prescribed documented in this encounter Medications at Time of Discharge Medication Sig Dispensed Refills Start Date End Date methocarbamoL (ROBAXIN) 750 mg tablet Take 1 Tablet by mouth 3 times daily for 3 days. 9 Tablet 10/27/2023 10/30/2023 documented as of this encounter Ordered Prescriptions Prescription Sig Dispensed Refills Start Date End Da te methocarbamoL (ROBAXIN) 750 mg tablet Take 1 Tablet by mouth 3 times daily for 3 days. 9 Tablet 10/27/2023 10/30/2023 documented in this encounter Discharge Disposition Disposition Code Departure Means Destination Comment s Home or Self Detention documented in this encounter ED Notes * Anirudh Vanegas RN - 10/27/20231938 EDT Chief Complaint Patient presents with Abdominal Pain Pt with 1.5 wks. Went to [facility] at that time, with negative workup. Pt continues to have pain, here for additional evaluation. A&O. Respirations unlabored. Skin warm & dry. NAD. * Kendall Dillard MD - 10/27/2023 193 EDT Emergency Department Visit Medical Decision Making Patient with right upper quadrant pain today. Differential includes biliary colic versus gastritis.Patient was given a liter of fluids, Toradol and Pepcid. Labs and ultrasound ordered for further evaluation. Labs are reassuring today including normal LFTs and lipase. Right upper quadrant ultrasound shows no signs of cholecystitis or gallstones. Despite Toradol and Pepcid she continued to have a moderate amount of pain Case staffed with Dr Dillard. We agree further imaging is unlikely to be beneficial today. It is possible her pain is secondary to gastritis. I advised a daily PPI. She will take methocarbamol for possible muscle spasm. I urged close PCP follow-up. Return precautions were discussed. Relevant Data as of 10/29/232140 Sat Oct 27, 2023 1579 I reviewed this case with the Advanced Practice Provider. I personally made/approved the management plan for this patient and take responsibility for the patient management.I evaluated this patient [id number] and provided a substantive portion of the patient's care. My personal evaluation includeda history and physical exam, review of nursing notes, vital signs, relevant records and diagnostic data. Based on all of these elements I formulated, and/or participated substantively in the medical decision making, including assessing the level of risk of the patient's complaints and condition, establishing a diagnosis and/or selecting management options. Briefly to summarize, 32-year-old female with recent nonrevealing imaging at [facility] presenting for midepigastric discomfort for the last week. Right upper quadrant tenderness on exam. Reportedly normal CT scan at [facility]. Will perform right upper quadrant ultrasound today. No acute findings. Lipase negative. Could be gastritis and advised to start famotidine. Labs reassuring including negative UPT, normal lipase. Plan for outpatient follow-up, starting Pepcid. Remainder of evaluation is in the ED Course or detailed in the GORDO portion of the note. Kendall Dillard MD [DP] Relevant Data User Index [DP] Kendall Dillard MD Medical Decision Making Problems Addressed: RUQ pain: complicated acute illness or injury Amount and/or Complexity of Data Reviewed Labs: ordered. Radiology: ordered. Risk Prescription drug management. Final diagnoses: RUQ pain Disposition: Discharged Chief complaint: Abdominal pain HPI Trinity Morse is a 32 y.o. female with a history of fatty liver who comes in for right upper quadrant pain for the past week. Pain is constant. It is worse after eating. She has had nausea but novomiting. No fevers. She has had some diarrhea. Notes a history of tubal ligation. She does note some increased pain in her abdomen when she urinates but no dysuria. She has had similar pain she states in the past but never this severe. She states she went to [place] last week and had a negative CT scan. Patient's pertinent PMH, FH, SH were reviewed and edited as necessary. Nursing notes reviewed. A medical screening exam was performed. Physical Exam BP 138/86 Temp 36.7 ??C (98 ??F) (Oral) Resp 16 Ht 154.9 cm (61) Wt (!) 102.1 kg (225 lb) SpO2 98% BMI 42.51 kg/m?? Physical Exam BP 138/86 Temp 36.7 ??C (98 ??F) (Oral) Resp 16 Ht 154.9 cm (61) Wt (!) 102.1 kg (225 lb) SpO2 98% BMI 42.51 kg/m?? General appearance: alert, oriented, appears uncomfortable. HEENT: conjunctiva pink, sclera white. No icterus. Pupils round, equal, reactive. Neck: supple Abdomen soft, tender in RUQ. [place] positive. Procedures Procedures documented in this encounter Plan of Treatment Not on file documented as of this encounter Procedures Procedure Name Priority Date/Time Associated Diagnosis Comments US ABDOMEN LIMITED STAT 10/27/2023 21 :21 EDT POCT TEST, CLINITEK STAT 10/27/2023 20:55 EDT POCT URINE DIPSTICK, CLINITEK STAT 10/27/2023 20:55 EDT POCT CSN BARCODE URINE PREG TEST STAT 10/27/2023 20:51 EDT POCT TEST, CLINITEK ORDER STAT 10/27/2023 20:51 EDT POCT CSN BARCODE URINE DIPSTICK STAT 10/27/2023 20:51 EDT POCT URINE CLINITEK (DIPSTICK) - DOES NOT REFLEX STAT 10/27/2023 20:51 EDT COMPLETE BLOOD COUNT Routine 10/27/2023 20:51 EDT LIPASE STAT 10/27/2023 20:04 EDT COMPREHENSIVE METABOLIC PANEL (CMP) STAT 10/27/2023 20:04 EDT documented in this encounter Results * US ABDOMEN LIMITED (10/27/2023 21:21 EDT) Anatomical Region Laterality Modality Abdomen, Body Ultrasound 10/28/2023 8:23 EDT Impressions 10/28/2023 8:23 EDT 1. ??No cholelithiasis or sonographic evidence of acute cholecystitis. 2. ??Hepatomegaly with hepatic steatosis and/or fibrosis. I have personally reviewed the images and the above interpretation and agree with the findings. [id number] Narrative 10/28/2023 8:23 EDT US ABDOMEN LIMITED [...] Normal. OTHER FINDINGS: None. Resulting Agency Comment [id number] Procedure Note Jose Roberto Seo MD - [...] the above interpretation andagree with the findings. [id number] Massimo Medel PA-C IMG US ORDERAB LES * (ABNORMAL) POCT URINE DIPSTICK, CLINITEK (10/27/2023 20:55 EDT) Color, UA Yellow Yellow 10/27/2023 20:57 T [facility] Clarity, UA Clear Clear 10/27/2023 20:57 EDT [facility] Glucose, UA Negative Negative mg/dL 10/27/2023 20:57 EDT [facility] Bilirubin, UA Negative Negative 10/27/2023 20:57 T [facility] Ketones, UA Negative Negative 10/27/2023 20:57 [facility] Specific [place], Urine 1.020 1.001 - 1.030 10/27/2023 20:57 [facility] Blood, UA 1+(A) Negative 10/27/2023 20:57 [facility] pH, UA 6.5 <8.5 10/27/2023 20:57 EDT [facility] Protein, UA Negative Negative mg/dL 10/27/2023 20:57 EDT [facility] Urobilinogen, UA 1.0 0.2 - 1.0 mg/dL 10/27/2023 20:57 EDT [facility] Nitrite, UA Negative Negative 10/27/2023 20:57 EDT [facility] Leuk Esterase Negative Negative 10/27/2023 20:57 EDT [facility] HN LAB COMMENT (CLINITEK, UR) Test performed at Emergency Department 10/27/2023 20:57 EDT [facility] Urine URINE SPECIMEN OBTAINED BY CLEAN CATCH PROCEDURE / Unknown 10/27/2023 20:55 EDT 10/27/2023 20:57 EDT Massimo Medel PA-C POINT OF CARE TEST ORDERABLES Performing Organization Address [facility] de Phone Number [facility] [address] [place] [address] * POCT TEST, CLINITEK (10/27/2023 20:55 EDT) UPT Result Negative Negative 10/27/2023 21:01 EDT [facility] HN LAB COMMENT (CLINITEK, UPT) Test performed at Emergency Department 10/27/2023 21:01 EDT [facility] Comment:False negative resul ts may occur in women who are beyond 5-8 weeks gestation. Diagnosis of should be based on a correlation of test results with typical clinical signs and symptoms. Urine URINE SPECIMEN OBTAINED BY CLEAN CATCH PROCEDURE / Unknown 10/27/2023 20:55 EDT 10/27/2023 21:01 EDT Massimo Medel PA-C POINT OF CARE TEST ORDERABLES Performing Organization Address [facility] Co de Phone Number [facility] [address] [place] [address] * POCT CSN BARCODE URINE DIPSTICK (10/27/2023 20:51 EDT) Urine URINE SPECIMEN OBTAINED BY CLEAN CATCH PROCEDURE / Unknown Urine Collect / Unknown 10/27/2023 20:51 EDT 10/27/2023 20:51 EDT Massimo Medel PA-C LAB INFO SERVI CE AND SUPPORT & PHONE RESULT Performing Organization Address [facility] Co de Phone Number [facility] [address] [place] [phone] * POCT CSN BARCODE URINE PREG TEST (10/27/2023 20:51 EDT) Urine URINE SPECIMEN OBTAINED BY CLEAN CATCH PROCEDURE / Unknown Urine Collect / Unknown 10/27/2023 20:51 EDT 10/27/2023 20:51 EDT Massimo Medel PA-C LAB INFO SERVI CE AND SUPPORT & PHONE RESULT Performing Organization Address [facility] de Phone Number [facility] [address] [place] [phone] * (ABNORMAL) COMPLETE BLOOD COUNT (10/27/2023 20:51 EDT) WBC 9.88 4.00 - 12.40 K/cmm 10/27/2023 21:04 [facility] RBC 3.53(L) 3.86 - 5.04 M/cmm 10/27/2023 21:04 [facility] Hemoglobin 10.4(L) 11.6 - 15.2 g/dL 10/27/2023 21:04 [facility] HCT 31.1(L) 34.9 - 44.4 % 10/27/2023 21:04 [facility] MCV 88 81 - 98 fL 10/27/2023 21:04 [facility] MCH 29.5 26.7 - 33.3 pg 10/27/2023 21:04 [facility] MCHC 33.4 32.1 - 35.9 g/dL 10/27/2023 21:04 EDT [facility] RDW-CV 15.4(H) <14.7 % 10/27/2023 21:04 EDT [facility] RDW-SD 49.6 <50.4 fl 10/27/2023 21:04 EDT [facility] PLT 327 141 - 377 K/cmm 10/27/2023 21:04 EDT [facility] MPV 9.3(L) 9.5 - 12.7 fL 10/27/2023 21:04 EDT [facility] Blood VENOUS BLOOD / Unknown Venipuncture / Unknown 10/27/2023 20:51 EDT 10/27/2023 20:54 EDT David Marie MD HEMATOLOGY & PF4 ORDERABLES Performing Organization Address [facility] Co de Phone Number [facility] [address] [place] [address] * LIPASE (10/27/2023 20:04 EDT) Lipase 55 <251 U/L 10/27/2023 20:24 EDT [facility] Blood VENOUS BLOOD / Unknown Venipuncture / Unknown 10/27/2023 20:04 EDT 10/27/2023 20:07 EDT David Marie MD CHEMISTRY & BLOOD GAS ORDERABLES Performing Organization Address City/[facility]/ZIP Co de Phone Number [facility] [address] [place] [address] * COMPREHENSIVE METABOLIC PANEL (CMP) (10/27/2023 20:04 EDT) Sodium 139 136 - 145 mmol/L 10/27/2023 20:27 EDT [facility] Potassium 4.2 3.5 - 5.0 mmol/L 10/27/2023 20:27 EDT [facility] Comment:Slight hemolysis emili ntified, interpret with caution as hemolysis will elevate potassium result. Chloride 103 96 - 110 mmol/L 10/27/2023 20:27 [facility] CO2 Total 28 22 - 32 mmol/L 10/27/2023 20:27 [facility] Glucose 96 70 - 99 mg/dl 10/27/2023 20:27 [facility] BUN 12 10 - 26 mg/dL 10/27/2023 20:27 [facility] Comment: Slight hemolysis identified, interpret with caution as results may be affected due to hemolysis. Creatinine 0.78 0.52 - 1.04 mg/dL 10/27/2023 20:27 [facility] eGFR 103 >60 mL/min/1.7 3m2 10/27/2023 20:27 [facility] Total Protein 7.6 6.3 - 8.2 g/dL 10/27/2023 20:27 [facility] Comment:Slight hemolysis emili ntified, interpret with caution as results may be affected due to hemolysis. Albumin 4.6 3.4 - 4.9 g/dL 10/27/2023 20:27 [facility] Comment:Slight hemolysis emili ntified, interpret with caution as results may be affected due to hemolysis. Alkaline Phosphatase 41 38 - 126 U/L 10/27/2023 20:27 [facility] Comment:Slight hemolysis emili ntified, hemolysis will decrease ALKP result. Interpret with caution as results may be affected due to hemolysis. AST 32 15 - 46 U/L 10/27/2023 20:27 [facility] Comment:Slight hemolysis emili ntified, interpret with caution as results may be affected due to hemolysis. ALT 19 <35 U/L 10/27/2023 20:27 [facility] Bilirubin, Total 0.6 <1.4 mg/dL 10/27/19 20:27 [facility] Calcium 9.2 8.5 - 10.5 mg/dL 10/27/2023 20:27 [facility] Albumin/Globulin Ratio 1.5 1.0 - 2.5 10/27/2023 20:27 [facility] Anion Gap 8 5 - 14 mmol/L 10/27/2023 20:27 EDT [facility] Blood VENOUS BLOOD / Unknown Venipuncture / Unknown 10/27/2023 20:04 EDT 10/27/2023 20:07 EDT David Marie MD CHEMISTRY & BLOOD GAS ORDERABLES [facility] [address] [place] [address] documented in this encounter Visit Diagnoses Diagnosis RUQ pain- Primary Abdominal pain, right upper quadrant documented in this encounter Administered Medications Inactive Administered Medications - up to 3 most recent administrations Medication Order MAR Action Action Date Dose Rate Site famotidine (PEPCID) injection 20 mg 20 mg, intravenous, NOW X1, 1 dose, On 10/27/23 at 2014, STAT Given 10/27/2023 20:50 EDT 20 mg ketOROLAC (TORADOL) injection 15 mg 15 mg, intravenous, NOW X1, 1 dose, On 10/27/23 at 2014, STAT Given 10/27/2023 20:50 EDT 15 mg lactated ringers BOLUS 1,000 mL 1,000 mL, intravenous, NOW X1, 1 dose, On 10/27/23 at 2014, STAT New Bag 10/27/2023 20:50 EDT 1,000 mL methocarbamoL (ROBAXIN) tablet 750 mg 750 mg, oral, NOW X1, 1 dose, On 10/27/23 at 2230, STAT Given 10/27/2023 22:41 EDT 750 mg documented in this encounter Active and Recently Administered Medications Times are shown in EDT. Scheduled Medication Order 10/25/2023 10/26/2023 10/27/2023 famotidine (PEPCID) injection 20 mg (COMPLETED) 20 mg, intravenous, NOW X1, 1 dose, On 10/27/23 at 2014, STAT 2049 (Given - Provid er: Basilia Martinez RN) ketOROLAC (TORADOL) injection 15 mg (COMPLETED) 15 mg, intravenous, NOW X1, 1 dose, On 10/27/23 at 2014, STAT 2049 (Given - Provid er: Basilia Martinez RN) lactated ringers BOLUS 1,000 mL (COMPLETED) 1,000 mL, intravenous, NOW X1, 1 dose, On 10/27/23 at 2015, STAT 2050 (New Bag - Prov ider: Basilia Martinez RN)2237 (IV Stopped - Provider: Basilia Martinez RN) methocarbamoL (ROBAXIN) tablet 750 mg (COMPLETED) 750 mg, oral, NOW X1, 1 dose, On 10/27/23 at 2230, STAT 2241 (Given - Provid er: Basilia Martinez RN) documented in this encounter Care Teams Malted Milk Masher Relationship Specialty Start Date End Date Yariel Ferreira RPA [address] [place] [id number] PCP - General Family Medicine - Primary Care 10/27/23 documented as of this encounter
--- OUTSIDE RECORDS SUMMARY | 2023-11-05 20:05 | XMS_ITS | Encounter Summary ---
Author Organization [facility] Address [facility] [place] [place] [address] Care Team Providers Care Division Field Inspector Name Role Phone None Primary Care Provider Unavailabl e Reason for Visit * Reason Comments Ultrasound * Consultation (Routine) - Closed Specialty Diagnoses / Procedures Referred By Katey t Referred To Contact Obstetrics and Gynecology Diagnoses pos quad for DS Procedures full slot Geovanni Dubois CNM [address] [place] [address] [facility] [address] [place] [address] Referral ID Status Reason Start Date Expiration Date Visits Re quested Visits Authorized [id number] Closed 11/27/2016 11/27/2017 2 2 Encounter Details Date Type Department Care Team (Latest Contact Info) Description 12/05/2016 10:00 AM EDT Procedure visit Obstetrics [place] [address] Angelica Perez MD [facility] OBSTETRICS [place] [address] Abnormal findings on screening of mother; H/O delivery, currently , second trimester Social [...] Sign Reading Time Taken Comments Blood Pressure 116/70 12/05/2016 8:40 AM EDT Pulse - - Temperature - - Respiratory Rate - - Oxygen Saturation - - Inhaled Oxygen Concentration - - Weight 79.5 kg (175 lb 3.2 oz) 12/05/2016 8:40 A M EDT Height - - Body Mass Index - - documented in this encounter Progress Notes * Angelica Perez MD - 12/05/2016 10:00 AM EDT Maternal Medicine Consult Note Trinity Muñiz is a 26 y.o. with an LISA of 04/26/17 who is at 19w5d gestation by LMP 07/20/16 and ultrasound 05/02/16 @ 9.0 weeks. She is seen in consultation at the request of Geovanni Dubois CNM for evaluation of a quad screen positive for trisomy 21. She was seen today for maternal- medicine consultation, ultrasound evaluation and genetic counseling with Natividad Leon MS. She was previously seen this for the question of management of in light of . The patient has had a quad screen this predicting risk of trisomy 21 at 1:220, trisomy 18 at 1:50,000. The risk for open neural tube defect is low based on MSAFP of 0.79 MOM. The patient reports that this has been uncomplicated to date. She denies bleeding, leaking of fluid, pain or regular contractions. Her Past Medical and Surgical history is remarkable for: Prior gestational diabetes with normal early screen this Prior late . She opted not to take 17 hydroxyprogesterone caproate A family history was updated. There is a family history of Charcot Latisha Tooth. The patient appearsnot to be affected. There is no other history of structural abnormalities, inheritable disease, learning disability, intellectual disability, epilepsy, or repetitive loss. The ethnic backgrounds do not suggest a significantly increased genetic risk. Current Outpatient Prescriptions Medication Sig Dispense Refill ??? levothyroxine (SYNTHROID) 175 mcg Tablet TAKE 1 TABLET BY MOUTH ONCE DAILY 1 ??? VITAMIN PLUS LOW IRON 27 mg iron- 1 mg Tablet TAKE ONE TABLET BY MOUTH EVERY DAY 0 No current facility-administered medications for this visit. No Known Allergies Record Review No additional issues Review of Systems Constitutional: fatigued Contractions: none Leaking: none Bleeding: none 6 additional negative Physical Exam Last Set of Vitals: BP 116/70 (BP Location (NBP): Right arm, Patient Position: Sitting, BP Cuff Sizes: Adult (25-34 cm)) Wt 79.5 kg (175 lb 3.2 oz) LMP 07/20/2016 (Exact Date) Weight - Scale: 79.5 kg (175 lb 3.2 oz) General: alert, well appearing, in no apparent distress Abdomen: abdomen is soft without significant tenderness Psychiatric: Affect is appropriate. Uterine Size: consistent with dates and obesity Ultrasound Growth appropriate for gestational age EGA 18 4/7 weeks Amniotic fluid volume normal Placenta anterior Presentation cephalic Morphology No structural abnormality or marker for aneuploidy. Assessment and Recommendations: 26 y.o. at 19w5d weeks' gestation. Quad screen elevated to risk for Down syndrome at 1:220. Genetic sonogram today demonstrates no evidence suggesting aneuploidy. This reduces her risk to 1:440. I reviewed with her the option of amniocentesis, the limitations of information provided, delay to diagnosis and risk of miscarriage. She declined amniocentesis citing risk of miscarriage. She opted for [place] today. Results will be availa ble in 1-2 weeks. Dating. When I reviewed her dating, I noted that she had an ultrasound that was 6 days discrepant at 9 weeks so the menstrual dates should be used. Prior late . At her scan the alodize machine helper did not know that issue and a cervical lengthwas not done. The patient was not able to wait 30 min to have it performed and preferred to do it at her home hospital. The abdominal views were unremarkable, but cervical length can really only be well-assessed vaginally. I appreciate the opportunity to be involved in this patient's care and am available if further questions should arise. Angelica Perez MD 12/05/2016 Cc: Geovanni Dubois CNM documented in this encounter Plan of Treatment Not on file documented as of this encounter Procedures Procedure Name Priority Date/Time Associated Diagnosis Comments MISCELLANEOUS LAB REQUEST Routine 12/05/2016 11:36 AM EDT Abnormal findings on screening of mother documented in this encounter Results * Miscellaneous Lab request (12/05/2016 11:36 AM EDT) Label Request received in lab. [facility] Blood specimen (specimen) 12/05/2016 11:36 AM EDT 12/05/2016 1:32 PM EDT Narrative Resulting Agency Comment Spec In Lab Angelica Perez MD LAB SEND OUT ORDERAB LES [facility] [place] [address] documented in this encounter Visit Diagnoses Diagnosis Abnormal findings on screening of mother Abnormal findings on screening H/O delivery, currently , second trimester documented in this encounter Care Teams Division Field Inspector Relationship Specialty Start Date End Date None None PCP - General 10/17/16 documented as of this encounter
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
--- OUTSIDE RECORDS SUMMARY | 2023-11-05 20:05 | XMS_ITS | Encounter Summary ---
Author Organization [facility] Address [address] [place] [address] Care Team Providers Care Band Salvager Name Role Phone AlfredoAbbey PAOLA Primary Care Provider [phone] Yariel Ferreira RPA Primary Care Provider [phone] Encounter Details Date Type Department Care Team (Late st Contact Info) Description 08/24/2021 Lab Requisition [facility] Pathology & Laboratory Medicine - [address] [address] Outr Resulting Lab, Provider Social History Tobacco [...] Procedure Name Priority Date/Time Associated Diagnosis Comments CHLAMYDIA/N. GONORRHOEAE AMPLIFIED NUCLEIC ACID Routine 08/23/2021 9:45 EDT documented in this encounter Results * CHLAMYDIA/N. GONORRHOEAE AMPLIFIED RNA (08/23/2021 9:45 EDT) Neisseria gonorrhoeae Result Negative Negative 08/25/2021 14:40 EDT [facility] Chlamydia trachomatis Result Negative Negative 08/25/2021 14:40 EDT [facility] Swab ENTIRE VAGINA / Unknown 08/23/2021 9:45 EDT 08/24/2021 16:58 EDT Provider Outr Resulting Lab MICROBIOLOGY - GENERAL ORDERABLES [facility] [address] [place] [address] documented in this encounter Visit Diagnoses Not on filedocumented in this encounter Care Teams Band Salvager Relationship Specialty Start Date End Date Abbey Fuentes APRN [address] [facility] [address] [place], [place] [address] PCP - General 07/20/17 10/26/23 Yariel Ferreira RPA [address] [facility] [address] [place], [place] [address] PCP - General Family Medicine - Primary Care 10/27/23 documented as of this encounter
--- OUTSIDE RECORDS SUMMARY | 2023-11-05 20:05 | XMS_ITS | Encounter Summary ---
Author Organization [facility] Address [address] [place] [address] Care Team Providers Care Rpg Developer Name Role Phone Kumar Smith MD Primary Care Provider [phone] Encounter Details Date Type Department Care Team (Late st Contact Info) Description 06/07/2013 Pre-Procedure Orders Encounter C [facility] [address] [place], [place] [id number] Elroy Nunez MD [address] [address] Social History Tobacco Use Types Packs/Day Years Used Date Smoking Tobacco: Never Assessed Sex and Gender Information Value Date Recorded Sex Assigned at Not on file Gender Identity Female 10/27/2023 20:13 EDT Sexual Orientation Not on file documented as of this encounter Plan of Treatment Not on file documented as of this encounter Visit Diagnoses Not on filedocumented in this encounter Care Teams Rpg Developer Relationship Specialty Start Date End Date Kumar Smith MD [address] [place] [id number] PCP - General 07/17/08 07/19/17 documented as of this encounter
--- OUTSIDE RECORDS SUMMARY | 2023-11-05 20:05 | XMS_ITS | Encounter Summary ---
[place] [address] Care Team Providers Care Public Speaking Instructor Name Role Phone Kumar Smith MD Primary Care Provider [phone] Reason for Visit * Reason Comments Maternal Condition Encounter Details Date Type Department Care Team (Late st Contact Info) Description 01/12/2011 Unscheduled Encounter [place] [id number] Shanice Parker MD [address] [place] [address] P[place] [address] Maternal diabetes mellitus, antepartum (Primary Dx) Social History Tobacco Use Types Packs/Day Years [...] Notes * Shanice Parker MD - 01/12/2011 4:42 PM EDT .Referring provider: Dr Peña Primary OB provider: Britt Rodríguez Vinay Indication for Evaluation: maternal history of diabetes Patient present history: Trinity Muñiz is a 20 y.o. old female who is currently at 22 weeks gestation based on an EDC of 05/18/11. She has a history of diet controlled gestational diabetes and presents for a echocardiogram to rule out congenital heart disease. She denies any complications with the . She plans to deliver at [facility]. Medications: Current outpatient prescriptions ordered prior to encounter Medication Sig Dispense Refill ??? levothyroxine (SYNTHROID) 100 mcg tablet Take 100 mcg by mouth daily. ??? Ibfkclqk-Xa-Tke-Fe-FA ( VITAMIN) Tab Take by mouth. ??? levothyroxine (SYNTHROID) 88 mcg tablet 88 mcg, PO, Once daily ??? drospirenone-ethinyl estradiol (RAMON 28) 3-20 mg-mcg per tablet ??? oxybutynin (DITROPAN XL) 15 mg 24 hr tablet 15 MG = 1 Tablet(s), PO, Once daily Past Medical History: gestational diabetes, hypothyroidism Family Medical History: No known family history of congenital heart disease, other defects orgenetic syndromes. The father of the baby is 23 y/o and is healthy. echocardiogram results: A complete echocardiogram was performed today and demonstrates a single intrauterine with levocardia, visceral situs solitus, [S,D,S] normal segmental anatomy with normal chamber dimensions and wall motion. The heart rate was 150 bpm and the AV interval was 111 ms. There is a normal rhythm. The tricuspid valve appears normal. There is no evidence of tricuspid insufficiency. The mitral valve appears normal. There is no evidence of mitral regurgitation. Qualitatively, there is normal biventricular size and shortening. There is no pulmonary stenosis or insufficiency. There is no aortic stenosis or insufficiency. There is no evidence of coarctation of the aorta. There is a ductus arteriosus with nonrestricted right to left flow. There is a moderate size foramen ovale with right to left flow. There is no evidence of a VSD. There is no evidence of pericardial effusion. ? There are normal umbilical artery and umbilical vein flow patterns. There are normal flow patterns in the MCA and ductus venosus. See full report for further details. Diagnosis: 20 y/o female at 22 weeks gestation Maternal history of gestational diabetes No evidence of structural heart disease on imaging today Recommendation: ?? I have reviewed normal cardiac anatomy with Trinity and relayed that I see no evidence of a major structural cardiac abnormality on my imaging today. We have reviewed the cardiac complications which are associated with a maternal history of diabetes. These complications include an increased risk of structural heart defects in 25 out of 1000 infants (risk is 8 in 1000 in the general population) as well as biventricular hypertrophy. This is usually a transient disorder which resolves over the first 6 months of life, however in rare cases may cause hemodynamic compromise after . I have also relayed that echocardiography may not be able to detect certain septal defects, coarctation of the aorta, or subtle valve abnormalities, nor can it predict the persistence of structures related to circulation such as a patent foramen ovale or a patent ductus arteriosus. Therefore, if there is any suspicion of a cardiac abnormality after , further evaluation would be warranted. Otherwise no specific Cardiology follow up of the child is needed. Trinity does not require further follow up in our clinic unless additional concerns arise. 15 of 15 minutes were spent with the patient in counseling to discuss normal cardiac anatomy and physiology, review of today's echocardiogram results and review of those findings which can and cannot be prenatally detected as described above. documented in this encounter Plan of Treatment Not on file documented as of this encounter Visit Diagnoses Diagnosis Maternal diabetes mellitus, antepartum- Primary Diabetes mellitus, antepartum documented in this encounter Care Teams Public Speaking Instructor Relationship Specialty Start Date End Date Kumar Smith MD PCP - General 02/08/10 10/16/16 documented as of this encounter
--- OUTSIDE RECORDS SUMMARY | 2023-11-05 20:06 | XMS_ITS | Encounter Summary ---
Author Organization [facility] Address [address] [place] [address] Care Team Providers Care Marble Carver Name Role Phone Unavailable Primary Care Provider Unavailabl e Encounter Details Date Type Department Care Team (Late st Contact Info) Description 07/10/2008 Orders Only [facility] Laboratory Services - [facility] ([facility]) [address] [place] [address] Dorys Choi, CALENDER INSPECTOR [address] [id number] Social History Tobacco Use Types Packs/Day Years Used Date Smoking Tobacco: Never Assessed Sex and Gender Information Value Date Recorded Sex Assigned at Not on file Gender Identity Female 10/27/2023 20:13 EDT Sexual Orientation Not on file documented as of this encounter Plan of Treatment Not on file documented as of this encounter Procedures Procedure Name Priority Date/Time Associated Diagnosis Comments HPV DETECTION, HIGH RISK TYPES Routine 07/10/2008 9:30 EDT CYTOPATHOLOGY Routine 07/10/2008 0:00 EDT documented in this encounter Results * HUMAN PAPILLOMA VIRUS DNA TEST (07/10/2008 9:30 EDT) Specimen Description Cervix, ThinPrep vial [facility] Result Positive for one or more of HPV types 16,18,31,33,35 ,39,45,51,52,5 6,58,59, or 68. These high/intermedi ate risk HPV types are associated with dysplasia and some cervical cancers. [facility] Report Status Final 07/22/2008 [facility] 07/10/2008 9:30 EDT 07/17/2008 10:37 EDT Dorys Choi NP MICROBIOLOGY - GENER AL ORDERABLES [facility] [address] [place] [address] * CYTOPATHOLOGY (07/10/2008 0:00 EDT) Pathology Report: CYTOPATHOLOGY REPORT ? Reports generated via electronic interface contain original data; ? however they are lacking the format of the original report. ? Caution should be taken when reading/interpreti ng unformatted reports. ? Name: ? HERO MEDLEY ? Accession #: ? [id number] ? : ? 1990 (Age: 17) ??F ?Collect Date: ? 07/10/2008 ? Location: ? [facility] ? Receive Date: ? 07/13/2008 ? Provider: ?DORYS W BESCH CALENDER INSPECTOR ? Copy to: ? Specimen/Source: ?Pap Test, Cervix/Endocervix, ThinPrep Imaging System ? with manual evaluation ? Last Menstrual Period: ? 03/21/09 ? Other: ? HPVDX - HPV testing requested regardless of diagnosis on current ThinPrep Pap ?? test. ? SPECIMEN ADEQUACY ? Satisfactory for Evaluation ? - transformation zone component present ? GENERAL CATEGORIZATION ? Epithelial Cell Abnormality ? INTERPRETATION ? Squamous Cell Abnormality - Low grade squamous intraepithelial lesion ? (LSIL). ? EDUCATIONAL NOTES/RECOMMENDATI ONS ? [facility] recommends following the 2006 Consensus Guidelines for the Management of Women with Abnormal Cervical Cancer Screening Tests (JLGTD, ? 2007;11(4):201-222 ). ??Consensus guidelines are available online at ? www.ASCCP.org. ? Document reviewed and electronically signed by: ? Bertram B. Ambaye, MD ? Report Date: ??07/16/2008 13:50 ? End of Report ? [facility] 07/10/2008 07/13/2008 Dorys Choi CALENDER INSPECTOR PATHOLOGY ORDERABLES [facility] [address] [place] [address] documented in this encounter Visit Diagnoses Not on filedocumented in this encounter
== END 2023-11-05 20:02 | disposition home or self-care (01) ==
LOC: NCHCN 20:01
PROVIDERS: PCP Physician Assistant; Referring Provider Physician Assistant; Visit Provider Physician Assistant
DX: E03.9 Hypothyroidism, unspecified (principal)
CPT/HCPCS: 84443

== ENCOUNTER 2024-09-11 00:22 | Outpatient (CLI) | payer MEDICAID, SELFPAY ==
--- NOTE | 2024-09-11 07:15 | DI.RAD_ITS ---
Exam(s) XR ANKLE LT COMPLETE EXAM: XR ANKLE LT COMPLETE CLINICAL HISTORY: Left ankle pain,M25.572 TECHNIQUE: 2D digital imaging was performed of the left ankle. Three images were obtained. AP, lateral and oblique views were obtained. COMPARISON: No exams were available for comparison FINDINGS: BONES: No acute fracture is present. Syndesmosis stabilization is seen in the distal tibia and fibula. No bony destructive lesion is seen. Callus formation is seen about the fibula around the proximal syndesmosis device. This suggest a healing fibular injury. Occult fracture should be considered. There are no priors for comparison to assess the chronicity of the callus. There is also callus formation seen posteriorly adjacent to the posterior malleolus which may represent a healing/healed fracture. JOINTS:The ankle mortise is normally aligned. SOFT TISSUE: There is diffuse soft tissue swelling of the ankle. No radiopaque foreign bodies are seen. There is a well corticated osseous density at the tip of the medial malleolus which appears chronic. IMPRESSION: Callus formation seen about the distal fibula and adjacent to the posterior malleolus suggesting healed/healing fractures. If there are prior studies for comparison, they should be submitted and an addendum will be issued at that time. DATA REPOSITORY: RADIATION DOSE DELIVERED:
--- NOTE | 2024-09-11 12:30 | DI.RAD_ITS ---
Exam(s) XR ANKLE LT COMPLETE EXAM: XR ANKLE LT COMPLETE CLINICAL HISTORY: M25.572 Left ankle pain TECHNIQUE: 2D digital imaging was performed. Three views. COMPARISON: CR XR ANKLE LT COMPLETE from 09/11/2024 FINDINGS: BONES: A distal fibular fixation plate and syndesmosis stabilization is again noted. Callus formation is again noted at the distal fibula at the level of the proximal portion of the fixation plate and proximal tight rope. Circumscribed bony densities are again noted posterior to the posterior malleolus. No bony destructive lesion is seen. JOINTS:The ankle mortise is normally aligned. SOFT TISSUE: Normal. IMPRESSION: The ankle mortise appears intact. Stable appearance of callus formation at the distal fibula. No change from exam performed earlier the same day. DATA REPOSITORY: RADIATION DOSE DELIVERED:
== END 2024-09-11 00:42 ==
PROVIDERS: PCP Physician Assistant; Visit Provider Podiatrist
DX: M25.572 Pain in left ankle and joints of left foot (principal)
CPT/HCPCS: 73610

== ENCOUNTER 2024-10-02 14:04 | Outpatient (CLI) | payer MEDICAID, SELFPAY ==
--- NOTE | 2024-10-02 | DI.RAD_ITS ---
Exam(s) XR ANKLE LT COMPLETE EXAM: XR ANKLE LT COMPLETE CLINICAL HISTORY: PAIN LEFT ANKLE M25.572 INCREASED PAIN, RECENT HX ORIF. TECHNIQUE: 2D digital imaging was performed. COMPARISON: CR XR ANKLE LT COMPLETE from 09/11/2024 CR XR ANKLE LT COMPLETE from 09/11/2024 FINDINGS: 3 views There is prominent soft tissue swelling around the entire ankle again noted. Distal fibular lateral fixation plate and 2 horizontal channels for syndesmosis stabilization are again noted. There is callus formation again noted in the distal fibula on its medial aspect at the level of the more superior of the 2 stabilization channels. On the lateral view multiple small calcifications are noted posteriorly but there does not appear to be an obvious posterior malleolus fracture. There is a thin osteophytic density subjacent to the medial malleolus which is probably related to prior avulsion injury. Ankle mortise appears unchanged from images of 09/11/2024 IMPRESSION: Findings appear similar to 09/11/2024. There is no decrease in amount of soft tissue swelling surrounding the ankle and lower calf. Hardware as above but no radiographic evidence of osteomyelitis. DATA REPOSITORY: RADIATION DOSE DELIVERED:
== END 2024-10-02 14:24 ==
PROVIDERS: PCP Physician Assistant; Visit Provider Physician Assistant
DX: M25.572 Pain in left ankle and joints of left foot (principal)
CPT/HCPCS: 73610